=== PATIENT | male | born 1955 | race Caucasian/White ===

== ENCOUNTER → 2018-05-08 14:17 | Outpatient (CLI) | payer MEDICARE, SELFPAY | PROVIDERS: PCP Internal Medicine; Visit Provider Internal Medicine | DX: L89.43 Pressure ulcer of contiguous site of back, buttock and hip, stage 3 (principal); G82.20 Paraplegia, unspecified | CPT/HCPCS: 11042; 87070; 87075; 87077; 87147; 87186; 87205 ==

== ENCOUNTER → 2018-05-14 14:38 | Outpatient (CLI) | payer MEDICARE, SELFPAY ==
--- NOTE | 2018-05-14 | OV.WND_ITS ---
Progress Note Details Patient Name: Tommy Skelton Patient Number: [id number] PatientPatientDate: 05/14/2018 Clinician: Marilin Hernandez Clinician Cosigner: Jackeline John Physician / Epitaxial Reactor Operator: Ricky Castillo SUBJECTIVE Chief Complaint This information was obtained from the patient Wound on left hip. Allergies latex (Severity: Severe, Reaction: rashed and blister.) HPI This information was obtained from the patient 05/14/18. Seen by Dr. Castillo. The patient is now on Augmentin for the Staph positive wound culture taken from his chronic left hip pressure ulcer at his last visit. He does not report adverse side effects nor significant drainage from the ulcer and he's offloading as recommended noting his wheelchair dependent due to paraplegia. Staff also report he's applying a topical poultice to the ulcer base despite being advised at his last visit to not do this. 05/08/18. Seen by Dr. Castillo. The patient returns to clinic with a left hip ulcer he states has been present for 2 weeks and may have started as a spider bite and is located over the site of previous pressure ulcers and along a surgical scar. He's paraplegic and wheelchair dependent and uses an offloading cushion on his chair. He does not report significant drainage at the site and has not been on antibiotics. 04/01/18. Seen by Dr. Castillo. The patient does not report pain nor drainage associated with the trauma wound over the base the penis since his visit last week. He has been applying topical gentamicin as recommended as well. 03/24/18. Seen by Dr. Castillo. The patient returns to clinic with what appears to be a trauma wound on the base of his penis that he states occurred when his condom catheter was too placed too tightly. This occurred about a month ago and of note he is a paraplegic and is now using an indwelling catheter. He has seen his urologist who advised to take amoxicillin however he has refused to do that. 10/02/17. Seen by Dr. Castillo. The patient does not report significant drainage associated with the suprapubic nor left lateral scrotal wound. The culture from the last visit of the scrotal wound grew MRSA and he's been applying topical gentamicin as recommended. Of note, he reports last evening that he had some significant swelling and pain of the scrotum and felt a firmness around the left testicle however much this seems to resolved as of today and he does not report any pain although he notes the swelling persists somewhat. He does not report fevers or feeling unwell and is not currently on oral antibiotics. 09/25/17. Seen by Dr. Castillo. The patient continues to report some pain associated with the wound along the left aspect of the scrotum. He does not report any pain or drainage associated with suprapubic wound however since started taking Augmentin for the ESBL wound culture from 2 weeks ago. 09/18/17. Seen by Dr. Castillo. The patient's wound culture grew an Escherichia coli species with significant resistance. He is not currently on oral antibiotics and has been applying topical gentamicin to the suprapubic nonhealing wound. He continues to report pain in the periwound area and notes that urine will often leak around his condom catheter and has possibly contaminated the wound in the past. He does not report fevers or feeling unwell and does not feel the drainage from the wound in increasing. 09/12/17. Seen by Dr. Castillo. The patient is new to our clinic and presents with a suprapubic wound that he states has resulted from dehiscence of a surgical wound from a month ago following a sizable abscess incision and drainage performed at [facility]. He reports some yellow purulent drainage from the wound site and feels that it's getting larger in diameter. He also has some discomfort during dressing changes. He is a paraplegic and utilizes a condom catheter and also states there is a small wound along the proximal margin of his penis feels that's nearly healed. The patient also reports a recent history of c. diff colitis following treatment with antibiotics that resolved with oral vancomycin. Past Medical History This information was obtained from the patient Patient has a medical history of: Type II Diabetes CVA Hypertension Anxiety Paraplegia Spinal cord injury Urinary Tract Infection (re current) Scrotal mass Complaints and Symptoms This information was obtained from the patient Patient complains of: General Notes: I have reviewed and concur with the Review of Systems and Past Family Social History documents completed by the clinician, I have reviewed and concur with the Wound Assessment document completed by the clinician Genitourinary (): Urinary Incontinence Integumentary (Hair/Skin/Nails): Open Sore Musculoskeletal: Assistive Devices, Muscle Wasting, Muscle Weakness Neurological: Loss of Protective Sensation Prior Wound History: Drainage, Erythema, Pain Patient denies complaints or symptoms related to: Cardiovascular (Central): Irregular heart beat Constitutional Symptoms (General Health): Chills, Fever Ear/Nose/Mouth/Throat: Hearing Loss / Aid Gastrointestinal (GI): Nausea / Vomiting, Stomach/abdominal pain Hematologic/Lymphatic: Bleeding / Clotting Disorders, Bleeding Tendency Prior Wound History: Bleeding Psychiatric: Memory Loss Respiratory: Oxygen Use, Shortness of Breath OBJECTIVE Constitutional Vital signs reviewed and noted. Temperature: 98.6 ?F (37 ?C), Pulse: 101 bpm, Respiratory Rate: 16 breaths/min, Blood Pressure: 155/77 mmHg, Pulse Oximetry: 97 %. Vital Signs Notes: Patient takes insulin but doesn't check his glucose. Ears, Nose, Mouth, and Throat: No clinically significant hearing loss on informal examination. Respiratory: No respiratory distress. Even respirations and without use of accessory muscles.. Musculoskeletal: Left leg flacid paralysis. Integumentary (Hair, Skin) No periwound erythema, warmth, or significant drainage. No periwound rashes appreciated or noted otherwise.. Refer to appropriate clinician wound documentation for this visit; left hip ulcer extends to subcut with base partially covered with pink granulation, remainder fibrin and slough; appears smaller than on last review. Wound #4 Left, Lateral Hip is an acute Stage 3 Pressure Injury Pressure Ulcer and has received a status of Not Healed. Subsequent wound encounter measurements are 1.5cm length x 1cm width x 0.3cm depth, with an area of 1.5 sq cm and a volume of 0.45 cubic cm. No tunneling has been noted. No sinus tract has been noted. No undermining has been noted. There is a moderate amount of serous drainage noted which has no odor. The patient reports no wound pain due to the wound being insensate. The wound margin is rolled. Wound bed has No epithelialization, No eschar, Yes slough, Yes pink, firm granulation. The periwound skin moisture is normal. The periwound skin color is normal. The periwound skin exhibited: Induration. The periwound skin did not exhibit: Brawny Induration, Edema, Excoriation, Callus, Crepitus, Fluctuance, Friable, Rash. The temperature of the periwound skin is WNL. Periwound skin does not exhibit signs or symptoms of infection. Local Pulse is N/A. Neurological: Cranial nerves grossly intact with symmetric function normal by informal observation.. ASSESSMENT Active Problems ICD-10 (Encounter Diagnosis) L89.43 - Pressure ulcer of contiguous site of back, buttock and hip, stage 3 (Encounter Diagnosis) G82.20 - Paraplegia, unspecified (Encounter Diagnosis) L08.9 - Local infection of the skin and subcutaneous tissue, unspecified (Encounter Diagnosis) Z91.19 - Patient's noncompliance with other medical treatment and regimen PROCEDURES Wound #4 Wound #4 (Pressure Ulcer) is located on the left, lateral hip. A skin/ subcutaneous tissue level surgical debridement with a total area debrided of 1.5 sq cm was performed by Ricky Castillo MD. Subcutaneous was removed along with devitalized tissue: slough. The following instrument(s) were used: curette. Pain control was achieved using Lidocaine 2 % Jelly. A time out was conducted prior to the start of the procedure. A minimal amount of bleeding was controlled with pressure. The procedure was tolerated well with a pain level of 0 throughout and a pain level of 0 following the procedure. Post Debridement Measurements: 1.5cm length x 1cm width x 0.4cm depth; with an area of 1.5 sq cm and a volume of 0.6 cubic cm; Additional Information Muscle fascia or bone removed and sent to pathology?: No PLAN Wound Orders: Wound #4 Left, Lateral Hip Anesthetic Topical Xylocaine to wound bed. - In clinic. Cleanser Cleanse Wound: - Normal saline and gauze, may use distilled water at home. May Shower. - Please avoid getting in contact with shower water. Cover with saran wrap and tape. Topical Treatments Antibiotic/Antimicrobial Ointment/Cream. - Gentamicin ointment. Dressings Cover and secure with: - Foam secured with hypafix tape. Change Dressing: - Every other day. Additional Orders: Follow-Up Appointments Return Appointment: - - One week. Other information: If you develop fever, chills, increased pain, drainage, redness or swelling please call our office. If after hours, respond to the ER. Should you experience any significant changes in your wound(s) or have any questions regarding your home care instructions please contact the wound center @ [phone]. If after hours, contact your primary care physician or go to the hospital emergency room. Scribing Attestation I attest, as the nurse, that I scribed these orders for the physician. I've reviewed the clinician's documentation and agree with the evaluation and plan as written. In addition, the patient's ulcer demonstrates evidence of non-viable devitalized tissue which will continue to benefit from sharp debridement to help promote granulation and expedite healing. Also, the patient will continue on antibiotics and apply only topical gentamicin to the ulcer site as recommended. Electronic Signature(s) Signed By: Date: Ricky Castillo MD 05/14/2018 15:30:00 Entered By: Ricky Castillo on 05/14/2018 15:20:40
== END ==
PROVIDERS: PCP Family Medicine; Visit Provider Internal Medicine
DX: L89.223 Pressure ulcer of left hip, stage 3 (principal); G82.20 Paraplegia, unspecified; L08.9 Local infection of the skin and subcutaneous tissue, unspecified; Z91.19 Patient's noncompliance with other medical treatment and regimen
CPT/HCPCS: 11042

== ENCOUNTER → 2018-05-21 13:25 | Outpatient (CLI) | payer MEDICARE, SELFPAY ==
--- NOTE | 2018-05-21 | OV.WND_ITS ---
Progress Note Details Patient Name: Tommy Skelton Patient Number: [id number] PatientPatientDate: 05/21/2018 Clinician: Tamela Escalante Physician / Quality Technician Fiberglass: Enoc Brenner SUBJECTIVE Chief Complaint This information was obtained from the patient Wound on left hip. Allergies latex (Severity: Severe, Reaction: rashed and blister.) HPI This information was obtained from the patient 05/21/18. Seen by Rashid Brenner PA-C. The patient reports stable drainage from his left hip ulcer and he continues on Augmentin for the infection of this ulcer. 05/14/18. Seen by Dr. Castillo. The patient is now on Augmentin for the Staph positive wound culture taken from his chronic left hip pressure ulcer at his last visit. He does not report adverse side effects nor significant drainage from the ulcer and he's offloading as recommended noting his wheelchair dependent due to paraplegia. Staff also report he's applying a topical poultice to the ulcer base despite being advised at his last visit to not do this. 05/08/18. Seen by Dr. Castillo. The patient returns to clinic with a left hip ulcer he states has been present for 2 weeks and may have started as a spider bite and is located over the site of previous pressure ulcers and along a surgical scar. He's paraplegic and wheelchair dependent and uses an offloading cushion on his chair. He does not report significant drainage at the site and has not been on antibiotics. 04/01/18. Seen by Dr. Castillo. The patient does not report pain nor drainage associated with the trauma wound over the base the penis since his visit last week. He has been applying topical gentamicin as recommended as well. 03/24/18. Seen by Dr. Castillo. The patient returns to clinic with what appears to be a trauma wound on the base of his penis that he states occurred when his condom catheter was too placed too tightly. This occurred about a month ago and of note he is a paraplegic and is now using an indwelling catheter. He has seen his urologist who advised to take amoxicillin however he has refused to do that. 10/02/17. Seen by Dr. Castillo. The patient does not report significant drainage associated with the suprapubic nor left lateral scrotal wound. The culture from the last visit of the scrotal wound grew MRSA and he's been applying topical gentamicin as recommended. Of note, he reports last evening that he had some significant swelling and pain of the scrotum and felt a firmness around the left testicle however much this seems to resolved as of today and he does not report any pain although he notes the swelling persists somewhat. He does not report fevers or feeling unwell and is not currently on oral antibiotics. 09/25/17. Seen by Dr. Castillo. The patient continues to report some pain associated with the wound along the left aspect of the scrotum. He does not report any pain or drainage associated with suprapubic wound however since started taking Augmentin for the ESBL wound culture from 2 weeks ago. 09/18/17. Seen by Dr. Castillo. The patient's wound culture grew an Escherichia coli species with significant resistance. He is not currently on oral antibiotics and has been applying topical gentamicin to the suprapubic nonhealing wound. He continues to report pain in the periwound area and notes that urine will often leak around his condom catheter and has possibly contaminated the wound in the past. He does not report fevers or feeling unwell and does not feel the drainage from the wound in increasing. 09/12/17. Seen by Dr. Castillo. The patient is new to our clinic and presents with a suprapubic wound that he states has resulted from dehiscence of a surgical wound from a month ago following a sizable abscess incision and drainage performed at [facility]. He reports some yellow purulent drainage from the wound site and feels that it's getting larger in diameter. He also has some discomfort during dressing changes. He is a paraplegic and utilizes a condom catheter and also states there is a small wound along the proximal margin of his penis feels that's nearly healed. The patient also reports a recent history of c. diff colitis following treatment with antibiotics that resolved with oral vancomycin. Family History This information was obtained from the patient Cancer - Father, Diabetes - Father, Heart Disease - Paternal Grandparents, Kidney Disease - Mother Social History This information was obtained from the patient Never smoker, Lives in - private home -alone, Marital Status - Past Medical History This information was obtained from the patient Patient has a medical history of: Type II Diabetes CVA Hypertension Anxiety Paraplegia Spinal cord injury Urinary Tract Infection (re current) Scrotal mass Complaints and Symptoms This information was obtained from the patient Patient complains of: General Notes: I have reviewed and concur with the Review of Systems and Past Family Social History documents completed by the clinician, I have reviewed and concur with the Wound Assessment document completed by the clinician Genitourinary (): Urinary Incontinence Integumentary (Hair/Skin/Nails): Open Sore Musculoskeletal: Assistive Devices, Muscle Wasting, Muscle Weakness Neurological: Loss of Protective Sensation Prior Wound History: Drainage, Erythema, Pain Patient denies complaints or symptoms related to: Cardiovascular (Central): Irregular heart beat Constitutional Symptoms (General Health): Chills, Fever Ear/Nose/Mouth/Throat: Hearing Loss / Aid Gastrointestinal (GI): Nausea / Vomiting, Stomach/abdominal pain Hematologic/Lymphatic: Bleeding / Clotting Disorders, Bleeding Tendency Prior Wound History: Bleeding Psychiatric: Memory Loss Respiratory: Oxygen Use, Shortness of Breath OBJECTIVE Constitutional Vital signs reviewed. Elevated blood sugar noted. Well developed, lucid, and in no acute distress. . Temperature: 99.2 ?F (37.33 ?C), Pulse: 85 bpm, Respiratory Rate: 16 breaths/min, Blood Pressure: 130/74 mmHg, Capillary Blood Glucose: 231 mg/dl, Pulse Oximetry : 96 %. Ears, Nose, Mouth, and Throat: Grossly intact. Respiratory: No respiratory distress. Even respirations and without use of accessory muscles.. Integumentary (Hair, Skin) Refer to appropriate clinician wound documentation for this visit; ulcer extends to subcutaneous fat layer. . Wound #4 Left, Lateral Hip is an acute Stage 3 Pressure Injury Pressure Ulcer and has received a status of Not Healed. Subsequent wound encounter measurements are 1.6cm length x 1cm width x 0.2cm depth, with an area of 1.6 sq cm and a volume of 0.32 cubic cm. No tunneling has been noted. No sinus tract has been noted. No undermining has been noted. There is a moderate amount of serous drainage noted which has no odor. The patient reports no wound pain due to the wound being insensate. The wound margin is rolled. Wound bed has No epithelialization, No eschar, Yes slough, Yes pink, firm granulation. The periwound skin moisture is normal. The periwound skin color is normal. The periwound skin exhibited: Induration. The periwound skin did not exhibit: Brawny Induration, Edema, Excoriation, Callus, Crepitus, Fluctuance, Friable, Rash. The temperature of the periwound skin is WNL. Periwound skin does not exhibit signs or symptoms of infection. Local Pulse is N/A. Psychiatric: Judgement and insight: Normal affect with normal thought pattern. Alert and oriented 3/3. Memory grossly intact.. Normal affect. Mood appropriate.. ASSESSMENT Active Problems ICD-10 (Encounter Diagnosis) L89.43 - Pressure ulcer of contiguous site of back, buttock and hip, stage 3 (Encounter Diagnosis) G82.20 - Paraplegia, unspecified (Encounter Diagnosis) L08.9 - Local infection of the skin and subcutaneous tissue, unspecified (Encounter Diagnosis) Z91.19 - Patient's noncompliance with other medical treatment and regimen PROCEDURES Wound #4 Wound #4 (Pressure Ulcer) is located on the left, lateral hip. A skin/ subcutaneous tissue level surgical debridement with a total area debrided of 1.6 sq cm was performed by Enoc Brenner PA. Subcutaneous was removed along with devitalized tissue: slough. The following instrument (s) were used: curette. No anesthetic was required due to loss of sensation. A time out was conducted prior to the start of the procedure. A minimal amount of bleeding was controlled with n/a. The procedure was tolerated well with a pain level of 0 throughout and a pain level of 0 following the procedure. Post Debridement Measurements: 1.6cm length x 1cm width x 0.3cm depth; with an area of 1.6 sq cm and a volume of 0.48 cubic cm; Additional Information Muscle fascia or bone removed and sent to pathology?: No PLAN Wound Orders: Wound #4 Left, Lateral Hip Anesthetic Topical Xylocaine to wound bed. - In clinic. Cleanser Cleanse Wound: - Normal saline and gauze, may use distilled water at home. May Shower. - Please avoid getting in contact with shower water. Cover with saran wrap and tape. Topical Treatments Antibiotic/Antimicrobial Ointment/Cream. - Iodosob Dressings Cover and secure with: - Foam secured with hypafix tape. Change Dressing: - Every other day. Additional Orders: Follow-Up Appointments Return Appointment: - - One week. Other information: If you develop fever, chills, increased pain, drainage, redness or swelling please call our office. If after hours, respond to the ER. Should you experience any significant changes in your wound(s) or have any questions regarding your home care instructions please contact the wound center @ [phone]. If after hours, contact your primary care physician or go to the hospital emergency room. Scribing Attestation I attest, as the nurse, that I scribed these orders for the physician. General Notes: Please complete Augmentin as prescribed. I've reviewed the clinician's documentation and agree with the evaluation and plan as written. In addition the patient's ulcer demonstrates evidence of non-viable devitalized tissue which benefits from sharp debridement. Separate from the need for debridement today to speed healing, the patient's infection was assessed and appears to still be active. The patient was enouraged to continue complying with the ordered antimicrobial regemin for ongoing treatment for this issue. Electronic Signature(s) Signed By: Date: Rashid Brenner 05/25/2018 16:56:38 Entered By: Rashid Brenner on 05/25/2018 16:39:13
== END ==
PROVIDERS: PCP Family Medicine; Visit Provider Internal Medicine
DX: L89.223 Pressure ulcer of left hip, stage 3 (principal); G82.20 Paraplegia, unspecified; L08.9 Local infection of the skin and subcutaneous tissue, unspecified
CPT/HCPCS: 11042

== ENCOUNTER → 2018-05-28 14:55 | Outpatient (CLI) | payer MEDICARE, SELFPAY ==
--- NOTE | 2018-05-28 | OV.WND_ITS ---
Progress Note Details Patient Name: Tommy Skelton Patient Number: [id number] PatientPatientDate: 05/28/2018 Clinician: Tonya Munoz Clinician Cosigner: Keri Acosta Physician / Remelt Furnace Expediter: Ricky Castillo SUBJECTIVE Chief Complaint This information was obtained from the patient Wound on left hip. Allergies latex (Severity: Severe, Reaction: rashed and blister.) HPI This information was obtained from the patient 05/28/18. Seen by Dr. Castillo. The patient does not report significant drainage associated with the left hip pressure ulcer and he's offloading as much as possible noting he's wheelchair dependent due to paraplegia. The nurse also states he's applying an oregano spray to the ulcer despite being advised to only dress and treat the ulcer as per our recommendations. He also reports recurrence of some swelling around his suprapubic catheter site however has not contacted his urologist and he states he's hoping to re-establish care with another urologist in [place]. 05/21/18. Seen by Rashid Brenner PA-C. The patient reports stable drainage from his left hip ulcer and he continues on Augmentin for the infection of this ulcer. 05/14/18. Seen by Dr. Castillo. The patient is now on Augmentin for the Staph positive wound culture taken from his chronic left hip pressure ulcer at his last visit. He does not report adverse side effects nor significant drainage from the ulcer and he's offloading as recommended noting his wheelchair dependent due to paraplegia. Staff also report he's applying a topical poultice to the ulcer base despite being advised at his last visit to not do this. 05/08/18. Seen by Dr. Castillo. The patient returns to clinic with a left hip ulcer he states has been present for 2 weeks and may have started as a spider bite and is located over the site of previous pressure ulcers and along a surgical scar. He's paraplegic and wheelchair dependent and uses an offloading cushion on his chair. He does not report significant drainage at the site and has not been on antibiotics. 04/01/18. Seen by Dr. Castillo. The patient does not report pain nor drainage associated with the trauma wound over the base the penis since his visit last week. He has been applying topical gentamicin as recommended as well. 03/24/18. Seen by Dr. Castillo. The patient returns to clinic with what appears to be a trauma wound on the base of his penis that he states occurred when his condom catheter was too placed too tightly. This occurred about a month ago and of note he is a paraplegic and is now using an indwelling catheter. He has seen his urologist who advised to take amoxicillin however he has refused to do that. 10/02/17. Seen by Dr. Castillo. The patient does not report significant drainage associated with the suprapubic nor left lateral scrotal wound. The culture from the last visit of the scrotal wound grew MRSA and he's been applying topical gentamicin as recommended. Of note, he reports last evening that he had some significant swelling and pain of the scrotum and felt a firmness around the left testicle however much this seems to resolved as of today and he does not report any pain although he notes the swelling persists somewhat. He does not report fevers or feeling unwell and is not currently on oral antibiotics. 09/25/17. Seen by Dr. Castillo. The patient continues to report some pain associated with the wound along the left aspect of the scrotum. He does not report any pain or drainage associated with suprapubic wound however since started taking Augmentin for the ESBL wound culture from 2 weeks ago. 09/18/17. Seen by Dr. Castillo. The patient's wound culture grew an Escherichia coli species with significant resistance. He is not currently on oral antibiotics and has been applying topical gentamicin to the suprapubic nonhealing wound. He continues to report pain in the periwound area and notes that urine will often leak around his condom catheter and has possibly contaminated the wound in the past. He does not report fevers or feeling unwell and does not feel the drainage from the wound in increasing. 09/12/17. Seen by Dr. Castillo. The patient is new to our clinic and presents with a suprapubic wound that he states has resulted from dehiscence of a surgical wound from a month ago following a sizable abscess incision and drainage performed at [facility]. He reports some yellow purulent drainage from the wound site and feels that it's getting larger in diameter. He also has some discomfort during dressing changes. He is a paraplegic and utilizes a condom catheter and also states there is a small wound along the proximal margin of his penis feels that's nearly healed. The patient also reports a recent history of c. diff colitis following treatment with antibiotics that resolved with oral vancomycin. Past Medical History This information was obtained from the patient Patient has a medical history of: Type II Diabetes CVA Hypertension Anxiety Paraplegia Spinal cord injury Urinary Tract Infection (re current) Scrotal mass Complaints and Symptoms This information was obtained from the patient Patient complains of: General Notes: I have reviewed and concur with the Review of Systems and Past Family Social History documents completed by the clinician, I have reviewed and concur with the Wound Assessment document completed by the clinician Genitourinary (): Urinary Incontinence Integumentary (Hair/Skin/Nails): Open Sore Musculoskeletal: Assistive Devices, Muscle Wasting, Muscle Weakness Neurological: Loss of Protective Sensation Prior Wound History: Drainage, Erythema, Pain Patient denies complaints or symptoms related to: Cardiovascular (Central): Irregular heart beat Constitutional Symptoms (General Health): Chills, Fever Ear/Nose/Mouth/Throat: Hearing Loss / Aid Gastrointestinal (GI): Nausea / Vomiting, Stomach/abdominal pain Hematologic/Lymphatic: Bleeding / Clotting Disorders, Bleeding Tendency Prior Wound History: Bleeding Psychiatric: Memory Loss Respiratory: Oxygen Use, Shortness of Breath OBJECTIVE Constitutional BP normal; Low grade fever; Alert and in no distress. Well developed. Alert. Clean appearing.. Height/Length: 73 in (185.42 cm), Weight: 185 lbs (84.09 kgs), BMI: 24.4, Temperature: 99.5 ?F (37.5 ?C), Pulse: 86 bpm, Respiratory Rate: 16 breaths/min, Blood Pressure: 131/71 mmHg, Pulse Oximetry: 97 %. Ears, Nose, Mouth, and Throat: No clinically significant hearing loss on informal examination. Respiratory: No respiratory distress. Even respirations and without use of accessory muscles.. Gastrointestinal (GI): Obese. Nondistended.. Musculoskeletal: Significant left gluteal wasting. Integumentary (Hair, Skin) No periwound erythema, warmth, or significant drainage. No periwound rashes appreciated or noted otherwise.. Refer to appropriate clinician wound documentation for this visit; left hip ulcer extends to subcut with base mostly covered with pink granulation, minimal slough; smaller than on previous review. Wound #4 Left, Lateral Hip is an acute Stage 3 Pressure Injury Pressure Ulcer and has received a status of Not Healed. Subsequent wound encounter measurements are 0.8cm length x 1.4cm width x 0.2cm depth, with an area of 1.12 sq cm and a volume of 0.224 cubic cm. No tunneling has been noted. No sinus tract has been noted. No undermining has been noted. There is a scant amount of purulent drainage noted which has no odor. The patient reports no wound pain due to the wound being insensate. The wound margin is rolled. Wound bed has No epithelialization, No eschar, Yes slough, Yes bright red, firm granulation. The periwound skin moisture is normal. The periwound skin color is normal. The periwound skin exhibited: Induration. The periwound skin did not exhibit: Brawny Induration, Edema, Excoriation, Callus, Crepitus, Fluctuance, Friable, Rash. The temperature of the periwound skin is WNL. Periwound skin does not exhibit signs or symptoms of infection. Local Pulse is N/A. Neurological: Cranial nerves grossly intact with symmetric function normal by informal observation.. ASSESSMENT Active Problems ICD-10 (Encounter Diagnosis) L89.43 - Pressure ulcer of contiguous site of back, buttock and hip, stage 3 (Encounter Diagnosis) G82.20 - Paraplegia, unspecified (Encounter Diagnosis) Z91.19 - Patient's noncompliance with other medical treatment and regimen (Encounter Diagnosis) M79.9 - Soft tissue disorder, unspecified PROCEDURES Wound #4 Wound #4 (Pressure Ulcer) is located on the left, lateral hip. A skin/ subcutaneous tissue level surgical debridement with a total area debrided of 1.12 sq cm was performed by Ricky Castillo MD. Subcutaneous was removed along with devitalized tissue: slough. The following instrument(s) were used: curette. Pain control was achieved using 2% Lido. A time out was conducted prior to the start of the procedure. A minimal amount of bleeding was controlled with silver nitrate. The procedure was tolerated well with a pain level of 0 throughout and a pain level of 0 following the procedure. Post Debridement Measurements: 0.8cm length x 1.4cm width x 0.2cm depth; with an area of 1.12 sq cm and a volume of 0.224 cubic cm; Additional Information Muscle fascia or bone removed and sent to pathology?: No PLAN Wound Orders: Wound #4 Left, Lateral Hip Cleanser Cleanse Wound: - With Normal saline or distilled water. Dressings Pack wound: - Gentamicin to wound. Primary dressing: - Border foam Change Dressing: - Daily Follow-Up Appointments Return Appointment: - - One week Medications prescribed: gentamicin - topical 0.1 % ointment other for 7 days starting 05/28/2018 I've reviewed the clinician's documentation and agree with the evaluation and plan as written. In addition, the patient's ulcer demonstrates evidence of non-viable devitalized tissue which will continue to benefit from sharp debridement to help promote granulation and expedite healing. Also, the patient's ulcer continues to improve and he'll continue to try to offload the site as much as possible. We've also advised him that there's not currently a urologist working in [place] and recommended he contact Dr. Monte's office if he'd like to discuss the recurrent supra-pubic soft tissue swelling. Electronic Signature(s) Signed By: Date: Ricky Castillo MD 05/29/2018 09:59:55 Entered By: Ricky Castillo on 05/29/2018 09:01:42
== END ==
PROVIDERS: PCP Family Medicine; Visit Provider Internal Medicine
DX: L89.223 Pressure ulcer of left hip, stage 3 (principal); G82.20 Paraplegia, unspecified; Z91.19 Patient's noncompliance with other medical treatment and regimen; M79.9 Soft tissue disorder, unspecified
CPT/HCPCS: 11042

== ENCOUNTER → 2018-06-03 14:59 | Outpatient (CLI) | payer MEDICARE, SELFPAY ==
--- NOTE | 2018-06-03 | OV.WND_ITS ---
Progress Note Details Patient Name: Tommy Skelton Patient Number: [id number] PatientPatientDate: 06/03/2018 Clinician: Marilin Hernandez Physician / Mechanical Assembler: Ricky Castillo SUBJECTIVE Chief Complaint This information was obtained from the patient Wound on left hip. Cut on penis . Allergies latex (Severity: Severe, Reaction: rashed and blister.) HPI This information was obtained from the patient 06/03/18. Seen by Dr. Castillo. The patient does not report significant drainage associated with the left hip pressure ulcer. He does report however significant clear drainage from the suprapubic wound site this morning and complains of a progressive ulcer at the base of his penis along the margin of the condom catheter. Complicating his condition is the fact he's paraplegic and he's has a number of urologic complications including recently having difficulty with his indwelling urinary catheter. He's scheduled to see urology on 06/05 for this issue. 05/28/18. Seen by Dr. Castillo. The patient does not report significant drainage associated with the left hip pressure ulcer and he's offloading as much as possible noting he's wheelchair dependent due to paraplegia. The nurse also states he's applying an oregano spray to the ulcer despite being advised to only dress and treat the ulcer as per our recommendations. He also reports recurrence of some swelling around his suprapubic catheter site however has not contacted his urologist and he states he's hoping to re-establish care with another urologist in [place]. 05/21/18. Seen by Rashid Brenner PA-C. The patient reports stable drainage from his left hip ulcer and he continues on Augmentin for the infection of this ulcer. 05/14/18. Seen by Dr. Castillo. The patient is now on Augmentin for the Staph positive wound culture taken from his chronic left hip pressure ulcer at his last visit. He does not report adverse side effects nor significant drainage from the ulcer and he's offloading as recommended noting his wheelchair dependent due to paraplegia. Staff also report he's applying a topical poultice to the ulcer base despite being advised at his last visit to not do this. 05/08/18. Seen by Dr. Castillo. The patient returns to clinic with a left hip ulcer he states has been present for 2 weeks and may have started as a spider bite and is located over the site of previous pressure ulcers and along a surgical scar. He's paraplegic and wheelchair dependent and uses an offloading cushion on his chair. He does not report significant drainage at the site and has not been on antibiotics. 04/01/18. Seen by Dr. Castillo. The patient does not report pain nor drainage associated with the trauma wound over the base the penis since his visit last week. He has been applying topical gentamicin as recommended as well. 03/24/18. Seen by Dr. Castillo. The patient returns to clinic with what appears to be a trauma wound on the base of his penis that he states occurred when his condom catheter was too placed too tightly. This occurred about a month ago and of note he is a paraplegic and is now using an indwelling catheter. He has seen his urologist who advised to take amoxicillin however he has refused to do that. 10/02/17. Seen by Dr. Castillo. The patient does not report significant drainage associated with the suprapubic nor left lateral scrotal wound. The culture from the last visit of the scrotal wound grew MRSA and he's been applying topical gentamicin as recommended. Of note, he reports last evening that he had some significant swelling and pain of the scrotum and felt a firmness around the left testicle however much this seems to resolved as of today and he does not report any pain although he notes the swelling persists somewhat. He does not report fevers or feeling unwell and is not currently on oral antibiotics. 09/25/17. Seen by Dr. Castillo. The patient continues to report some pain associated with the wound along the left aspect of the scrotum. He does not report any pain or drainage associated with suprapubic wound however since started taking Augmentin for the ESBL wound culture from 2 weeks ago. 09/18/17. Seen by Dr. Castillo. The patient's wound culture grew an Escherichia coli species with significant resistance. He is not currently on oral antibiotics and has been applying topical gentamicin to the suprapubic nonhealing wound. He continues to report pain in the periwound area and notes that urine will often leak around his condom catheter and has possibly contaminated the wound in the past. He does not report fevers or feeling unwell and does not feel the drainage from the wound in increasing. 09/12/17. Seen by Dr. Castillo. The patient is new to our clinic and presents with a suprapubic wound that he states has resulted from dehiscence of a surgical wound from a month ago following a sizable abscess incision and drainage performed at [facility]. He reports some yellow purulent drainage from the wound site and feels that it's getting larger in diameter. He also has some discomfort during dressing changes. He is a paraplegic and utilizes a condom catheter and also states there is a small wound along the proximal margin of his penis feels that's nearly healed. The patient also reports a recent history of c. diff colitis following treatment with antibiotics that resolved with oral vancomycin. Past Medical History This information was obtained from the patient Patient has a medical history of: Type II Diabetes CVA Hypertension Anxiety Paraplegia Spinal cord injury Urinary Tract Infection (re current) Scrotal mass Complaints and Symptoms This information was obtained from the patient Patient complains of: General Notes: I have reviewed and concur with the Review of Systems and Past Family Social History documents completed by the clinician, I have reviewed and concur with the Wound Assessment document completed by the clinician Genitourinary (): Urinary Incontinence Integumentary (Hair/Skin/Nails): Open Sore Musculoskeletal: Assistive Devices, Muscle Wasting, Muscle Weakness Neurological: Loss of Protective Sensation Prior Wound History: Drainage, Erythema, Pain Patient denies complaints or symptoms related to: Cardiovascular (Central): Irregular heart beat Constitutional Symptoms (General Health): Chills, Fever Ear/Nose/Mouth/Throat: Hearing Loss / Aid Gastrointestinal (GI): Nausea / Vomiting, Stomach/abdominal pain Hematologic/Lymphatic: Bleeding / Clotting Disorders, Bleeding Tendency Prior Wound History: Bleeding Psychiatric: Memory Loss Respiratory: Oxygen Use, Shortness of Breath OBJECTIVE Constitutional Vital signs reviewed and noted. Well developed. Alert. Clean appearing.. Height/ Length: 73 in (185.42 cm), Weight: 185 lbs (84.09 kgs), BMI: 24.4, Temperature: 98.7 ?F ( 37.06 ?C), Pulse: 97 bpm, Respiratory Rate: 16 breaths/min, Blood Pressure: 126/63 mmHg, Pulse Oximetry: 96 %. Ears, Nose, Mouth, and Throat: No clinically significant hearing loss on informal examination. Respiratory: No respiratory distress. Even respirations and without use of accessory muscles.. Musculoskeletal: Significant left gluteal wasting. Integumentary (Hair, Skin) Moderate periwound erythema around the base of the penis wound. Refer to appropriate clinician wound documentation for this visit; left hip ulcer extends to subcut with base mostly covered with pink granulation, smaller than on previous review; linear ulcer at base of penis extends to subcu with base covered with wet slough, no purulent drainage; suprapubic wound appears clean and without appreciable drainage on probing with swab. Wound #4 Left, Lateral Hip is an acute Stage 3 Pressure Injury Pressure Ulcer and has received a status of Not Healed. Subsequent wound encounter measurements are 0.6cm length x 0.3cm width x 0.1cm depth, with an area of 0.18 sq cm and a volume of 0.018 cubic cm. No tunneling has been noted. No sinus tract has been noted. No undermining has been noted. There is a scant amount of purulent drainage noted which has no odor. The patient reports no wound pain due to the wound being insensate. The wound margin is rolled. Wound bed has No epithelialization, No eschar, Yes slough, Yes pink, firm granulation. The periwound skin moisture is normal. The periwound skin color is normal. The periwound skin exhibited: Induration. The periwound skin did not exhibit: Brawny Induration, Edema, Excoriation, Callus, Crepitus, Fluctuance, Friable, Rash. The temperature of the periwound skin is WNL. Periwound skin does not exhibit signs or symptoms of infection. Local Pulse is N/A. Wound #5 Perineum is an acute Full Thickness Surgical Wound and has received a status of Not Healed. Initial wound encounter measurements are 0.3cm length x 0.3cm width x 0.2cm depth, with an area of 0.09 sq cm and a volume of 0.018 cubic cm. No tunneling has been noted. No sinus tract has been noted. No undermining has been noted. There is a moderate amount of serous drainage noted which has no odor. The patient reports a wound pain of level 0/10. The wound margin is attached. Wound bed has No epithelialization, No eschar, No slough, No granulation. The periwound skin texture is normal. The periwound skin moisture is normal. The periwound skin color is normal. Wound #6 Penis is an acute Full Thickness Trauma Wound and has received a status of Not Healed. Initial wound encounter measurements are 4.5cm length x 1.5cm width x 0.1cm depth, with an area of 6.75 sq cm and a volume of 0.675 cubic cm. No tunneling has been noted. No sinus tract has been noted. No undermining has been noted. There is a small amount of serous drainage noted which has no odor. The patient reports a wound pain of level 0/10. The wound margin is attached. Wound bed has No epithelialization, No eschar, Yes slough, No granulation. The periwound skin texture is normal. The periwound skin moisture is normal. The periwound skin color is normal. The temperature of the periwound skin is WNL. Periwound skin presents with s/s of infection. Neurological: Cranial nerves grossly intact with symmetric function normal by informal observation.. ASSESSMENT Active Problems ICD-10 (Encounter Diagnosis) L89.43 - Pressure ulcer of contiguous site of back, buttock and hip, stage 3 (Encounter Diagnosis) G82.20 - Paraplegia, unspecified (Encounter Diagnosis) S31.20XD - Unspecified open wound of penis, subsequent encounter (Encounter Diagnosis) T81.31XD - Disruption of external operation (surgical) wound, not elsewhere classified, subsequent encounter (Encounter Diagnosis) L08.9 - Local infection of the skin and subcutaneous tissue, unspecified PROCEDURES Wound #4 Wound #4 (Pressure Ulcer) is located on the left, lateral hip. A skin/ subcutaneous tissue level surgical debridement with a total area debrided of 0.36 sq cm was performed by Ricky Castillo MD. Subcutaneous was removed along with devitalized tissue: slough. The following instrument(s) were used: curette. Pain control was achieved using 4% Lido. A time out was conducted prior to the start of the procedure. A minimal amount of bleeding was controlled with pressure. The procedure was tolerated well with a pain level of 0 throughout and a pain level of 0 following the procedure. Post Debridement Measurements: 0.6cm length x 0.6cm width x 0.2cm depth; with an area of 0.36 sq cm and a volume of 0.072 cubic cm; PLAN Wound Orders: Wound #4 Left, Lateral Hip Cleanser Cleanse Wound: - Normal saline or distilled water Topical Treatments Antibiotic/Antimicrobial Ointment/Cream. - Gentamicin Dressings Primary dressing: - Border foam Follow-Up Appointments Return Appointment: - - One week. Scribing Attestation I attest, as the nurse, that I scribed these orders for the physician. Wound #5 Perineum Cleanser Cleanse Wound: - Normal saline or distilled water Topical Treatments Antibiotic/Antimicrobial Ointment/Cream. - Gentamicin Dressings Primary dressing: - Gentamicin then poise pad Follow-Up Appointments Return Appointment: - - One week. Scribing Attestation I attest, as the nurse, that I scribed these orders for the physician. Wound #6 Penis Cleanser Cleanse Wound: - Normal saline or distilled water Topical Treatments Antibiotic/Antimicrobial Ointment/Cream. - Gentamicin Dressings Primary dressing: - Gentamicin then poise pad Follow-Up Appointments Return Appointment: - - One week. Scribing Attestation I attest, as the nurse, that I scribed these orders for the physician. Medications prescribed: Augmentin - oral 875 mg-125 mg tablet twice daily for 5 days for infected wound starting 06/03/2018 General Notes: Start antibiotic and finish in 7 days. I've reviewed the clinician's documentation and agree with the evaluation and plan as written. In addition, the patient's ulcer demonstrates evidence of non-viable devitalized tissue which will continue to benefit from sharp debridement to help promote granulation and expedite healing. Also, the patient's left hip ulcer is making good progress in terms of healing. The wound along the base of the penis appears infected however and this has been cultured and I' ve started him empirically on Augmentin. The suprapubic ulcer has also been cultured and we 'll await feedback from his urologist regarding placement of the Renteria catheter. Electronic Signature(s) Signed By: Date: Ricky Castillo MD 06/05/2018 08:46:21 Entered By: Ricky Castillo on 06/05/2018 08:35:24
== END ==
PROVIDERS: PCP Family Medicine; Visit Provider Internal Medicine
DX: L89.43 Pressure ulcer of contiguous site of back, buttock and hip, stage 3 (principal); S31.20XD Unspecified open wound of penis, subsequent encounter; T81.31XD Disruption of external operation (surgical) wound, not elsewhere classified, subsequent encounter; G82.20 Paraplegia, unspecified; L08.9 Local infection of the skin and subcutaneous tissue, unspecified
CPT/HCPCS: 11042; 87070; 87075; 87077; 87186; 87205

== ENCOUNTER → 2018-06-10 12:49 | Outpatient (CLI) | payer MEDICARE, SELFPAY ==
--- NOTE | 2018-06-10 | DI.CT.S_ITS ---
PROCEDURE: CT PELVIS W CON INDICATIONS: INFECTION DUE TO IPP TECHNIQUE: After the administration of oral contrast and intravenous contrast, 5 mm thick sections acquired from the iliac crests to the symphysis. 5 mm thick coronal and sagittal reformats were acquired. For radiation dose reduction, the following was used: automated exposure control, adjustment of mA and/or kV according to patient size. COMPARISON: [facility], [place], TESTICLE IMAGING, 10/18/2017, 15:09. [facility], CT, KIDNEY/ URETER/BLADDER, 08/16/2017, 14:49. [facility], CT, ABDOMEN/PELVIS WITH CONTRAST, 08/14/2017, 19:54. [facility], [place], TESTICLE IMAGING, 08/14/2017, 18:20. [facility], CT, PELVIS WITHOUT CONTRAST, 12/21/2016, 14:37. FINDINGS: Image quality: Excellent. Peritoneum and bowel: Contrast enhanced bowel loops demonstrate normal wall thickness and caliber. No free fluid or air. The rectum appears prolapsed, unchanged. Genitourinary: Bladder is decompressed with a Renteria catheter. Severe bladder wall thickening is present. The prosthesis is present. There is significant thickening within the scrotal healy. There are small circumscribed foci of fluid present at the perineum/scrotal junction on the left, the largest measuring 11 mm. In addition, layering fluid is also present within the scrotum. Inflammatory changes also noted along the perineum particularly on left. Nodes and vessels: No iliac, pelvic, or inguinal adenopathy. Iliac vessels demonstrate normal size and enhancement. Bones: No suspicious bony lesions. There is chronic deformity of the left inferior pubic ramus an issue. Miscellaneous: No inguinal hernias. Partially visualized bilateral renal cysts are unchanged. IMPRESSION: 1. Inflammation, fluid levels as well as areas of rim-enhancing fluid within the scrotum and perineum as described above. Small foci of fluid enhancement are suggestive of small microabscesses. It is noted that while the appearance is most suggestive of infection or inflammation, chronicity is somewhat indeterminate as multiple prior exams demonstrated very degrees of similar inflammation, fluid, air and/or abnormal enhancement. The above findings were discussed with Dr. Kate Crespo on 06/10/18 at 4:45 PM Dictated by: Elvira Ibarra M.D. on 06/10/2018 at 16:50 Approved by: Elvira Ibarra M.D. on 06/10/2018 at 17:06
[2018-06-10 13:32] LABS: Blood Urea Nitrogen 14 mg/dL (9-20); Calcium 9.5 mg/dL (8.4-10.2); Carbon Dioxide 24 mmol/L (22-32); Chloride 96 mmol/L (98-107); Estimated Glomerular Filt Rate > 60.0 mL/min (>60); Glucose 264 mg/dL (80-110); HEMOLYSIS < 15 (0-50); Potassium 4.8 mmol/L (3.4-5.1); Sodium 135 mmol/L (137-145)
== END ==
PROVIDERS: PCP Family Medicine; Visit Provider Specialist
DX: N40.1 Benign prostatic hyperplasia with lower urinary tract symptoms (principal); M79.89 Other specified soft tissue disorders; R19.00 Intra-abdominal and pelvic swelling, mass and lump, unspecified site
CPT/HCPCS: 36415; 72193; 80048; Q9967

== ENCOUNTER → 2018-06-10 13:34 | Outpatient (CLI) | payer MEDICARE, SELFPAY ==
--- NOTE | 2018-06-10 | OV.WND_ITS ---
Progress Note Details Patient Name: Tommy Skelton Patient Number: [id number] PatientPatientDate: 06/10/2018 Clinician: Tamela Escalante Physician / Equipment Tester: Ricky Castillo SUBJECTIVE Chief Complaint This information was obtained from the patient Wound on left hip. Cut on penis . Allergies latex (Severity: Severe, Reaction: rashed and blister.) HPI This information was obtained from the patient 06/10/18. Seen by Dr. Castillo. The patient does not report significant drainage associated with the left hip pressure ulcer. He's now on Bactrim for the E. coli positive culture taken from the circumferential ulcer at the base of his penis that was caused while wearing a condom catheter. He's paraplegic and had a Renteria catheter placed since his last visit. He also has a CT scheduled for today to evaluate for the persistent drainage from the site of his suprapubic catheter wound. 06/03/18. Seen by Dr. Castillo. The patient does not report significant drainage associated with the left hip pressure ulcer. He does report however significant clear drainage from the suprapubic wound site this morning and complains of a progressive ulcer at the base of his penis along the margin of the condom catheter. Complicating his condition is the fact he's paraplegic and he's has a number of urologic complications including recently having difficulty with his indwelling urinary catheter. He's scheduled to see urology on 06/05 for this issue. 05/28/18. Seen by Dr. Castillo. The patient does not report significant drainage associated with the left hip pressure ulcer and he's offloading as much as possible noting he's wheelchair dependent due to paraplegia. The nurse also states he's applying an oregano spray to the ulcer despite being advised to only dress and treat the ulcer as per our recommendations. He also reports recurrence of some swelling around his suprapubic catheter site however has not contacted his urologist and he states he's hoping to re-establish care with another urologist in [place]. 05/21/18. Seen by Rashid Brenner PA-C. The patient reports stable drainage from his left hip ulcer and he continues on Augmentin for the infection of this ulcer. 05/14/18. Seen by Dr. Castillo. The patient is now on Augmentin for the Staph positive wound culture taken from his chronic left hip pressure ulcer at his last visit. He does not report adverse side effects nor significant drainage from the ulcer and he's offloading as recommended noting his wheelchair dependent due to paraplegia. Staff also report he's applying a topical poultice to the ulcer base despite being advised at his last visit to not do this. 05/08/18. Seen by Dr. Castillo. The patient returns to clinic with a left hip ulcer he states has been present for 2 weeks and may have started as a spider bite and is located over the site of previous pressure ulcers and along a surgical scar. He's paraplegic and wheelchair dependent and uses an offloading cushion on his chair. He does not report significant drainage at the site and has not been on antibiotics. 04/01/18. Seen by Dr. Castillo. The patient does not report pain nor drainage associated with the trauma wound over the base the penis since his visit last week. He has been applying topical gentamicin as recommended as well. 03/24/18. Seen by Dr. Castillo. The patient returns to clinic with what appears to be a trauma wound on the base of his penis that he states occurred when his condom catheter was too placed too tightly. This occurred about a month ago and of note he is a paraplegic and is now using an indwelling catheter. He has seen his urologist who advised to take amoxicillin however he has refused to do that. 10/02/17. Seen by Dr. Castillo. The patient does not report significant drainage associated with the suprapubic nor left lateral scrotal wound. The culture from the last visit of the scrotal wound grew MRSA and he's been applying topical gentamicin as recommended. Of note, he reports last evening that he had some significant swelling and pain of the scrotum and felt a firmness around the left testicle however much this seems to resolved as of today and he does not report any pain although he notes the swelling persists somewhat. He does not report fevers or feeling unwell and is not currently on oral antibiotics. 09/25/17. Seen by Dr. Castillo. The patient continues to report some pain associated with the wound along the left aspect of the scrotum. He does not report any pain or drainage associated with suprapubic wound however since started taking Augmentin for the ESBL wound culture from 2 weeks ago. 09/18/17. Seen by Dr. Castillo. The patient's wound culture grew an Escherichia coli species with significant resistance. He is not currently on oral antibiotics and has been applying topical gentamicin to the suprapubic nonhealing wound. He continues to report pain in the periwound area and notes that urine will often leak around his condom catheter and has possibly contaminated the wound in the past. He does not report fevers or feeling unwell and does not feel the drainage from the wound in increasing. 09/12/17. Seen by Dr. Castillo. The patient is new to our clinic and presents with a suprapubic wound that he states has resulted from dehiscence of a surgical wound from a month ago following a sizable abscess incision and drainage performed at [facility]. He reports some yellow purulent drainage from the wound site and feels that it's getting larger in diameter. He also has some discomfort during dressing changes. He is a paraplegic and utilizes a condom catheter and also states there is a small wound along the proximal margin of his penis feels that's nearly healed. The patient also reports a recent history of c. diff colitis following treatment with antibiotics that resolved with oral vancomycin. Past Medical History This information was obtained from the patient Patient has a medical history of: Type II Diabetes CVA Hypertension Anxiety Paraplegia Spinal cord injury Urinary Tract Infection (re current) Complaints and Symptoms This information was obtained from the patient Patient complains of: General Notes: I have reviewed and concur with the Review of Systems and Past Family Social History documents completed by the clinician, I have reviewed and concur with the Wound Assessment document completed by the clinician Genitourinary (): Urinary Incontinence Integumentary (Hair/Skin/Nails): Open Sore Musculoskeletal: Assistive Devices, Muscle Wasting, Muscle Weakness Neurological: Loss of Protective Sensation Prior Wound History: Drainage, Erythema, Pain Patient denies complaints or symptoms related to: Cardiovascular (Central): Irregular heart beat Constitutional Symptoms (General Health): Chills, Fever Ear/Nose/Mouth/Throat: Hearing Loss / Aid Gastrointestinal (GI): Nausea / Vomiting, Stomach/abdominal pain Hematologic/Lymphatic: Bleeding / Clotting Disorders, Bleeding Tendency Prior Wound History: Bleeding Psychiatric: Memory Loss Respiratory: Oxygen Use, Shortness of Breath OBJECTIVE Constitutional BP normal; Low grade fever; Alert and in no distress. Well developed. Alert. Clean appearing.. Height/Length: 73 in (185.42 cm), Weight: 185 lbs (84.09 kgs), BMI: 24.4, Temperature: 99.2 ?F (37.33 ?C), Pulse: 95 bpm, Respiratory Rate: 16 breaths/min, Blood Pressure: 123/63 mmHg, Pulse Oximetry: 95 %. Ears, Nose, Mouth, and Throat: No clinically significant hearing loss on informal examination. Respiratory: No respiratory distress. Even respirations and without use of accessory muscles.. Gastrointestinal (GI): Obese. Nondistended.. Musculoskeletal: Left leg spastic paralysis. Integumentary (Hair, Skin) Mild periwound erythema without warmth. Refer to appropriate clinician wound documentation for this visit; left hip ulcer extends to dermis; linear ulcer beneath base of penis extends to subcut, base covered with slough and minimal pink granulation. Wound #4 Left, Lateral Hip is an acute Stage 3 Pressure Injury Pressure Ulcer and has received a status of Not Healed. Subsequent wound encounter measurements are 0cm length x 0cm width with no measurable depth, with an area of 0 sq cm . No tunneling has been noted. No sinus tract has been noted. No undermining has been noted. There was no drainage noted. The patient reports no wound pain due to the wound being insensate. The wound margin is rolled. Wound bed has Yes epithelialization, No eschar, No slough, No granulation. The periwound skin texture is normal. The periwound skin moisture is normal. The periwound skin color is normal. The temperature of the periwound skin is WNL. Periwound skin does not exhibit signs or symptoms of infection. Local Pulse is N/A. Wound #5 Perineum is an acute Full Thickness Surgical Wound and has received a status of Not Healed. Subsequent wound encounter measurements are 0.3cm length x 0.3cm width x 0.2cm depth, with an area of 0.09 sq cm and a volume of 0.018 cubic cm. No tunneling has been noted. No sinus tract has been noted. No undermining has been noted. There is a large amount of serous drainage noted which has no odor. The patient reports a wound pain of level 0/10. The wound margin is attached. Wound bed has No epithelialization, No eschar, No slough, No granulation. The periwound skin texture is normal. The periwound skin moisture is normal. The periwound skin color is normal. The temperature of the periwound skin is WNL. Periwound skin does not exhibit signs or symptoms of infection. Local Pulse is N/A. Wound #6 Penis is an acute Full Thickness Trauma Wound and has received a status of Not Healed. Subsequent wound encounter measurements are 1.5cm length x 4cm width x 0.1cm depth, with an area of 6 sq cm and a volume of 0.6 cubic cm. No tunneling has been noted. No sinus tract has been noted. No undermining has been noted. There is a small amount of serous drainage noted which has no odor. The patient reports a wound pain of level 0/ 10. The wound margin is attached. Wound bed has Yes epithelialization, No eschar, Yes slough, Yes pink, firm granulation. The periwound skin texture is normal. The periwound skin moisture is normal. The periwound skin color is normal. The temperature of the periwound skin is WNL. Periwound skin presents with s/s of infection. Confirmation Description and Treatment Plan is: Confirmed Local, Systemic Antibiotics Prescribed. Local Pulse is N/A. ASSESSMENT Active Problems ICD-10 (Encounter Diagnosis) L89.43 - Pressure ulcer of contiguous site of back, buttock and hip, stage 3 (Encounter Diagnosis) G82.20 - Paraplegia, unspecified (Encounter Diagnosis) S31.20XD - Unspecified open wound of penis, subsequent encounter (Encounter Diagnosis) T81.31XD - Disruption of external operation (surgical) wound, not elsewhere classified, subsequent encounter (Encounter Diagnosis) B96.29 - Other Escherichia coli [E. coli] as the cause of diseases classified elsewhere PROCEDURES Wound #4 Wound #4 (Pressure Ulcer) is located on the left, lateral hip. A selective debridement with a total area debrided of 0.12 sq cm was performed by Ricky Castillo MD. to remove devitalized tissue: exudate and slough. The following instrument(s) were used: curette. No anesthetic was required due to loss of sensation. A time out was conducted prior to the start of the procedure. A minimal amount of bleeding was controlled with n/a. The procedure was tolerated well with a loss of sensation throughout and a loss of sensation following the procedure. Post Debridement Measurements: 0.4cm length x 0.3cm width x 0.1cm depth; with an area of 0.12 sq cm and a volume of 0.012 cubic cm; PLAN Wound Orders: Wound #4 Left, Lateral Hip Cleanser Cleanse Wound: - Normal saline or distilled water Topical Treatments Antibiotic/Antimicrobial Ointment/Cream. - Gentamicin Dressings Primary dressing: - Border foam Change Dressing: Scribing Attestation I attest, as the nurse, that I scribed these orders for the physician. Wound #5 Perineum Cleanser Cleanse Wound: - Normal saline or distilled water Topical Treatments Antibiotic/Antimicrobial Ointment/Cream. - Gentamicin Dressings Primary dressing: - Gentamicin then poise pad Scribing Attestation I attest, as the nurse, that I scribed these orders for the physician. Wound #6 Penis Cleanser Cleanse Wound: - Normal saline or distilled water Topical Treatments Antibiotic/Antimicrobial Ointment/Cream. - Gentamicin Dressings Primary dressing: - Gentamicin then poise pad Scribing Attestation I attest, as the nurse, that I scribed these orders for the physician. Additional Orders: Follow-Up Appointments Return Appointment: - - One week. General Notes: Please draft roller picker Bactrim and continue as prescribed I've reviewed the clinician's documentation and agree with the evaluation and plan as written. In addition, the patient's ulcer demonstrates evidence of non-viable devitalized tissue which will continue to benefit from sharp debridement to help promote granulation and expedite healing. Also, I've continued another week of Bactrim and will treat both ulcers with topical gentamicin. We'll also await the results of his CT and feedback from urology. Electronic Signature(s) Signed By: Date: Ricky Castillo MD 06/11/2018 06:43:39 Entered By: Ricky Castillo on 06/10/2018 14:31:14
== END ==
PROVIDERS: PCP Family Medicine; Visit Provider Internal Medicine
DX: G82.20 Paraplegia, unspecified (principal); L89.224 Pressure ulcer of left hip, stage 4; S31.20XD Unspecified open wound of penis, subsequent encounter; B96.29 Other Escherichia coli [E. coli] as the cause of diseases classified elsewhere
CPT/HCPCS: 36415; 72193; 80048; 97597; Q9967

== ENCOUNTER → 2018-06-18 13:38 | Outpatient (CLI) | payer MEDICARE, SELFPAY ==
--- NOTE | 2018-06-18 | OV.WND_ITS ---
Progress Note Details Patient Name: Tommy Skelton Patient Number: [id number] PatientPatientDate: 06/18/2018 Clinician: Jackeline John Clinician Cosigner: Marilin Hernandez Physician / Welder Railcar Mechanic: Ricky Castillo SUBJECTIVE Chief Complaint This information was obtained from the patient Wounds on left hip, suprapubic area and penis. Allergies latex (Severity: Severe, Reaction: rashed and blister.) HPI This information was obtained from the patient 06/18/18. Seen by Dr. Castillo. The patient's been seen by his urologist who's placed him on a one month course of Bactrim due to a reported refractory abscess associated with his prior suprapubic catheter site. He does not report drainage from the left hip pressure ulcer and is applying topical gentamicin to the ulcer beneath the base of the penis. 06/10/18. Seen by Dr. Castillo. The patient does not report significant drainage associated with the left hip pressure ulcer. He's now on Bactrim for the E. coli positive culture taken from the circumferential ulcer at the base of his penis that was caused while wearing a condom catheter. He's paraplegic and had a Renteria catheter placed since his last visit. He also has a CT scheduled for today to evaluate for the persistent drainage from the site of his suprapubic catheter wound. 06/03/18. Seen by Dr. Castillo. The patient does not report significant drainage associated with the left hip pressure ulcer. He does report however significant clear drainage from the suprapubic wound site this morning and complains of a progressive ulcer at the base of his penis along the margin of the condom catheter. Complicating his condition is the fact he's paraplegic and he's has a number of urologic complications including recently having difficulty with his indwelling urinary catheter. He's scheduled to see urology on 06/05 for this issue. 05/28/18. Seen by Dr. Castilol. The patient does not report significant drainage associated with the left hip pressure ulcer and he's offloading as much as possible noting he's wheelchair dependent due to paraplegia. The nurse also states he's applying an oregano spray to the ulcer despite being advised to only dress and treat the ulcer as per our recommendations. He also reports recurrence of some swelling around his suprapubic catheter site however has not contacted his urologist and he states he's hoping to re-establish care with another urologist in [place]. 05/21/18. Seen by Rashid Brenner PA-C. The patient reports stable drainage from his left hip ulcer and he continues on Augmentin for the infection of this ulcer. 05/14/18. Seen by Dr. Castillo. The patient is now on Augmentin for the Staph positive wound culture taken from his chronic left hip pressure ulcer at his last visit. He does not report adverse side effects nor significant drainage from the ulcer and he's offloading as recommended noting his wheelchair dependent due to paraplegia. Staff also report he's applying a topical poultice to the ulcer base despite being advised at his last visit to not do this. 05/08/18. Seen by Dr. Castillo. The patient returns to clinic with a left hip ulcer he states has been present for 2 weeks and may have started as a spider bite and is located over the site of previous pressure ulcers and along a surgical scar. He's paraplegic and wheelchair dependent and uses an offloading cushion on his chair. He does not report significant drainage at the site and has not been on antibiotics. 04/01/18. Seen by Dr. Castillo. The patient does not report pain nor drainage associated with the trauma wound over the base the penis since his visit last week. He has been applying topical gentamicin as recommended as well. 03/24/18. Seen by Dr. Castillo. The patient returns to clinic with what appears to be a trauma wound on the base of his penis that he states occurred when his condom catheter was too placed too tightly. This occurred about a month ago and of note he is a paraplegic and is now using an indwelling catheter. He has seen his urologist who advised to take amoxicillin however he has refused to do that. 10/02/17. Seen by Dr. Castillo. The patient does not report significant drainage associated with the suprapubic nor left lateral scrotal wound. The culture from the last visit of the scrotal wound grew MRSA and he's been applying topical gentamicin as recommended. Of note, he reports last evening that he had some significant swelling and pain of the scrotum and felt a firmness around the left testicle however much this seems to resolved as of today and he does not report any pain although he notes the swelling persists somewhat. He does not report fevers or feeling unwell and is not currently on oral antibiotics. 09/25/17. Seen by Dr. Castillo. The patient continues to report some pain associated with the wound along the left aspect of the scrotum. He does not report any pain or drainage associated with suprapubic wound however since started taking Augmentin for the ESBL wound culture from 2 weeks ago. 09/18/17. Seen by Dr. Castillo. The patient's wound culture grew an Escherichia coli species with significant resistance. He is not currently on oral antibiotics and has been applying topical gentamicin to the suprapubic nonhealing wound. He continues to report pain in the periwound area and notes that urine will often leak around his condom catheter and has possibly contaminated the wound in the past. He does not report fevers or feeling unwell and does not feel the drainage from the wound in increasing. 09/12/17. Seen by Dr. Castillo. The patient is new to our clinic and presents with a suprapubic wound that he states has resulted from dehiscence of a surgical wound from a month ago following a sizable abscess incision and drainage performed at [facility]. He reports some yellow purulent drainage from the wound site and feels that it's getting larger in diameter. He also has some discomfort during dressing changes. He is a paraplegic and utilizes a condom catheter and also states there is a small wound along the proximal margin of his penis feels that's nearly healed. The patient also reports a recent history of c. diff colitis following treatment with antibiotics that resolved with oral vancomycin. Past Medical History This information was obtained from the patient Patient has a medical history of: Type II Diabetes CVA Hypertension Anxiety Paraplegia Spinal cord injury Urinary Tract Infection (re current) Complaints and Symptoms This information was obtained from the patient Patient complains of: General Notes: I have reviewed and concur with the Review of Systems and Past Family Social History documents completed by the clinician, I have reviewed and concur with the Wound Assessment document completed by the clinician Genitourinary (): Urinary Incontinence Integumentary (Hair/Skin/Nails): Open Sore Musculoskeletal: Assistive Devices, Muscle Wasting, Muscle Weakness Neurological: Loss of Protective Sensation Prior Wound History: Drainage, Erythema, Pain Patient denies complaints or symptoms related to: Cardiovascular (Central): Irregular heart beat Constitutional Symptoms (General Health): Chills, Fever Ear/Nose/Mouth/Throat: Hearing Loss / Aid Gastrointestinal (GI): Nausea / Vomiting, Stomach/abdominal pain Hematologic/Lymphatic: Bleeding / Clotting Disorders, Bleeding Tendency Prior Wound History: Bleeding Psychiatric: Memory Loss Respiratory: Oxygen Use, Shortness of Breath OBJECTIVE Constitutional BP elevated; Afebrile; Alert and in no distress. Well developed. Alert. Clean appearing.. Height/Length: 73 in (185.42 cm), Weight: 185 lbs (84.09 kgs), BMI: 24.4, Temperature: 98.9 ?F (37.17 ?C), Pulse: 86 bpm, Respiratory Rate: 16 breaths/min, Blood Pressure: 138/75 mmHg, Pulse Oximetry: 97 %. Ears, Nose, Mouth, and Throat: No clinically significant hearing loss on informal examination. Gastrointestinal (GI): Obese. Nondistended.. Musculoskeletal: Significant left gluteal wasting. Integumentary (Hair, Skin) Refer to appropriate clinician wound documentation for this visit; left hip ulcer healed; linear ulcer beneath base of penis extends to subcut, base covered with slough and minimal pink granulation. Wound #4 Left, Lateral Hip is an acute Stage 3 Pressure Injury Pressure Ulcer and has received an outcome of Healed - no new wound(s). Subsequent wound encounter measurements are 0cm length x 0cm width x 0cm depth, with an area of 0 sq cm and a volume of 0 cubic cm. No tunneling has been noted. No sinus tract has been noted. No undermining has been noted. There was no drainage noted. The patient reports no wound pain due to the wound being insensate. The wound margin is rolled. Wound bed has Yes epithelialization, No eschar, No slough, No granulation. The periwound skin texture is normal. The periwound skin moisture is normal. The periwound skin color is normal. The temperature of the periwound skin is WNL. Periwound skin does not exhibit signs or symptoms of infection. Local Pulse is N/A. Wound #5 Suprapubic is an acute Full Thickness Surgical Wound and has received an outcome of Continued improvement expected post discharge. Subsequent wound encounter measurements are 0.1cm length x 0.1cm width x 0.1cm depth, with an area of 0.01 sq cm and a volume of 0.001 cubic cm. No tunneling has been noted. No sinus tract has been noted. No undermining has been noted. There was no drainage noted. The patient reports a wound pain of level 0/10. The wound margin is attached. Wound bed has Yes epithelialization , No eschar, No slough, No granulation. The periwound skin texture is normal. The periwound skin moisture is normal. The periwound skin color is normal. The temperature of the periwound skin is WNL. Periwound skin does not exhibit signs or symptoms of infection. Local Pulse is N/A. Wound #6 Penis is an acute Full Thickness Trauma Wound and has received a status of Not Healed. Subsequent wound encounter measurements are 0.7cm length x 4.5cm width x 0.2cm depth, with an area of 3.15 sq cm and a volume of 0.63 cubic cm. No tunneling has been noted. No sinus tract has been noted. No undermining has been noted. There is a small amount of serous drainage noted which has no odor. The patient reports a wound pain of level 0/10. The wound margin is attached. Wound bed has Yes epithelialization, No eschar, Yes slough, Yes pink, firm granulation. The periwound skin texture is normal. The periwound skin moisture is normal. The periwound skin color is normal. The temperature of the periwound skin is WNL. Periwound skin presents with s/s of infection. Confirmation Description and Treatment Plan is: Confirmed Local, Systemic Antibiotics Prescribed. Local Pulse is N/A. Neurological: Cranial nerves grossly intact with symmetric function normal by informal observation.. ASSESSMENT Active Problems ICD-10 (Encounter Diagnosis) L89.43 - Pressure ulcer of contiguous site of back, buttock and hip, stage 3 (Encounter Diagnosis) S31.20XD - Unspecified open wound of penis, subsequent encounter (Encounter Diagnosis) T81.31XD - Disruption of external operation (surgical) wound, not elsewhere classified, subsequent encounter (Encounter Diagnosis) L08.9 - Local infection of the skin and subcutaneous tissue, unspecified PLAN Wound Orders: Wound #6 Penis Cleanser Cleanse Wound: - Normal saline or distilled water. Topical Treatments Antibiotic/Antimicrobial Ointment/Cream. - Gentamicin ointment. Dressings Cover and secure with: - InteryDry. Change Dressing: - As needed. Follow-Up Appointments Return Appointment: - - One week. Other information: If you develop fever, chills, increased pain, drainage, redness or swelling please call our office. If after hours, respond to the ER. Should you experience any significant changes in your wound(s) or have any questions regarding your home care instructions please contact the wound center @ [phone]. If after hours, contact your primary care physician or go to the hospital emergency room. Scribing Attestation I attest, as the nurse, that I scribed these orders for the physician. General Notes: Continue Bactrim as prescribed. I've reviewed the clinician's documentation and agree with the evaluation and plan as written. Also, the patient will continue on Bactrim as per his urologist and keep applying topical gentamicin to the ulcer beneath the penis. Electronic Signature(s) Signed By: Date: Ricky Castillo MD 06/19/2018 07:19:13 Entered By: Ricky aCstillo on 06/19/2018 06:54:43
== END ==
PROVIDERS: PCP Family Medicine; Visit Provider Internal Medicine
DX: L89.223 Pressure ulcer of left hip, stage 3 (principal); S31.20XD Unspecified open wound of penis, subsequent encounter; T81.31XD Disruption of external operation (surgical) wound, not elsewhere classified, subsequent encounter; L08.9 Local infection of the skin and subcutaneous tissue, unspecified
CPT/HCPCS: 99213

== ENCOUNTER → 2018-06-25 14:22 | Outpatient (CLI) | payer MEDICARE, SELFPAY ==
--- NOTE | 2018-06-25 | OV.WND_ITS ---
Progress Note Details Patient Name: Tommy Skelton Patient Number: [id number] PatientPatientDate: 06/25/2018 Clinician: Jackeline John Clinician Cosigner: Marilin Hernandez Physician / Beader Tender: Ricky Castillo SUBJECTIVE Chief Complaint This information was obtained from the patient Trauma wound on penis. Allergies latex (Severity: Severe, Reaction: rashed and blister.) HPI This information was obtained from the patient 06/25/18. Seen by Dr. Castillo. The patient does not report significant drainage associated with the chronic ulcer beneath the base of the penis. 06/18/18. Seen by Dr. Castillo. The patient's been seen by his urologist who's placed him on a one month course of Bactrim due to a reported refractory abscess associated with his prior suprapubic catheter site. He does not report drainage from the left hip pressure ulcer and is applying topical gentamicin to the ulcer beneath the base of the penis. 06/10/18. Seen by Dr. Castillo. The patient does not report significant drainage associated with the left hip pressure ulcer. He's now on Bactrim for the E. coli positive culture taken from the circumferential ulcer at the base of his penis that was caused while wearing a condom catheter. He's paraplegic and had a Renteria catheter placed since his last visit. He also has a CT scheduled for today to evaluate for the persistent drainage from the site of his suprapubic catheter wound. 06/03/18. Seen by Dr. Castillo. The patient does not report significant drainage associated with the left hip pressure ulcer. He does report however significant clear drainage from the suprapubic wound site this morning and complains of a progressive ulcer at the base of his penis along the margin of the condom catheter. Complicating his condition is the fact he's paraplegic and he's has a number of urologic complications including recently having difficulty with his indwelling urinary catheter. He's scheduled to see urology on 06/05 for this issue. 05/28/18. Seen by Dr. Castillo. The patient does not report significant drainage associated with the left hip pressure ulcer and he's offloading as much as possible noting he's wheelchair dependent due to paraplegia. The nurse also states he's applying an oregano spray to the ulcer despite being advised to only dress and treat the ulcer as per our recommendations. He also reports recurrence of some swelling around his suprapubic catheter site however has not contacted his urologist and he states he's hoping to re-establish care with another urologist in [place]. 05/21/18. Seen by Rashid Brenner PA-C. The patient reports stable drainage from his left hip ulcer and he continues on Augmentin for the infection of this ulcer. 05/14/18. Seen by Dr. Castillo. The patient is now on Augmentin for the Staph positive wound culture taken from his chronic left hip pressure ulcer at his last visit. He does not report adverse side effects nor significant drainage from the ulcer and he's offloading as recommended noting his wheelchair dependent due to paraplegia. Staff also report he's applying a topical poultice to the ulcer base despite being advised at his last visit to not do this. 05/08/18. Seen by Dr. Castillo. The patient returns to clinic with a left hip ulcer he states has been present for 2 weeks and may have started as a spider bite and is located over the site of previous pressure ulcers and along a surgical scar. He's paraplegic and wheelchair dependent and uses an offloading cushion on his chair. He does not report significant drainage at the site and has not been on antibiotics. 04/01/18. Seen by Dr. Castillo. The patient does not report pain nor drainage associated with the trauma wound over the base the penis since his visit last week. He has been applying topical gentamicin as recommended as well. 03/24/18. Seen by Dr. Castillo. The patient returns to clinic with what appears to be a trauma wound on the base of his penis that he states occurred when his condom catheter was too placed too tightly. This occurred about a month ago and of note he is a paraplegic and is now using an indwelling catheter. He has seen his urologist who advised to take amoxicillin however he has refused to do that. 10/02/17. Seen by Dr. Castillo. The patient does not report significant drainage associated with the suprapubic nor left lateral scrotal wound. The culture from the last visit of the scrotal wound grew MRSA and he's been applying topical gentamicin as recommended. Of note, he reports last evening that he had some significant swelling and pain of the scrotum and felt a firmness around the left testicle however much this seems to resolved as of today and he does not report any pain although he notes the swelling persists somewhat. He does not report fevers or feeling unwell and is not currently on oral antibiotics. 09/25/17. Seen by Dr. Castillo. The patient continues to report some pain associated with the wound along the left aspect of the scrotum. He does not report any pain or drainage associated with suprapubic wound however since started taking Augmentin for the ESBL wound culture from 2 weeks ago. 09/18/17. Seen by Dr. Castillo. The patient's wound culture grew an Escherichia coli species with significant resistance. He is not currently on oral antibiotics and has been applying topical gentamicin to the suprapubic nonhealing wound. He continues to report pain in the periwound area and notes that urine will often leak around his condom catheter and has possibly contaminated the wound in the past. He does not report fevers or feeling unwell and does not feel the drainage from the wound in increasing. 09/12/17. Seen by Dr. Castillo. The patient is new to our clinic and presents with a suprapubic wound that he states has resulted from dehiscence of a surgical wound from a month ago following a sizable abscess incision and drainage performed at [facility]. He reports some yellow purulent drainage from the wound site and feels that it's getting larger in diameter. He also has some discomfort during dressing changes. He is a paraplegic and utilizes a condom catheter and also states there is a small wound along the proximal margin of his penis feels that's nearly healed. The patient also reports a recent history of c. diff colitis following treatment with antibiotics that resolved with oral vancomycin. Past Medical History This information was obtained from the patient Patient has a medical history of: Type II Diabetes CVA Hypertension Anxiety Paraplegia Spinal cord injury Urinary Tract Infection (re current) Complaints and Symptoms This information was obtained from the patient Patient complains of: General Notes: I have reviewed and concur with the Review of Systems and Past Family Social History documents completed by the clinician, I have reviewed and concur with the Wound Assessment document completed by the clinician Genitourinary (): Urinary Incontinence Integumentary (Hair/Skin/Nails): Open Sore Musculoskeletal: Assistive Devices, Muscle Wasting, Muscle Weakness Neurological: Loss of Protective Sensation Prior Wound History: Drainage, Erythema, Pain Patient denies complaints or symptoms related to: Cardiovascular (Central): Irregular heart beat Constitutional Symptoms (General Health): Chills, Fever Ear/Nose/Mouth/Throat: Hearing Loss / Aid Gastrointestinal (GI): Nausea / Vomiting, Stomach/abdominal pain Hematologic/Lymphatic: Bleeding / Clotting Disorders, Bleeding Tendency Prior Wound History: Bleeding Psychiatric: Memory Loss Respiratory: Oxygen Use, Shortness of Breath OBJECTIVE Constitutional Vital signs reviewed and noted. Well developed. Alert. Clean appearing.. Height/ Length: 73 in (185.42 cm), Weight: 185 lbs (84.09 kgs), BMI: 24.4, Temperature: 97.7 ?F (36.5 ?C), Pulse: 90 bpm, Respiratory Rate: 16 breaths/min, Blood Pressure: 130/74 mmHg, Pulse Oximetry: 96 %. Ears, Nose, Mouth, and Throat: No clinically significant hearing loss on informal examination. Integumentary (Hair, Skin) No periwound erythema, warmth, or significant drainage. No periwound rashes appreciated or noted otherwise.. Refer to appropriate clinician wound documentation for this visit; ulcer beneath base of penis approx 50% healed, extends to subcut with minimal slough over center. Wound #6 Penis is an acute Full Thickness Trauma Wound and has received a status of Not Healed. Subsequent wound encounter measurements are 1cm length x 3.5cm width x 0.1cm depth, with an area of 3.5 sq cm and a volume of 0.35 cubic cm. No tunneling has been noted. No sinus tract has been noted. No undermining has been noted. There is a small amount of serous drainage noted which has no odor. The patient reports a wound pain of level 0/10. The wound margin is attached. Wound bed has Yes epithelialization, No eschar, Yes slough, Yes pink, firm granulation. The periwound skin texture is normal. The periwound skin color is normal. The periwound skin exhibited: Moist. The periwound skin did not exhibit: Dry/Scaly, Maceration. The temperature of the periwound skin is WNL. Periwound skin presents with s/s of infection. Confirmation Description and Treatment Plan is: Confirmed Local, Systemic Antibiotics Prescribed. Local Pulse is N/A. Neurological: Cranial nerves grossly intact with symmetric function normal by informal observation.. ASSESSMENT Active Problems ICD-10 (Encounter Diagnosis) S31.20XD - Unspecified open wound of penis, subsequent encounter PLAN Wound Orders: Wound #6 Penis Cleanser Cleanse Wound: - Normal saline or distilled water. Topical Treatments Antibiotic/Antimicrobial Ointment/Cream. - Gentamicin ointment. Dressings Cover and secure with: - Foam cut, tacked in place with hypafix. Change Dressing: - Every other day or as needed if bandage falls off or gets soiled. Follow-Up Appointments Return Appointment: - - One week. Other information: If you develop fever, chills, increased pain, drainage, redness or swelling please call our office. If after hours, respond to the ER. Should you experience any significant changes in your wound(s) or have any questions regarding your home care instructions please contact the wound center @ [phone]. If after hours, contact your primary care physician or go to the hospital emergency room. Scribing Attestation I attest, as the nurse, that I scribed these orders for the physician. General Notes: Continue Bactrim as prescribed by your urologist. I've reviewed the clinician's documentation and agree with the evaluation and plan as written. Also, the goal will be to help facilitate offloading of the ulcer with a foam dressing to continue to help promote granulation and healing. Electronic Signature(s) Signed By: Date: Ricky Castillo MD 06/26/2018 11:31:50 Entered By: Ricky Castillo on 06/25/2018 15:14:17
== END ==
PROVIDERS: PCP Family Medicine; Visit Provider Internal Medicine
DX: S31.20XD Unspecified open wound of penis, subsequent encounter (principal)
CPT/HCPCS: 99213

== ENCOUNTER → 2018-07-09 14:16 | Outpatient (CLI) | payer MEDICARE, SELFPAY ==
--- NOTE | 2018-07-09 | OV.WND_ITS ---
Progress Note Details Patient Name: Tommy Skelton Patient Number: [id number] PatientPatientDate: 07/09/2018 Clinician: Tamela Escalante Clinician Cosigner: Marilin Hernandez Physician / Coping Machine Operator: Ricky Castillo SUBJECTIVE Chief Complaint This information was obtained from the patient Trauma wound on penis. Allergies latex (Severity: Severe, Reaction: rashed and blister.) HPI This information was obtained from the patient 07/09/18. Seen by Dr. Castillo. The patient does not report significant drainage associated with the chronic ulcer beneath the base of the penis. 06/25/18. Seen by Dr. Castillo. The patient does not report significant drainage associated with the chronic ulcer beneath the base of the penis. 06/18/18. Seen by Dr. Castillo. The patient's been seen by his urologist who's placed him on a one month course of Bactrim due to a reported refractory abscess associated with his prior suprapubic catheter site. He does not report drainage from the left hip pressure ulcer and is applying topical gentamicin to the ulcer beneath the base of the penis. 06/10/18. Seen by Dr. Castillo. The patient does not report significant drainage associated with the left hip pressure ulcer. He's now on Bactrim for the E. coli positive culture taken from the circumferential ulcer at the base of his penis that was caused while wearing a condom catheter. He's paraplegic and had a Renteria catheter placed since his last visit. He also has a CT scheduled for today to evaluate for the persistent drainage from the site of his suprapubic catheter wound. 06/03/18. Seen by Dr. Castillo. The patient does not report significant drainage associated with the left hip pressure ulcer. He does report however significant clear drainage from the suprapubic wound site this morning and complains of a progressive ulcer at the base of his penis along the margin of the condom catheter. Complicating his condition is the fact he's paraplegic and he's has a number of urologic complications including recently having difficulty with his indwelling urinary catheter. He's scheduled to see urology on 06/05 for this issue. 05/28/18. Seen by Dr. Castillo. The patient does not report significant drainage associated with the left hip pressure ulcer and he's offloading as much as possible noting he's wheelchair dependent due to paraplegia. The nurse also states he's applying an oregano spray to the ulcer despite being advised to only dress and treat the ulcer as per our recommendations. He also reports recurrence of some swelling around his suprapubic catheter site however has not contacted his urologist and he states he's hoping to re-establish care with another urologist in [place]. 05/21/18. Seen by Rashid Brenner PA-C. The patient reports stable drainage from his left hip ulcer and he continues on Augmentin for the infection of this ulcer. 05/14/18. Seen by Dr. Castillo. The patient is now on Augmentin for the Staph positive wound culture taken from his chronic left hip pressure ulcer at his last visit. He does not report adverse side effects nor significant drainage from the ulcer and he's offloading as recommended noting his wheelchair dependent due to paraplegia. Staff also report he's applying a topical poultice to the ulcer base despite being advised at his last visit to not do this. 05/08/18. Seen by Dr. Castillo. The patient returns to clinic with a left hip ulcer he states has been present for 2 weeks and may have started as a spider bite and is located over the site of previous pressure ulcers and along a surgical scar. He's paraplegic and wheelchair dependent and uses an offloading cushion on his chair. He does not report significant drainage at the site and has not been on antibiotics. 04/01/18. Seen by Dr. Castillo. The patient does not report pain nor drainage associated with the trauma wound over the base the penis since his visit last week. He has been applying topical gentamicin as recommended as well. 03/24/18. Seen by Dr. Castillo. The patient returns to clinic with what appears to be a trauma wound on the base of his penis that he states occurred when his condom catheter was too placed too tightly. This occurred about a month ago and of note he is a paraplegic and is now using an indwelling catheter. He has seen his urologist who advised to take amoxicillin however he has refused to do that. 10/02/17. Seen by Dr. Castillo. The patient does not report significant drainage associated with the suprapubic nor left lateral scrotal wound. The culture from the last visit of the scrotal wound grew MRSA and he's been applying topical gentamicin as recommended. Of note, he reports last evening that he had some significant swelling and pain of the scrotum and felt a firmness around the left testicle however much this seems to resolved as of today and he does not report any pain although he notes the swelling persists somewhat. He does not report fevers or feeling unwell and is not currently on oral antibiotics. 09/25/17. Seen by Dr. Castillo. The patient continues to report some pain associated with the wound along the left aspect of the scrotum. He does not report any pain or drainage associated with suprapubic wound however since started taking Augmentin for the ESBL wound culture from 2 weeks ago. 09/18/17. Seen by Dr. Castillo. The patient's wound culture grew an Escherichia coli species with significant resistance. He is not currently on oral antibiotics and has been applying topical gentamicin to the suprapubic nonhealing wound. He continues to report pain in the periwound area and notes that urine will often leak around his condom catheter and has possibly contaminated the wound in the past. He does not report fevers or feeling unwell and does not feel the drainage from the wound in increasing. 09/12/17. Seen by Dr. Castillo. The patient is new to our clinic and presents with a suprapubic wound that he states has resulted from dehiscence of a surgical wound from a month ago following a sizable abscess incision and drainage performed at [facility]. He reports some yellow purulent drainage from the wound site and feels that it's getting larger in diameter. He also has some discomfort during dressing changes. He is a paraplegic and utilizes a condom catheter and also states there is a small wound along the proximal margin of his penis feels that's nearly healed. The patient also reports a recent history of c. diff colitis following treatment with antibiotics that resolved with oral vancomycin. Past Medical History This information was obtained from the patient Patient has a medical history of: Type II Diabetes CVA Hypertension Anxiety Paraplegia Spinal cord injury Urinary Tract Infection (re current) Complaints and Symptoms This information was obtained from the patient Patient complains of: General Notes: I have reviewed and concur with the Review of Systems and Past Family Social History documents completed by the clinician, I have reviewed and concur with the Wound Assessment document completed by the clinician Genitourinary (): Urinary Incontinence Integumentary (Hair/Skin/Nails): Open Sore Musculoskeletal: Assistive Devices, Muscle Wasting, Muscle Weakness Neurological: Loss of Protective Sensation Prior Wound History: Drainage, Erythema, Pain Patient denies complaints or symptoms related to: Cardiovascular (Central): Irregular heart beat Constitutional Symptoms (General Health): Chills, Fever Ear/Nose/Mouth/Throat: Hearing Loss / Aid Gastrointestinal (GI): Nausea / Vomiting, Stomach/abdominal pain Hematologic/Lymphatic: Bleeding / Clotting Disorders, Bleeding Tendency Prior Wound History: Bleeding Psychiatric: Memory Loss Respiratory: Oxygen Use, Shortness of Breath OBJECTIVE Constitutional Vital signs reviewed and noted. Well developed. Alert. Clean appearing.. Height/ Length: 73 in (185.42 cm), Weight: 185 lbs (84.09 kgs), BMI: 24.4, Temperature: 97.9 ?F ( 36.61 ?C), Pulse: 99 bpm, Respiratory Rate: 16 breaths/min, Blood Pressure: 136/73 mmHg, Pulse Oximetry: 95 %. Ears, Nose, Mouth, and Throat: No clinically significant hearing loss on informal examination. Integumentary (Hair, Skin) No periwound erythema, warmth, or significant drainage. No periwound rashes appreciated or noted otherwise.. Refer to appropriate clinician wound documentation for this visit; ulcer beneath base of penis approx 80% healed, extends to subcut with minimal slough over center. Wound #6 Penis is an acute Full Thickness Trauma Wound and has received a status of Not Healed. Subsequent wound encounter measurements are 0.4cm length x 2cm width x 0.1cm depth, with an area of 0.8 sq cm and a volume of 0.08 cubic cm. No tunneling has been noted. No sinus tract has been noted. No undermining has been noted. There is a small amount of serous drainage noted which has no odor. The patient reports a wound pain of level 0/10. The wound margin is attached. Wound bed has Yes epithelialization, No eschar, Yes slough, Yes pink, firm granulation. The periwound skin texture is normal. The periwound skin color is normal. The periwound skin exhibited: Moist. The periwound skin did not exhibit: Dry/Scaly, Maceration. The temperature of the periwound skin is WNL. Periwound skin does not exhibit signs or symptoms of infection. Local Pulse is N/A. Neurological: Cranial nerves grossly intact with symmetric function normal by informal observation.. ASSESSMENT Active Problems ICD-10 (Encounter Diagnosis) S31.20XD - Unspecified open wound of penis, subsequent encounter PLAN Wound Orders: Wound #6 Penis Cleanser Cleanse Wound: - Normal saline or distilled water. Dressings Cover and secure with: - May continue to use diapers or pressure relieving bandage at home. Change Dressing: - Every other day or as needed if bandage falls off or gets soiled. Follow-Up Appointments Return Appointment: - - 2-3 weeks. Other information: If you develop fever, chills, increased pain, drainage, redness or swelling please call our office. If after hours, respond to the ER. Should you experience any significant changes in your wound(s) or have any questions regarding your home care instructions please contact the wound center @ [phone]. If after hours, contact your primary care physician or go to the hospital emergency room. Scribing Attestation I attest, as the nurse, that I scribed these orders for the physician. I've reviewed the clinician's documentation and agree with the evaluation and plan as written. Electronic Signature(s) Signed By: Date: Ricky Castillo MD 07/10/2018 09:16:50 Entered By: Ricky Castillo on 07/10/2018 08:58:47
== END ==
PROVIDERS: PCP Family Medicine; Visit Provider Internal Medicine
DX: S31.20XD Unspecified open wound of penis, subsequent encounter (principal)
CPT/HCPCS: 99212

== ENCOUNTER → 2018-07-14 14:05 | Outpatient (CLI) | payer MEDICARE, SELFPAY ==
--- NOTE | 2018-07-14 | DI.CT.S_ITS ---
PROCEDURE: CT PELVIS W CON INDICATIONS: INFECTION DUE TO PENILE PROTHESIS TECHNIQUE: After the administration of oral contrast and intravenous contrast, 5 mm thick sections acquired from the iliac crests to the symphysis. 5 mm thick coronal and sagittal reformats were acquired. For radiation dose reduction, the following was used: automated exposure control, adjustment of mA and/or kV according to patient size. COMPARISON: [facility], CT, CT PELVIS W CON, 06/10/2018, 15:21. FINDINGS: Image quality: Excellent. Peritoneum and bowel: Contrast enhanced bowel loops demonstrate normal wall thickness and caliber. No free fluid or air. Genitourinary: Bladder is again decompressed around a Renteria catheter, marked bladder wall thickening present. Penile prosthesis is still present. Diffuse scrotal and penile soft tissue thickening is again noted. There is again a small fluid filled cavity measuring approximately 4 x 12 mm in size on the left side of the urethra.. This fluid collection is smaller in size, especially on coronal imaging. Left peroneal soft tissue thickening is unchanged. Nodes and vessels: No iliac, pelvic, or inguinal adenopathy, the largest node being in the right external iliac chain measuring 11 mm in short diameter, series 2/image 24. This is unchanged in appearance. Iliac vessels demonstrate normal size and enhancement. Bones: No new bony lesions. Chronic irregularity of the left inferior ramus is again noted. Metallic artifacts emanate from both femurs. Miscellaneous: No inguinal hernias. IMPRESSION: 1. Chronic inflammation involving the scrotum, perineum and penis, indwelling Renteria catheter and penile prosthesis again noted. Microabscesses on the left at the perineal scrotal junction appear smaller. Dictated by: Sid Matamoros M.D. on 07/14/2018 at 16:17 Approved by: Sid Matamoros M.D. on 07/14/2018 at 16:32
[2018-07-14 14:56] LABS: Blood Urea Nitrogen 23 mg/dL (9-20); Calcium 10.2 mg/dL (8.4-10.2); Carbon Dioxide 27 mmol/L (22-32); Chloride 96 mmol/L (98-107); Estimated Glomerular Filt Rate > 60.0 mL/min (>60); Glucose 188 mg/dL (80-110); HEMOLYSIS < 15 (0-50); Potassium 4.8 mmol/L (3.4-5.1); Sodium 135 mmol/L (137-145)
== END ==
PROVIDERS: PCP Family Medicine; Visit Provider Specialist
DX: T83.6 Infection and inflammatory reaction due to prosthetic device, implant and graft in genital tract (principal); N49.2 Inflammatory disorders of scrotum
CPT/HCPCS: 36415; 72193; 80048; Q9967

== ENCOUNTER → 2018-09-08 13:03 | Outpatient (CLI) | payer MEDICARE, SELFPAY ==
--- NOTE | 2018-09-08 | DI.CT.S_ITS ---
PROCEDURE: CT PELVIS W CON INDICATIONS: CUTANEOUS ABSCESS OF PERINEUM TECHNIQUE: After the administration of oral contrast and intravenous contrast, 5 mm thick sections acquired from the iliac crests to the symphysis. 5 mm thick coronal and sagittal reformats were acquired. For radiation dose reduction, the following was used: automated exposure control, adjustment of mA and/or kV according to patient size. COMPARISON: [facility], CT, CT PELVIS W CON, 07/14/2018, 15:11. [facility], CT, CT PELVIS W CON, 06/10/2018, 15:21. FINDINGS: Image quality: Excellent. Peritoneum and bowel: Contrast enhanced bowel loops demonstrate normal wall thickness and caliber. No free fluid or air. Genitourinary: There is asymmetric thickening of the bladder wall, greater on the left than the right, over a 10 cm curvilinear length of the left bladder wall. The maximal thickness is 2.4 cm, versus approximately 5 mm on the right, a normal appearance. The thickened tissue involved on the left is mildly hyperenhancing when compared to the normal appearing bladder wall on the right. The appearance is worrisome for representing an underlying malignant mass involving the urothelium. A Renteria catheter extends through the penile urethra into the bladder lumen. What appears to be a component of a right side penile implant is present, without abnormal fluid collection along the borders of this foreign body. A left lower perineum fluid collection has enlarged from the prior study, with an enhancing rim, and previously this structure containing a small calcification at its posterior border of the fluid. This now has an overall measurement of 2.6 x 2.4 cm and previously it was 2.0 cm in maximal dimension. This appears to track to the thickened scrotal wall, and is located at approximately the junction of the base of the penis and scrotum. Nodes and vessels: No iliac, pelvic, or inguinal adenopathy. Iliac vessels demonstrate normal size and enhancement. Bones: No acute suspicious bony lesions, but the area of the left ischial tuberosity appears relatively sclerotic and irregular, with an overlying soft tissue defect that appears to represent a currently healed deep decubitus ulceration extending almost to the osseous margin. Miscellaneous: No inguinal hernias. IMPRESSION: 1. There is an unexpected finding along the left bladder wall of asymmetric wall thickening up to 2.4 cm, versus normal appearance on the right. 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 A Renteria catheter is in place. If clinically desired a retrograde CT cystogram could be performed to confirm diagnosis. 2. There is a remnant of a right-sided penile implant, which is near an area of apparent enlarging abscess but which does not show abnormal inflammation or abnormal fluid collection along its borders. 3. At the junction of the base of the penis and the upper margin of the left hemiscrotum there is an enlarging complex fluid collection that measures up to 2.6 x 2.4 cm and previously it measured smaller. 4. Distortion, chronic, with mild sclerosis involves the left ischial tuberosity or a soft tissue defect appears to extend in a fashion suggestive of old decubitus ulceration without current osteomyelitis or abnormal fluid collection immediately adjacent. Dictated by: Alex Longo M.D. on 09/08/2018 at 15:58 Approved by: Alex Longo M.D. on 09/08/2018 at 16:14
[2018-09-08 15:36] LABS: Blood Urea Nitrogen 16 mg/dL (9-20); Calcium 9.8 mg/dL (8.4-10.2); Carbon Dioxide 22 mmol/L (22-32); Chloride 98 mmol/L (98-107); Estimated Glomerular Filt Rate > 60.0 mL/min (>60); Glucose 185 mg/dL (80-110); HEMOLYSIS < 15 (0-50); Potassium 4.5 mmol/L (3.4-5.1); Sodium 138 mmol/L (137-145)
== END ==
PROVIDERS: PCP Family Medicine; Visit Provider Specialist
DX: L02.215 Cutaneous abscess of perineum (principal); Z96.0 Presence of urogenital implants
CPT/HCPCS: 36415; 72193; 80048; Q9967

== ENCOUNTER → 2018-10-07 14:08 | Outpatient (CLI) | payer MEDICARE, SELFPAY | PROVIDERS: PCP Family Medicine; Visit Provider Family Medicine | DX: L03.115 Cellulitis of right lower limb (principal); E11.621 Type 2 diabetes mellitus with foot ulcer; L97.812 Non-pressure chronic ulcer of other part of right lower leg with fat layer exposed | CPT/HCPCS: 11044; 87070; 87075; 87205; 99214 ==

== ENCOUNTER → 2018-10-14 13:32 | Outpatient (CLI) | payer MEDICARE, SELFPAY ==
--- NOTE | 2018-10-14 | DI.RAD.S_ITS ---
PROCEDURE: XR TOE RT MIN 2V INDICATIONS: DIABETIC FOOT ULCER TECHNIQUE: 3 views of the first toe(s) acquired. COMPARISON: None. FINDINGS: Bones: No fractures. There is subluxation or dislocation at the first interphalangeal joint. Subtle bony erosions at the first metatarsal head. There is osteopenia. There is degenerative joint disease at the first metatarsophalangeal joint and multiple phalangeal joints. Soft tissues: No suspicious soft tissue densities. IMPRESSION: 1. Subtle bony erosion at first metatarsal head concerning for osteomyelitis. 2. Subluxation or dislocation of the great toe at the first interphalangeal joint. 3. Osteopenia. Dictated by: Kristopher Phillips M.D. on 10/14/2018 at 16:05 Approved by: Kristopher Phillips M.D. on 10/14/2018 at 16:15
[2018-10-14 14:06] LABS: Add Manual Diff / Slide Review NO; Basophils Percent Auto 0.5 % (0-2); Eosinophils Percent Auto 2.8 % (2-4); Hematocrit 38.7 % (41-53); Hemoglobin 12.9 g/dL (13.5-17.5); Lymphocytes Percent Auto 26.4 % (25-40); Mean Corpuscular HGB Conc 33.3 % (30-36); Mean Corpuscular Hemoglobin 26.8 PG (26-34); Mean Corpuscular Volume 80.6 fL (80-100); Monocytes Percent Auto 9.7 % (3-14); Neutrophils Absolute Auto 4300 /uL (3000-5900); Neutrophils Percent Auto 60.6 % (50-75); Platelet Count 481 X10^3/uL (150-400); Red Blood Cell Count 4.79 X10^6/uL (4.5-5.9); Red Cell Distribution Width 15.6 % (11.6-14.8); White Blood Cell Count 7.2 X10^3/uL (4.5-11.0)
[2018-10-14 14:20] LABS: Erythrocyte Sedimentation Rate 26 MM/HR (0-15)
[2018-10-14 14:34] LABS: Alanine Aminotransferase 47 IU/L (21-72); Albumin 4.7 g/dL (3.5-5.0); Albumin Globulin Ratio 1.3 (1.0-2.8); Alkaline Phosphatase 114 U/L (38-126); Aspartate Aminotransferase 22 IU/L (17-59); BUN Creatinine Ratio 42.5 (6-22); Bilirubin Total 0.2 mg/dL (0.2-1.3); Blood Urea Nitrogen 17 mg/dL (9-20); C-Reactive Protein Quant 2.7 mg/dL (<1.0); Calcium 9.6 mg/dL (8.4-10.2); Carbon Dioxide 25 mmol/L (22-32); Chloride 96 mmol/L (98-107); Estimated Glomerular Filt Rate > 60.0 mL/min (>60); Globulin 3.5 g/dL (1.7-4.1); Glucose 236 mg/dL (80-110); HEMOLYSIS < 15 (0-50); Potassium 4.3 mmol/L (3.4-5.1); Sodium 137 mmol/L (137-145); Total Protein 8.2 g/dL (6.3-8.2)
[2018-10-14 14:39] LABS: Prealbumin 28.5 mg/dL (17.6-36.0)
[2018-10-14 15:00] LABS: Hemoglobin A1C% w Est Avg Glu 8.8 % (4.0-6.0)
== END ==
PROVIDERS: PCP Family Medicine; Visit Provider Family Medicine
DX: E11.621 Type 2 diabetes mellitus with foot ulcer (principal); S93.131A Subluxation of interphalangeal joint of right great toe, initial encounter; M85.871 Other specified disorders of bone density and structure, right ankle and foot; M19.071 Primary osteoarthritis, right ankle and foot; E11.628 Type 2 diabetes mellitus with other skin complications; L03.115 Cellulitis of right lower limb; L97.515 Non-pressure chronic ulcer of other part of right foot with muscle involvement without evidence of necrosis
CPT/HCPCS: 11043; 36415; 73660; 80053; 83036; 84134; 85025; 85651; 86140

== ENCOUNTER → 2018-10-14 13:51 | Outpatient (CLI) | payer MEDICARE, SELFPAY | PROVIDERS: PCP Family Medicine; Visit Provider Family Medicine | DX: L03.115 Cellulitis of right lower limb (principal); L97.515 Non-pressure chronic ulcer of other part of right foot with muscle involvement without evidence of necrosis; E11.628 Type 2 diabetes mellitus with other skin complications | CPT/HCPCS: 11043 ==

== ENCOUNTER → 2018-10-21 13:38 | Outpatient (CLI) | payer MEDICARE, SELFPAY | PROVIDERS: PCP Family Medicine; Visit Provider Family Medicine | DX: E11.621 Type 2 diabetes mellitus with foot ulcer (principal); L97.512 Non-pressure chronic ulcer of other part of right foot with fat layer exposed; I96 Gangrene, not elsewhere classified; M86.171 Other acute osteomyelitis, right ankle and foot; R79.89 Other specified abnormal findings of blood chemistry; N32.9 Bladder disorder, unspecified; Z91.19 Patient's noncompliance with other medical treatment and regimen | CPT/HCPCS: 11043; 99214 ==

== ENCOUNTER → 2018-10-29 13:32 | Outpatient (CLI) | payer MEDICARE, SELFPAY | PROVIDERS: PCP Family Medicine; Visit Provider Family Medicine | DX: E11.621 Type 2 diabetes mellitus with foot ulcer (principal); L97.812 Non-pressure chronic ulcer of other part of right lower leg with fat layer exposed; M86.171 Other acute osteomyelitis, right ankle and foot | CPT/HCPCS: 11042; 99212; 99213 ==

== ENCOUNTER → 2018-10-29 14:05 | Outpatient (CLI) | payer MEDICARE, SELFPAY ==
[2018-10-29 16:48] LABS: Blood Urea Nitrogen 21 mg/dL (9-20); Calcium 9.8 mg/dL (8.4-10.2); Carbon Dioxide 20 mmol/L (22-32); Chloride 98 mmol/L (98-107); Estimated Glomerular Filt Rate > 60.0 mL/min (>60); Glucose 288 mg/dL (80-110); HEMOLYSIS < 15 (0-50); Sodium 136 mmol/L (137-145)
== END ==
PROVIDERS: PCP Family Medicine; Visit Provider Family Medicine
DX: E11.621 Type 2 diabetes mellitus with foot ulcer (principal); L03.115 Cellulitis of right lower limb; L97.812 Non-pressure chronic ulcer of other part of right lower leg with fat layer exposed
CPT/HCPCS: 36415; 80048

== ENCOUNTER → 2018-11-04 15:16 | Outpatient (CLI) | payer MEDICARE, SELFPAY | PROVIDERS: PCP Family Medicine; Visit Provider Family Medicine | DX: E11.621 Type 2 diabetes mellitus with foot ulcer (principal); Z53.9 Procedure and treatment not carried out, unspecified reason ==

== ENCOUNTER → 2018-11-05 13:01 | Outpatient (CLI) | payer MEDICARE, SELFPAY | PROVIDERS: PCP Family Medicine; Visit Provider Family Medicine | DX: L97.511 Non-pressure chronic ulcer of other part of right foot limited to breakdown of skin (principal); E11.628 Type 2 diabetes mellitus with other skin complications; M86.171 Other acute osteomyelitis, right ankle and foot; Z91.19 Patient's noncompliance with other medical treatment and regimen | CPT/HCPCS: 11043 ==

== ENCOUNTER → 2018-11-12 13:01 | Outpatient (CLI) | payer MEDICARE, SELFPAY | PROVIDERS: PCP Family Medicine; Visit Provider Family Medicine | DX: E11.621 Type 2 diabetes mellitus with foot ulcer (principal); L97.513 Non-pressure chronic ulcer of other part of right foot with necrosis of muscle; M86.171 Other acute osteomyelitis, right ankle and foot; D47.3 Essential (hemorrhagic) thrombocythemia | CPT/HCPCS: 99212; 99213 ==

== ENCOUNTER → 2018-11-12 14:13 | Outpatient (CLI) | payer MEDICARE, SELFPAY ==
[2018-11-12 15:47] LABS: Blood Urea Nitrogen 22 mg/dL (9-20); Calcium 9.8 mg/dL (8.4-10.2); Carbon Dioxide 21 mmol/L (22-32); Chloride 99 mmol/L (98-107); Estimated Glomerular Filt Rate > 60.0 mL/min (>60); Glucose 328 mg/dL (80-110); HEMOLYSIS < 15 (0-50); Potassium 4.6 mmol/L (3.4-5.1); Sodium 138 mmol/L (137-145)
== END ==
PROVIDERS: PCP Family Medicine; Visit Provider Family Medicine
DX: E11.621 Type 2 diabetes mellitus with foot ulcer (principal)
CPT/HCPCS: 36415; 80048

== ENCOUNTER → 2018-11-19 13:24 | Outpatient (CLI) | payer MEDICARE, SELFPAY ==
--- OUTSIDE RECORDS SUMMARY | 2018-12-03 14:46 | XMS_ITS | Referral Summary ---
:1955 Author Organization [facility] Address [address] [place] [id number] Care Team Providers Name Role Phone Vira Henry DO Primary Care Provider Reason for Referral Evaluate and Treat (Routine) Status Reason Specialty Diagnoses / Referred By Referred To Procedures Contact Contact Authorized Wound Care Diagnoses Foot lesion Vira Henry DO [facility] [address] [place] [phone] Phone: Reason for Visit Reason Comments Referral Encounter Details Date Type Department Care Team Description 09/15/2018 Nurse Triage [facility] Vira Henry DO Foot lesion (Primary Clinics [facility] [address] [place]) Medicine [facility] [address] [place] [phone] Allergies Active Allergy Reactions Severity Noted Date Comments Latex 08/28/2017 as of this encounter Medications Prescription Sig. Disp. Refills Start End Date Status Date catheter (CARMONA Use once nightly Active CATHETER) 16 Fr misc as needed 7 WHEELCHAIR MISC Wheelchair Active 6 catheter (GENTLECATH) 12 Use to self cath Active Fr misc 4-6 times daily as 7 needed. HYDROcodone-acetaminophe 0 Active n (LORCET PLUS) 10-325 7 mg insulin syringe-needle use to inject Active U-100 0.5 mL 29 gauge x insulin per 7 12/03 syringe protocol methenamine (HIPREX) 1 11 Active gram tablet 7 bacitracin apply bid to 1 Tube 0 Active zinc-polymyxin B affected area 7 500-10,000 unit/gram ointment hydrOXYzine (VISTARIL) TAKE 3 CAPSULES BY 90 capsule 11 Active 50 mg capsule MOUTH BEFORE 7 BEDTIME. LANTUS U-100 INSULIN 100 INJECT 40 UNITS 20 mL 11 Active unit/mL SUBCUTANEOUSLY 8 injectionIndications: EVERY NIGHT Type 2 diabetes mellitus INCREASE BY 2 with complication, with UNITS UNTIL long-term current use of FASTING IS LESS insulin (CMS/HCC) THAN 130 oxybutynin XL Take 1 tablet (5 30 tablet 6 Active (DITROPAN-XL) 5 mg 24 hr mg total) by mouth 8 tablet daily as needed (bladder spasms). REGULAR INSULIN (HumuLIN Inject 1-4 times 10 mL 04/03/20 Active R,NovoLIN R) 100 unit/mL per day as 8 19 injectionIndications: directed. Per Type 2 diabetes mellitus sliding scale. with complication, without long-term current use of insulin (CMS/HCC) LORazepam (ATIVAN) 1 mg Take 0.5 tablets 30 tablet 5 Active tabletIndications: (0.5 mg total) by 8 Anxiety mouth 2 (two) times a day as needed for anxiety for up to 10 days. amLODIPine (NORVASC) 10 Take 1 tablet (10 90 tablet 3 09/12/20 Active mg tabletIndications: mg total) by mouth 8 19 Hypertension, daily unspecified type lisinopril Take 1 tablet (40 90 tablet 3 Active (PRINIVIL,ZESTRIL) 40 mg mg total) by mouth 8 tabletIndications: daily Hypertension, unspecified type hydroCHLOROthiazide Take 1 tablet (50 90 tablet 3 Active (HYDRODIURIL) 50 mg mg total) by mouth 8 tabletIndications: daily Hypertension, unspecified type metFORMIN (GLUCOPHAGE) Take 1 tablet 180 tablet 3 Active 1,000 mg tablet (1,000 mg total) 8 by mouth 2 (two) times a day with meals as of this encounter Active Problems Problem Noted Date Urinary incontinence 03/17/2018 History of drainage of abscess 03/17/2018 History of UTI 03/17/2018 History of cellulitis 03/17/2018 Redundant foreskin 03/17/2018 Anxiety 11/12/2017 Scrotal abscess 09/05/2017 UTI due to extended-spectrum beta lactamase (ESBL) producing Escherichia 08/02 coli Overview: Sens include augmentin, imipenem, nitrofurantoin, pip/tazo, ertapenem Essential hypertension 06/27/2016 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, bilateral 06/27/2016 Type 2 diabetes mellitus with complication, without long-term current use of insulin [place] Wounds, multiple 12/02/2002 Overview: over both hip trochanter and left issum flaps Neurogenic bladder Social History Tobacco Use Types Packs/Day Years Used Date Former Smoker Cigarettes Quit: 12/02/2008 Smokeless Tobacco: Never Used Alcohol Use Drinks/Week oz/Week Comments No Sex Assigned at Date Recorded Not on file as of this encounter Plan of Treatment Upcoming Encounters Date Type Specialty Care Team Description 09/17/2018 Office Visit Family Medicine Vira Henry DO [address] [place] [address] Scheduled Referrals Name Priority Associated Diagnoses Order Schedule XTRNL Referral to Wound Care Routine Foot lesion Ordered: 09/15/2018 as of this encounter Visit Diagnoses Diagnosis Foot lesion - Primary Unspecified disorder of skin and subcutaneous tissue Insurance Payer Benefit Plan / Group Subscriber ID Type Phone Address MEDICARE MEDICARE PART A AND B xxxxxxxxxx as of this encounter
== END ==
PROVIDERS: PCP Family Medicine; Visit Provider Family Medicine
DX: E11.621 Type 2 diabetes mellitus with foot ulcer (principal); L97.515 Non-pressure chronic ulcer of other part of right foot with muscle involvement without evidence of necrosis; M86.171 Other acute osteomyelitis, right ankle and foot; Z91.19 Patient's noncompliance with other medical treatment and regimen; G82.20 Paraplegia, unspecified
CPT/HCPCS: 11042

== ENCOUNTER → 2018-11-26 15:28 | Outpatient (CLI) | payer MEDICARE, SELFPAY ==
--- NOTE | 2018-11-26 | DI.NM.S_ITS ---
PROCEDURE: NM BONE 3 PHASE RADIOPHARMACEUTICAL: 19.4 mCi Tc-99m MDP IV. INDICATIONS: Type 2 diabetes mellitus with foot ulcer TECHNIQUE: Multiple bone scintigrams were obtained after intravenous injection of Tc-99m MDP, including flow, blood pool, and delayed images centered to the region of interest. COMPARISON: [facility], CR, XR TOE RT MIN 2V, 10/14/2018, 14:58. FINDINGS: There is increased activity on flow, blood pool and delayed images images at the base of the first toe/first metatarsal head, suspicious for osteomyelitis. This finding correlates with subtle bony erosion involving the first metatarsal head. Foci of increased uptake are also seen at the left first interphalangeal joint and the right fifth tarsometatarsal joint, consistent with degenerative/arthritic changes. IMPRESSION: 1. Suspect osteomyelitis in the area of the first metatarsophalangeal joint or the first metatarsal head. A differential diagnosis is inflammatory arthritis. 2. Degenerative/arthritic changes as noted. Dictated by: Kristopher Phillips M.D. on 11/27/2018 at 15:44 Transcribed by: SOURAV on 11/27/2018 at 15:52 Approved by: Kristopher Phillips M.D. on 11/27/2018 at 16:44
== END ==
PROVIDERS: PCP Family Medicine; Visit Provider Family Medicine
DX: E11.621 Type 2 diabetes mellitus with foot ulcer (principal); M19.072 Primary osteoarthritis, left ankle and foot; M19.071 Primary osteoarthritis, right ankle and foot
CPT/HCPCS: 78315; A9503

== ENCOUNTER → 2018-12-05 13:32 | Outpatient (CLI) | payer OTHER, SELFPAY | PROVIDERS: PCP Family Medicine; Visit Provider Family Medicine | DX: E11.621 Type 2 diabetes mellitus with foot ulcer (principal); L97.513 Non-pressure chronic ulcer of other part of right foot with necrosis of muscle; M86.171 Other acute osteomyelitis, right ankle and foot; Z91.19 Patient's noncompliance with other medical treatment and regimen | CPT/HCPCS: 99213 ==

== ENCOUNTER → 2021-02-22 15:08 | Outpatient (ROUT) | payer OTHER, SELFPAY ==
[2021-02-22 15:21] LABS: Add Manual Diff / Slide Review NO; Basophils Absolute Auto 100 /uL (0-100); Basophils Percent Auto 0.6 % (0-2); Eosinophils Absolute Auto 300 /uL (0-450); Hematocrit 39.4 % (41-53); Hemoglobin 12.9 g/dL (13.5-17.5); Lymphocytes Absolute Auto 1600 /uL (1100-4500); Lymphocytes Percent Auto 17.4 % (25-40); Mean Corpuscular HGB Conc 32.7 % (30-36); Mean Corpuscular Hemoglobin 26.6 PG (26-34); Mean Corpuscular Volume 81.3 fL (80-100); Monocytes Absolute Auto 800 /uL (0-900); Monocytes Percent Auto 8.4 % (3-14); Neutrophils Absolute Auto 6300 /uL (1500-7000); Neutrophils Percent Auto 70.6 % (50-75); Platelet Count 553 X10^3/uL (150-400); Red Blood Cell Count 4.85 X10^6/uL (4.5-5.9); Red Cell Distribution Width 16.5 % (11.6-14.8); White Blood Cell Count 8.9 X10^3/uL (4.5-11.0)
[2021-02-22 18:18] LABS: C-Reactive Protein Quant 5.4 mg/dL (<1.0)
== END ==
PROVIDERS: PCP Family Medicine; Visit Provider Family Medicine Sports Medicine
DX: L89.310 Pressure ulcer of right buttock, unstageable (principal); L89.320 Pressure ulcer of left buttock, unstageable; E11.9 Type 2 diabetes mellitus without complications; M81.0 Age-related osteoporosis without current pathological fracture
CPT/HCPCS: 85025; 86140

== ENCOUNTER → 2021-06-27 13:34 | Outpatient (ROUT) | payer OTHER, SELFPAY | PROVIDERS: Visit Provider Internal Medicine Rheumatology | DX: L08.9 Local infection of the skin and subcutaneous tissue, unspecified (principal) | CPT/HCPCS: 87070; 87075; 87077; 87147; 87186; 87205 ==

== ENCOUNTER → 2021-07-31 15:36 | Outpatient (ROUT) | payer OTHER, SELFPAY | PROVIDERS: Visit Provider Internal Medicine Rheumatology | DX: L08.9 Local infection of the skin and subcutaneous tissue, unspecified (principal) | CPT/HCPCS: 87070; 87075; 87077; 87147; 87186; 87205 ==

== ENCOUNTER → 2021-08-08 15:07 | Outpatient (CLI) | payer OTHER, SELFPAY ==
--- NOTE | 2021-08-08 | DI.RAD.S_ITS ---
PROCEDURE: XR ANKLE LT 2V INDICATIONS: Wound TECHNIQUE: 2 views of the ankle were acquired. COMPARISON: None. FINDINGS: Bones: Diffuse osteopenia. No obvious or displaced fractures however severely limited study sensitivity due to advanced arthritic changes and diffuse decreased bone mineralization. No definite focal osseous destruction is seen. Severe hindfoot and midfoot osteoarthritis Soft tissues: Diffuse muscle atrophy. Otherwise subcutaneous soft tissues grossly unremarkable. IMPRESSION: No focal osseous destruction to suggest advanced osteomyelitis. If there is persistent clinical concern, continued short interval radiographic followup or contrast enhanced MRI could be performed to assess for early infection. Severely decreased study sensitivity due to decreased bone mineralization and arthritis. Dictated by: Vj Nevarez M.D. on 08/08/2021 at 16:31 Approved by: Vj Nevarez M.D. on 08/08/2021 at 16:33
--- NOTE | 2021-08-08 | DI.RAD.S_ITS ---
PROCEDURE: XR KNEE LT 1TO2V INDICATIONS: Wound Infection TECHNIQUE: 2 views of the knee were acquired. COMPARISON: None. FINDINGS: Bones: Partially visualized distal femoral fixation is present. There is diffuse osteopenia present. Ill-defined lucency without displacement is noted at the proximal tibia. Soft tissues: No joint effusion. No suspicious soft tissue calcifications. IMPRESSION: Osteopenia with ill-defined lucency at the proximal tibia suggestive of fracture. It is noted that this is suboptimal positioning and could be artifactual or related to infection. Recommend correlation point tenderness and repeat view/CT as indicated. Dictated by: Elvira Ibarra M.D. on 08/08/2021 at 18:01 Approved by: Elvira Ibarra M.D. on 08/08/2021 at 18:03
[2021-08-08 17:15] LABS: Add Manual Diff / Slide Review NO; Basophils Absolute Auto 100 /uL (0-100); Basophils Percent Auto 0.8 % (0-2); Eosinophils Absolute Auto 200 /uL (0-450); Eosinophils Percent Auto 2.7 % (2-4); Hematocrit 39.1 % (41-53); Lymphocytes Absolute Auto 1300 /uL (1100-4500); Lymphocytes Percent Auto 21.8 % (25-40); Mean Corpuscular HGB Conc 33.2 % (30-36); Mean Corpuscular Hemoglobin 26.9 PG (26-34); Mean Corpuscular Volume 80.8 fL (80-100); Monocytes Absolute Auto 800 /uL (0-900); Neutrophils Absolute Auto 3700 /uL (1500-7000); Neutrophils Percent Auto 61.7 % (50-75); Platelet Count 419 X10^3/uL (150-400); Red Blood Cell Count 4.84 X10^6/uL (4.5-5.9); Red Cell Distribution Width 14.7 % (11.6-14.8)
[2021-08-08 17:40] LABS: Alanine Aminotransferase 20 IU/L (<50); Albumin 4.6 g/dL (3.5-5.0); Albumin Globulin Ratio 1.2 (1.0-2.8); Alkaline Phosphatase 205 U/L (38-126); Aspartate Aminotransferase 24 IU/L (17-59); BUN Creatinine Ratio 44.4 (6-22); Bilirubin Total 0.3 mg/dL (0.2-1.3); Blood Urea Nitrogen 20 mg/dL (9-20); C-Reactive Protein Quant 3.2 mg/dL (<1.0); Calcium 9.9 mg/dL (8.4-10.2); Carbon Dioxide 26 mmol/L (22-32); Chloride 97 mmol/L (98-107); Estimated Glomerular Filt Rate > 60.0 mL/min (>60); Globulin 3.7 g/dL (1.7-4.1); Glucose 250 mg/dL (80-110); HEMOLYSIS < 15 (0-50); Potassium 4.4 mmol/L (3.4-5.1); Sodium 133 mmol/L (137-145); Total Protein 8.3 g/dL (6.3-8.2)
== END ==
PROVIDERS: PCP Family Medicine Sports Medicine; Referring Provider Internal Medicine Infectious Disease; Visit Provider Internal Medicine Infectious Disease
DX: T14.8XXA Other injury of unspecified body region, initial encounter (principal); L08.9 Local infection of the skin and subcutaneous tissue, unspecified; M86.262 Subacute osteomyelitis, left tibia and fibula; M85.862 Other specified disorders of bone density and structure, left lower leg
CPT/HCPCS: 36415; 73560; 73600; 80053; 85025; 86140; 87040

== ENCOUNTER 2022-04-22 13:29 | Emergency (ER) | payer OTHER, SELFPAY ==
[2022-04-22 13:33] VITALS: BP 141/87; PULSE 127; PULSE 128; RESP 16; TEMP 36.9; O2SAT 96; O2SAT 97; BMI 25.7
--- NOTE | 2022-04-22 14:01 | DI.RAD.S_ITS ---
PROCEDURE: XR TIBIA FIBULA RT 2V INDICATIONS: fall out wheelchair TECHNIQUE: 2 views of the tibia and fibula were acquired. COMPARISON: None. FINDINGS: Bones: Generalized decrease in osseous mineralization noted. Oblique spiral fracture through the mid tibial diaphysis with medial angulation of the distal fracture fragment noted. Additional nondisplaced oblique fracture through the distal fibula. Distal femoral orthopedic hardware, partially imaged. Soft tissues: No suspicious soft tissue calcifications or masses. Diffuse fatty atrophy of the musculature IMPRESSION: Osteopenic spiral oblique tibial fracture with angulation. Nondisplaced distal fibular fracture Approved by: George Faria M.D. on 04/22/2022 at 13:21
--- NOTE | 2022-04-22 14:18 | ED_ITS ---
HPI - Extremity Injury (Lower) General Chief Complaint: Extremity Injury, Lower Stated Complaint: Fall, right lower leg fracture Time Seen by Provider: 04/22/22 14:02 History of Present Illness HPI Narrative: Patient is a 66-year-old male who is a paraplegic who fell out of his wheelchair today. He felt some crunching in his right tib fib. No obvious bony deformity. He has minimal feeling. He did not hit his head or lose consciousness. He has no neck pain. He said he was out in his garden in his chair when he hit a rock and fell out Related Data Home Medications Medication Instructions Recorded Confirmed amlodipine 10 mg tablet 10 mg PO QDAY #0 08/14/17 12/08/20 hydrochlorothiazide 50 mg tablet 50 mg PO QDAY #0 08/14/17 12/08/20 lisinopril 40 mg tablet 40 mg PO QDAY #0 08/14/17 12/08/20 metformin 1,000 mg tablet 1,000 mg PO BIDCC #0 08/14/17 12/08/20 Previous Rx's Medication Instructions Recorded hydrocodone 5 mg-acetaminophen 325 1 tab PO Q6H PRN #10 tab 04/22/22 mg tablet Allergies Allergy/AdvReac Type Severity Reaction Status Date / Time No Known Allergies Allergy Uncoded 04/22/22 13:45 Review of Systems Review of Systems Narrative: GENERAL: Denies chills,fever HEENT: Denies throat pain RESPIRATORY: Denies dyspnea, cough, wheezing CARDIOVASCULAR: Denies chest pain, palpitations GASTROINTESTINAL: Denies nausea, vomiting MUSCULOSKELETAL: See HPI SKIN: No rash, no laceration, no pruritus NEUROLOGIC: Denies weakness, dizziness, headache, numbness 8 point review of systems is negative except for those stated above and HPI Exam Initial Vital Signs Initial Vital Signs: Vital Signs Temperature 98.5 F 04/22/22 13:33 Pulse Rate 128 H 04/22/22 13:33 Respiratory Rate 16 04/22/22 13:33 Blood Pressure 141/87 H 04/22/22 13:33 Pulse Oximetry 97 04/22/22 13:33 GENERAL: Alert 66-year-old CARDIOVASCULAR: peripheral pulses in tact, cap refill <2 sec RESPIRATORY: No respiratory distress, speaks in full sentences without difficulty EXTREMITIES: Normal range of motion, no clubbing or edema. Neurovascularly intact Right leg significant muscle atrophy. Some bony crepitance noted mid shaft in the tibia. Distal pedal pulses patent blood present. NEUROLOGICAL: At baseline SKIN: Warm, dry, no petechiae, no rashes or lesions. Procedures Orthopedic Splinting/Casting Injury #1: Side: right Lower Extremity Injury Location: lower leg Lower Extremity Immobilizer: posterior splint Post splinting neuro exam: intact Post splinting vascular exam: intact Placed by: Provider Course Orders Ordered: ED Orders 04/22/22 14:01 XR tibia fibula RT 2V Stat 04/22/22 15:51 [place] [facility] [place] [facility] Entry Specialist Stat 04/22/22 16:18 Consult to [facility] [place] [facility] Entry Specialist Stat Discontinued Medications Morphine Sulfate (Morphine 4 Mg/Ml Inj) 4 mg IV NOW ONE Stop: 04/22/22 14:25 Last Admin: 04/22/22 14:27 Dose: 4 mg Documented by: LIZBETH Vital Signs Vital signs: Vital Signs - 8 hr 04/22/22 13:33 04/22/22 16:11 04/22/22 16:13 Temperature 98.5 F Pulse Rate 127 H 121 H 118 H Respiratory Rate 16 Blood Pressure 141/87 H 120/69 Pulse Oximetry 96 93 95 MDM - Extremity Injury (Lower) Imaging Data Extremity x-ray #1: Radiologist's Impression: XRay Report Signed Patient: Tommy Skelton MR#: [id number] : 1955 Acct:[id number] Age/Sex: 66 / M Date of Service: 04/22/22 Loc: ED Accession Number: [id number] ?? Procedure: XR tibia fibula RT 2V Ordering Provider: Meggan Ivy D.O. PROCEDURE:? XR TIBIA FIBULA RT 2V ? INDICATIONS:? fall out wheelchair ? TECHNIQUE:? 2 views of the tibia and fibula were acquired.? ? COMPARISON:? None. ? FINDINGS:? ? Bones:? Generalized decrease in osseous mineralization noted.? Oblique spiral fracture through the mid tibial diaphysis with medial angulation of the distal fracture fragment noted.? Additional nondisplaced oblique fracture through the distal fibula.? Distal femoral orthopedic hardware, partially imaged. ? Soft tissues:? No suspicious soft tissue calcifications or masses.? Diffuse fatty atrophy of the musculature ? IMPRESSION:? ? Osteopenic spiral oblique tibial fracture with angulation. ? Nondisplaced distal fibular fracture ? ? ? Approved by: George Faria M.D. on 04/22/2022 at 13:21? MDM Narrative Medical decision making narrative: The patient has extreme muscle atrophy and bilateral lower extremities. Dr. Odonnell has reviewed x-ray and patient's status. Recommend posterior splint of of the knee and outpatient follow-up. Patient had multiple questions wanted to use a splint of his on which would not have been long enough. He finally was agreeable to the splint that was recommended by the orthopedist. He has nonhealing wounds on his left leg. He is asking for home care, he may need to have his skin looked at actually on the right leg as well to make sure he does not develop any sores or wounds. He not be able to tell if his there is something. According to records he has previously been on long-term hydrocodone. With his last prescription filled was 02/25/2022 by his primary care provider. They are looking for new primary care provider. I have put in a social work consult to help with home health care. Discharge Plan Departure Patient Disposition: Home Clinical Impression: Fracture, tibia and fibula Qualifiers: Encounter type: initial encounter Fracture type: closed Laterality: right Qualified Code(s): S82.201A - Unspecified fracture of shaft of right tibia, initial encounter for closed fracture Instructions: DI for Fracture Activity Restrictions/Additional Instructions: *You have been diagnosed with tibial shaft fracture and distal fibular fracture *What to do: You need to keep splint on at all times until evaluation by Orthopedics. Bathe with it on. Ice 20-30 minutes at a time. Especially in the 1st 3 days. *Continue to take medications as directed [place] 1 tablet every 6 hours if needed for severe pain *Follow up with your primary care provider in 2-3 days or call [phone] Call orthopedics tomorrow to schedule appointment He will also need home health care. Social work number (Suzette) [phone] or [phone] *Return to ER if you should have significant swelling or pain, wounds or any new, worsening or concerning symptoms CONTROLLED SUBSTANCE DISCHARGE (Narcotoic/benzodiazepine/Flexeril/Phenergan) 1. You have been prescribed narcotic medications, it does have acetaminophen/Tylenol/paracetamol in it, DO NOT TAKE MORE THAN 4,00mg in 24 hours of Tylenol. TRAMADOL DOES NOT CONTAIN TYLENOL 2. Please understand that we cannot provide further refills of narcotics, benzodiazepines or controlled substances through the ED and her pain management will need to be through your provider. 3. While on these medications you cannot drive or operate heavy machinery. 4. You cannot sign legal documents or perform any duties such as this. 5. As long as you're taking opiate pain medications he should also be taking a stool softener such as Colace, Dulcolax, MiraLAX or prune juice, to help avoid constipation. Prescriptions: New hydrocodone-acetaminophen 5-325 mg tablet 1 tab PO Q6H PRN (Reason: pain) Qty: 10 0RF No Action metformin 1,000 MG tablet 1,000 mg PO BIDCC Qty: 0 0RF hydrochlorothiazide 50 MG tablet 50 mg PO QDAY Qty: 0 0RF amlodipine 10 MG tablet 10 mg PO QDAY Qty: 0 0RF lisinopril 40 MG tablet 40 mg PO QDAY Qty: 0 0RF Referrals: [facility] [Provider Group] Colby Banda MD [Primary Care Provider] -
[2022-04-22] MEDS: MORPHINE 4 MG/ML INJ IV (14:27)
[2022-04-22 16:11] VITALS: PULSE 121; O2SAT 93
[2022-04-22 16:13] VITALS: BP 120/69; PULSE 118; O2SAT 95
[2022-04-22] MEDS: HYDROMORPHONE 0.5 MG INJ (16:17)
--- NOTE | 2022-04-23 16:49 | PC.NURSE ---
patient called to speak with Suzette BOWLES. Took message and Suzette notified to call patient back
--- NOTE | 2022-04-24 14:15 | CM.SWNOTE ---
HEAD END DESIZING MACHINE OPERATOR f/u Note HEAD END DESIZING MACHINE OPERATOR is notified by ORLANDO Fernandes about ED HEAD END DESIZING MACHINE OPERATOR f/u consult for patient per request from ED provider Dr. Ivy for referral for HH. HEAD END DESIZING MACHINE OPERATOR calls patient on 04/23/22 and discusses that HEAD END DESIZING MACHINE OPERATOR will seek out HH referral. Patient endorses he is currently in need of wound care and when given HH options, patient endorses preference for [facility]. Patient states that he requesting a PCP in [place] as well. HEAD END DESIZING MACHINE OPERATOR encourages patient to f/u with ED d/c instructions and seek out ortho f/u. ED provider Dr. Bearden signs F2F form on Dr. Ivy's behalf. On 04/24/22: HEAD END DESIZING MACHINE OPERATOR calls [facility] and faxes referral to set up RN, HH aide and HEAD END DESIZING MACHINE OPERATOR for patient. [facility] reports that they cannot provide HEAD END DESIZING MACHINE OPERATOR in patient's residential area and can call patient to set up services for 04/30/22 at the latest. HEAD END DESIZING MACHINE OPERATOR calls [facility] to schedule PCP appt for patient. Patient is scheduled for ED f/u appt with Dr. Sanders at 4pm on 05/04/22. HEAD END DESIZING MACHINE OPERATOR calls patient and speaks with patient's sister as well and reviews the following. Patient endorses that he would like appt to be a telehealth appt due to his current bedridden status and unable to get to appt in person. Sister states she plans to be patient's advocate. HEAD END DESIZING MACHINE OPERATOR calls [facility] and is informed that patient needs to be present in person for first appt. HEAD END DESIZING MACHINE OPERATOR calls patient and informs him of this. HEAD END DESIZING MACHINE OPERATOR discusses Non emergent transport and patient discusses issues with them in the past. Plan: Patient to start services with [facility] and patient to f/u with Dr. Sanders for ED f/u appt on 05/04/22. JELENA Cortez
== END 2022-04-22 16:41 | disposition home or self-care (01) ==
PROVIDERS: Emergency Provider Emergency Medicine; PCP Family Medicine Sports Medicine
DX: S82.301A Unspecified fracture of lower end of right tibia, initial encounter for closed fracture (principal); W05.0XXA Fall from non-moving wheelchair, initial encounter
CPT/HCPCS: 29505; 73590; 96374; 96375; 99284; J1170; J2270

== ENCOUNTER → 2022-07-02 14:04 | Outpatient (ROUT) | payer OTHER, SELFPAY ==
[2022-07-02 14:13] LABS: Add Manual Diff / Slide Review NO; Basophils Absolute Auto 100 /uL (0-100); Basophils Percent Auto 0.5 % (0-2); Eosinophils Absolute Auto 200 /uL (0-450); Eosinophils Percent Auto 1.9 % (2-4); Hematocrit 38.1 % (41-53); Hemoglobin 12.8 g/dL (13.5-17.5); Lymphocytes Absolute Auto 1300 /uL (1100-4500); Lymphocytes Percent Auto 11.1 % (25-40); Mean Corpuscular HGB Conc 33.5 % (30-36); Mean Corpuscular Hemoglobin 26.1 PG (26-34); Mean Corpuscular Volume 77.7 fL (80-100); Monocytes Absolute Auto 1000 /uL (0-900); Monocytes Percent Auto 8.2 % (3-14); Neutrophils Absolute Auto 9400 /uL (1500-7000); Neutrophils Percent Auto 78.3 % (50-75); Platelet Count 613 X10^3/uL (150-400); Red Cell Distribution Width 15.7 % (11.6-14.8); White Blood Cell Count 11.9 X10^3/uL (4.5-11.0)
[2022-07-02 14:38] LABS: Alanine Aminotransferase 14 IU/L (<50); Albumin 4.1 g/dL (3.5-5.0); Albumin Globulin Ratio 1.1 (1.0-2.8); Alkaline Phosphatase 137 U/L (38-126); Aspartate Aminotransferase 17 IU/L (17-59); BUN Creatinine Ratio 56.8 (6-22); Bilirubin Total 0.3 mg/dL (0.2-1.3); Blood Urea Nitrogen 21 mg/dL (9-20); Calcium 9.4 mg/dL (8.4-10.2); Carbon Dioxide 28 mmol/L (22-32); Chloride 93 mmol/L (98-107); Estimated Glomerular Filt Rate > 60 mL/min (>60); Globulin 3.8 g/dL (1.7-4.1); Glucose 336 mg/dL (80-110); HEMOLYSIS 17 (0-50); Potassium 4.8 mmol/L (3.4-5.1); Sodium 132 mmol/L (137-145); Total Protein 7.9 g/dL (6.3-8.2)
[2022-07-02 14:56] LABS: C-Reactive Protein Quant 19.5 mg/dL (<1.0)
== END ==
PROVIDERS: PCP Family Medicine Sports Medicine; Visit Provider Internal Medicine Infectious Disease
DX: L08.9 Local infection of the skin and subcutaneous tissue, unspecified (principal)
CPT/HCPCS: 80053; 85025; 86140

== ENCOUNTER → 2022-08-16 14:16 | Outpatient (ROUT) | payer OTHER, SELFPAY ==
[2022-08-16 14:30] LABS: Add Manual Diff / Slide Review NO; Basophils Absolute Auto 0 /uL (0-100); Basophils Percent Auto 0.6 % (0-2); Eosinophils Absolute Auto 200 /uL (0-450); Eosinophils Percent Auto 3.3 % (2-4); Hematocrit 39.3 % (41-53); Hemoglobin 12.9 g/dL (13.5-17.5); Lymphocytes Absolute Auto 1400 /uL (1100-4500); Lymphocytes Percent Auto 18.6 % (25-40); Mean Corpuscular HGB Conc 32.7 % (30-36); Mean Corpuscular Volume 76.5 fL (80-100); Monocytes Absolute Auto 800 /uL (0-900); Neutrophils Absolute Auto 5000 /uL (1500-7000); Neutrophils Percent Auto 66.5 % (50-75); Platelet Count 552 X10^3/uL (150-400); Red Blood Cell Count 5.14 X10^6/uL (4.5-5.9); Red Cell Distribution Width 17.4 % (11.6-14.8); White Blood Cell Count 7.6 X10^3/uL (4.5-11.0)
[2022-08-16 14:33] LABS: Appearance Urine UA SL CLOUDY; Bilirubin Urine UA NEGATIVE (NEGATIVE); Color Urine UA YELLOW; Glucose Urine UA 2+ g/dL (Negative); Ketones Urine UA NEGATIVE (NEGATIVE); Leukocyte Esterase Urine UA 1+ (NEGATIVE); Nitrite Urine UA POSITIVE (Negative); Occult Blood Urine UA TRACE-INTACT (Negative); Protein Urine UA TRACE (Negative); Urobilinogen Urine UA 0.2 E.U./dL (0.2)
[2022-08-16 14:38] LABS: Alanine Aminotransferase 19 IU/L (<50); Albumin 4.2 g/dL (3.5-5.0); Alkaline Phosphatase 110 U/L (38-126); Aspartate Aminotransferase 21 IU/L (17-59); BUN Creatinine Ratio 45.5 (6-22); Bilirubin Total 0.3 mg/dL (0.2-1.3); Blood Urea Nitrogen 25 mg/dL (9-20); Calcium 9.5 mg/dL (8.4-10.2); Carbon Dioxide 31 mmol/L (22-32); Chloride 94 mmol/L (98-107); Estimated Glomerular Filt Rate > 60 mL/min (>60); Globulin 4.3 g/dL (1.7-4.1); Glucose 333 mg/dL (80-110); HEMOLYSIS < 15 (0-50); Potassium 4.6 mmol/L (3.4-5.1); Sodium 135 mmol/L (137-145); Total Protein 8.5 g/dL (6.3-8.2); Ur Creatinine Normal (Normal); Ur Specific Gravity Normal (Normal); Urine pH Normal (Normal)
[2022-08-16 14:39] LABS: UR Morphine/Opiate cutoff 300 Negative (Negative); Urine Amphetamines Negative (Negative); Urine Barbiturates Negative (Negative); Urine Benzodiazepines Negative (Negative); Urine Cocaine Negative (Negative); Urine MDMA Negative (Negative); Urine Methadone Negative (Negative); Urine Methamphetamines Negative (Negative); Urine Oxycodone Negative (Negative); Urine Phencyclidine Negative (Negative); Urine Tetrahydrocannabinol Negative (Negative); Urine Tricyclic Antidepressant Negative (Negative)
[2022-08-16 14:41] LABS: Hemoglobin A1C% w Est Avg Glu 12.1 % (4.0-6.0)
[2022-08-16 14:48] LABS: Bacteria Urine Many (>30); Culture Indicated Urine Specimen Cultured; RBC Urine 1-5/HPF (0-5/HPF); Squamous Epithelial Cell Urine 0-1 /HPF (0-5/HPF); WBC Urine 5-10/HPF (0-5/HPF)
[2022-08-16 15:09] LABS: TSH w/ Reflex to FT4 0.62 uIU/mL (0.47-4.68)
== END ==
PROVIDERS: PCP Pediatrics; Visit Provider Pediatrics
DX: E11.9 Type 2 diabetes mellitus without complications (principal); I10 Essential (primary) hypertension
CPT/HCPCS: 80053; 80305; 81001; 83036; 84443; 85025; 87077; 87086; 87186

== ENCOUNTER → 2022-11-13 15:38 | Outpatient (ROUT) | payer OTHER, SELFPAY ==
[2022-11-13 17:01] LABS: Creatinine Urine Random 8.7 mg/dL
[2022-11-13 17:06] LABS: Microalbumi Creatinin Ratio Ur 1229.8 ug/mg CR (<30); Microalbumin Urine Random 10.7 mg/dL (0-1.6)
== END ==
PROVIDERS: PCP Family Medicine; Visit Provider Family Medicine
DX: G89.29 Other chronic pain (principal); I10 Essential (primary) hypertension; E11.65 Type 2 diabetes mellitus with hyperglycemia; Z79.4 Long term (current) use of insulin
CPT/HCPCS: 82043; 82570

== ENCOUNTER → 2022-11-29 17:23 | Outpatient (ROUT) | payer OTHER, SELFPAY ==
[2022-11-29 17:51] LABS: Alanine Aminotransferase 22 IU/L (<50); Albumin 4.4 g/dL (3.5-5.0); Albumin Globulin Ratio 1.1 (1.0-2.8); Alkaline Phosphatase 115 U/L (38-126); Aspartate Aminotransferase 17 IU/L (17-59); BUN Creatinine Ratio 36.4 (6-22); Bilirubin Total 0.3 mg/dL (0.2-1.3); Blood Urea Nitrogen 16 mg/dL (9-20); Calcium 9.3 mg/dL (8.4-10.2); Carbon Dioxide 24 mmol/L (22-32); Chloride 95 mmol/L (98-107); Estimated Glomerular Filt Rate > 60 mL/min (>60); Globulin 3.9 g/dL (1.7-4.1); Glucose 233 mg/dL (80-110); HEMOLYSIS < 15 (0-50); Potassium 4.8 mmol/L (3.4-5.1); Sodium 134 mmol/L (137-145); Total Protein 8.3 g/dL (6.3-8.2)
[2022-11-29 17:55] LABS: Hemoglobin A1C% w Est Avg Glu 11.7 % (4.0-6.0)
== END ==
PROVIDERS: PCP Family Medicine; Visit Provider Family Medicine
DX: E11.65 Type 2 diabetes mellitus with hyperglycemia (principal); I10 Essential (primary) hypertension; G89.29 Other chronic pain; Z79.4 Long term (current) use of insulin
CPT/HCPCS: 80053; 83036

== ENCOUNTER → 2023-06-14 15:50 | Outpatient (ROUT) | payer OTHER, SELFPAY ==
[2023-06-14 16:00] LABS: Add Manual Diff / Slide Review NO; Basophils Absolute Auto 100 /uL (0-100); Basophils Percent Auto 0.6 % (0-2); Eosinophils Absolute Auto 300 /uL (0-450); Eosinophils Percent Auto 3.2 % (2-4); Hematocrit 34.2 % (41-53); Hemoglobin 11.3 g/dL (13.5-17.5); Lymphocytes Absolute Auto 1500 /uL (1100-4500); Lymphocytes Percent Auto 16.5 % (25-40); Mean Corpuscular Hemoglobin 23.7 PG (26-34); Mean Corpuscular Volume 71.7 fL (80-100); Monocytes Absolute Auto 800 /uL (0-900); Neutrophils Absolute Auto 6500 /uL (1500-7000); Neutrophils Percent Auto 70.7 % (50-75); Platelet Count 613 X10^3/uL (150-400); Red Blood Cell Count 4.77 X10^6/uL (4.5-5.9); Red Cell Distribution Width 17.7 % (11.6-14.8); White Blood Cell Count 9.2 X10^3/uL (4.5-11.0)
[2023-06-14 16:13] LABS: Alanine Aminotransferase 20 IU/L (<50); Albumin 3.9 g/dL (3.5-5.0); Albumin Globulin Ratio 0.9 (1.0-2.8); Alkaline Phosphatase 105 U/L (38-126); Aspartate Aminotransferase 19 IU/L (17-59); BUN Creatinine Ratio 37.2 (6-22); Bilirubin Total 0.2 mg/dL (0.2-1.3); Blood Urea Nitrogen 16 mg/dL (9-20); Calcium 9.1 mg/dL (8.4-10.2); Carbon Dioxide 27 mmol/L (22-32); Chloride 100 mmol/L (98-107); Cholesterol 189 mg/dL (140-199); Estimated Glomerular Filt Rate > 60 mL/min (>60); Globulin 4.5 g/dL (1.7-4.1); Glucose 192 mg/dL (80-110); HDL Cholesterol 31 mg/dL (40-60); HEMOLYSIS < 15 (0-50); LDL Cholesterol Calculated 129 mg/dL (<100); Potassium 4.3 mmol/L (3.4-5.1); Sodium 134 mmol/L (137-145); Total Protein 8.4 g/dL (6.3-8.2); Triglycerides 144 mg/dL (35-150)
[2023-06-14 16:32] LABS: Creatinine Urine Random 11.6 mg/dL
[2023-06-14 17:08] LABS: Microalbumi Creatinin Ratio Ur 7327.5 ug/mg CR (<30)
[2023-06-15 04:00] LABS: x Labcorp Estim. Avg Glu (eAG) 329 mg/dL (.); x Labcorp Hemoglobin A1c 13.1 % (4.8-5.6)
== END ==
PROVIDERS: PCP Family Medicine; Visit Provider Family Medicine
DX: E11.29 Type 2 diabetes mellitus with other diabetic kidney complication (principal); R80.9 Proteinuria, unspecified; I10 Essential (primary) hypertension; E11.65 Type 2 diabetes mellitus with hyperglycemia; Z79.4 Long term (current) use of insulin
CPT/HCPCS: 80053; 80061; 82043; 82570; 83036; 85025

== ENCOUNTER 2023-09-23 12:39 | Inpatient (IN) | payer OTHER, SELFPAY ==
[2023-09-23] VITALS (99 sets, daily range): BP systolic 73–135; BP diastolic 40–67; PULSE 82–130; RESP 13–50; TEMP 36.5–39.4; O2SAT 85–99; BMI 28.8
--- NOTE | 2023-09-23 13:00 | DI.CT.S_ITS ---
PROCEDURE: CT PELVIS W CON INDICATIONS: SEVERE SACRAL INFECTION TECHNIQUE: After the administration of intravenous contrast, 5 mm thick sections acquired from the iliac crests to the symphysis. 5 mm coronal and sagittal reformats were acquired. For radiation dose reduction, the following was used: automated exposure control, adjustment of mA and/or kV according to patient size. COMPARISON: [facility], CT, CT PELVIS W CON, 09/08/2018, 14:38. FINDINGS: Image quality: Excellent. Peritoneum and bowel: Bowel loops demonstrate normal wall thickness and caliber. No free fluid or air. Genitourinary: Bladder wall thickness is normal. Visualized portions of the kidneys demonstrate multiple simple cysts. Nodes and vessels: No iliac, pelvic, or inguinal adenopathy by size criteria. Iliac vessels demonstrate normal size and enhancement. Bones: No suspicious bony lesions. Miscellaneous: No inguinal hernias. There is a large soft tissue defect within the left gluteal region extending to the inferior pubic ramus. Extensive air is present. No well-defined fluid collection. There is appearance of prominent irregularity of the ramus which has been present since 2018 without significant interval change on current exam. No visualized superimposed pathologic fracture. There is prominent soft tissue thickening within the midline of the gluteal region. This appears to extend to the level of the rectum posteriorly. IMPRESSION: Prominent gluteal decubitus ulcer extending to the level of the inferior pubic ramus without pathologic fracture. Chronic changes are present within the ramus relatively stable compared to prior exam. Soft tissue thickening is also present at the midline of the gluteal region. Fistulous tract to the rectum cannot be definitively excluded within this focus and direct visualization is recommended. Dictated by: Elvira Ibarra M.D. on 09/23/2023 at 14:19 Approved by: Elvira Ibarra M.D. on 09/23/2023 at 14:22
--- NOTE | 2023-09-23 13:02 | DI.RAD.S_ITS ---
PROCEDURE: XR CHEST 1V INDICATIONS: SEPSIS TECHNIQUE: One view of the chest was acquired. COMPARISON: [facility], , CHEST 1 VIEW, 08/15/2017, 6:06. FINDINGS: Surgical changes and devices: None. Lungs and pleura: Bilateral perihilar infiltrates. No pleural effusions or pneumothorax. Mediastinum: Mediastinal contours appear normal. Heart size is mildly increased. Bones and chest wall: No suspicious bony lesions. Overlying soft tissues appear unremarkable. IMPRESSION: Mild cardiomegaly and bilateral perihilar infiltrates suggesting mild pulmonary congestion. Cannot rule out pneumonia. Dictated by: Kristopher Phillips M.D. on 09/23/2023 at 14:08 Approved by: Kristopher Phillips M.D. on 09/23/2023 at 14:11
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
[2023-09-23 13:16] LABS: INR 1.7 (0.9-1.3); Prothrombin Time 19.7 SECONDS (10.1-12.7)
[2023-09-23 13:20] LABS: Hematocrit 21.2 % (41-53); Mean Corpuscular Hemoglobin 22.1 PG (26-34); Mean Corpuscular Volume 67.2 fL (80-100); Red Blood Cell Count 3.15 X10^6/uL (4.5-5.9); Red Cell Distribution Width 17.8 % (11.6-14.8); White Blood Cell Count 28.3 X10^3/uL (4.5-11.0)
[2023-09-23 13:25] LABS: Lactate (Lactic Acid) 2.8 mmol/L (0.7-2.1)
[2023-09-23 13:26] LABS: Alanine Aminotransferase 73 IU/L (<50); Albumin 3.2 g/dL (3.5-5.0); Albumin Globulin Ratio 0.7 (1.0-2.8); Alkaline Phosphatase 139 U/L (38-126); Aspartate Aminotransferase 72 IU/L (17-59); BUN Creatinine Ratio 69.9 (6-22); Bilirubin Total 1.2 mg/dL (0.2-1.3); Blood Urea Nitrogen 65 mg/dL (9-20); Calcium 8.7 mg/dL (8.4-10.2); Carbon Dioxide 17 mmol/L (22-32); Chloride 99 mmol/L (98-107); Creatine Kinase 27 U/L (55-170); Estimated Glomerular Filt Rate > 60 mL/min (>60); Globulin 4.6 g/dL (1.7-4.1); Glucose 101 mg/dL (80-110); HEMOLYSIS 45 (0-50); Potassium 4.3 mmol/L (3.4-5.1); Sodium 130 mmol/L (137-145); Total Protein 7.8 g/dL (6.3-8.2)
[2023-09-23 13:29] LABS: Add Manual Diff / Slide Review YES; Platelet Count 984 X10^3/uL (150-400)
[2023-09-23 13:38] LABS: Troponin I 0.016 ng/mL (0.01-0.034)
[2023-09-23 13:42] LABS: Hypochromasia 1+; Microcytosis 2+; Neutrophils Absolute Manual 25187 /uL (3000-5900); Platelet Estimate Increased on smear; Total Cells Counted 100
[2023-09-23 13:43] LABS: Procalcitonin 68.3 ng/mL (<0.5); Target Cells 1+
[2023-09-23] MEDS: LACTATED RINGERS 2,400 ML 800 ML IV (13:45)
[2023-09-23] MEDS: CEFEPIME 2 GM in SODIUM CHLORIDE 0.9% 100 ML IV ×2 (13:50→21:32)
--- NOTE | 2023-09-23 14:08 | PC.NURSE ---
Patient in bed constantly shifting around, he is responsive but confused. Pt's sister remains at bedside. Pt o2 by NC increased, see vitals.
[2023-09-23 14:13] LABS: Appearance Urine UA CLEAR; Bilirubin Urine UA NEGATIVE (NEGATIVE); Color Urine UA ORANGE; Glucose Urine UA NEGATIVE (Negative); Ketones Urine UA TRACE (NEGATIVE); Leukocyte Esterase Urine UA 1+ (NEGATIVE); Nitrite Urine UA NEGATIVE (Negative); Occult Blood Urine UA TRACE-INTACT (Negative); Protein Urine UA TRACE (Negative); Urobilinogen Urine UA 0.2 E.U./dL (0.2)
[2023-09-23 14:22] LABS: Bacteria Urine Many (>30); Culture Indicated Urine Specimen Cultured; RBC Urine 0-1/HPF (0-5/HPF); Squamous Epithelial Cell Urine 1-5 /HPF (0-5/HPF); WBC Urine 10-30/HPF (0-5/HPF)
[2023-09-23] MEDS: VANCOMYCIN 1,000 MG/200 ML PIGGYBACK 200 MG IV (14:28)
[2023-09-23 14:30] LABS: COVID19 -Nasal RAPID Negative (Negative)
[2023-09-23] MEDS: ACETAMINOPHEN IV 1,000 MG/100 ML VIAL 400 MG IV (14:40)
[2023-09-23 14:47] LABS: Reflexed Lactate in 2 Hours Y
[2023-09-23] MEDS: LORazepam 2 MG/ML INJ 1 MG IV ×2 (15:07→18:20)
[2023-09-23 15:23] LABS: Lactate 2HR (Lactic Acid Rflx) 1.4 mmol/L (0.7-2.1)
[2023-09-23 15:33] LABS: pH ABG 7.48 (7.35-7.45)
[2023-09-23 15:34] LABS: Allen Test for ABG Passed? Yes, Passed; Blood Gas Collection Site Left Radial; Fractionated Inspired Oxygen 40; HCO3 ABG 15 mmol/L (23-27); Oxygen Saturation ABG 96 % (95-100); PCO2 ABG 19.9 mmHg (35-45); PO2 ABG 72 mmHg (80-100); TCO2 ABG 16 mmol/L (23-27)
[2023-09-23] MEDS: NOREPINEPHRINE BITARTRATE/D5W 4 MG/250 ML PLAST..BAG 36.231 MG IV (16:43)
--- NOTE | 2023-09-23 16:45 | PC.NURSE ---
Patient has been moved to trauma room 1 and started on medications (see MAR) for aggressive blood pressure management. Family members at bedside with patient. Bed tilted in trandelenberg position.
--- NOTE | 2023-09-23 16:55 | DI.CT.S_ITS ---
PROCEDURE: CT HEAD/BRAIN WO CON INDICATIONS: AMS TECHNIQUE: Noncontrast 4.5 mm thick angled axial sections acquired from the foramen magnum to the vertex, with coronal and sagittal reformats. For radiation dose reduction, the following was used: automated exposure control, adjustment of mA and/or kV according to patient size. COMPARISON: None. FINDINGS: Image quality: This examination is limited by involuntary motion artifact. Mild streak artifact can be seen through the skull base. CSF spaces: Basal cisterns are patent. No extra-axial fluid collections. The ventricles are symmetric in size and shape. Brain: No intracranial bleeds or masses. There is cerebral volume loss for age, with resultant ventricular and sulcal prominence. There are periventricular and deep white matter chronic small vessel ischemic changes. There is intracranial internal carotid artery atherosclerosis. Skull and face: Calvarium and visualized facial bones appear intact, without suspicious lesions. Sinuses: Visualized sinuses and mastoids are clear. IMPRESSION: No acute intracranial hemorrhage is seen. No acute intracranial process is seen. Dictated by: Isaac Reyes M.D. on 09/23/2023 at 16:46 Approved by: Isaac Reyes M.D. on 09/23/2023 at 16:46
--- NOTE | 2023-09-23 16:58 | PC.NURSE ---
EMS reported that patient had been seen and taken to the ER at [facility] 4 days ago, however there are no records and patient's family states that the patient refused transport to the hospital. Since then, the patient has been getting worse per family.
--- NOTE | 2023-09-23 17:55 | PC.NURSE ---
Central line inserted by Dr. Brooke, patient has claustrophobia but tolerated procedure well with his sister at bedside with him. No complications from insertion.
--- NOTE | 2023-09-23 18:04 | DI.RAD.S_ITS ---
PROCEDURE: XR CHEST 1V INDICATIONS: line placement TECHNIQUE: One view of the chest was acquired. COMPARISON: [facility], RONAL, XR CHEST 1V, 09/23/2023, 13:30. [facility], , CHEST 1 VIEW, 08/15/2017, 6:06. FINDINGS: Surgical changes and devices: Right-sided central venous catheter. Partially visualized spinal hardware. Lungs and pleura: Prominent tissue markings. No pleural effusions or pneumothorax. Mediastinum: Mediastinal contours appear normal. Heart size is mildly enlarged. Bones and chest wall: No suspicious bony lesions. Overlying soft tissues appear unremarkable. IMPRESSION: Right-sided central venous catheter with tip in the superior cava. Redemonstration of mild cardiomegaly and prominent interstitial markings, likely representing pulmonary edema. Dictated by: Justen Ferris M.D. on 09/23/2023 at 18:18 Approved by: Justen Ferris M.D. on 09/23/2023 at 18:20
[2023-09-23] MEDS: NOREPINEPHRINE BITARTRATE/D5W 4 MG/250 ML PLAST..BAG 181.153 MG IV (18:33)
[2023-09-23] MEDS: NOREPINEPHRINE BITARTRATE/D5W 4 MG/250 ML PLAST..BAG 144.923 MG IV (20:05)
[2023-09-23] MEDS: metroNIDAZOLE 500 MG/100 ML PIGGYBACK 100 MG IV (20:25)
--- NOTE | 2023-09-23 21:03 | PC.WOUNDPHOT ---
WOUND PHOTOS TAKEN BY Brandy REDDY RN BUTTOCKS
[2023-09-23 21:22] LABS: Lactate (Lactic Acid) 1.1 mmol/L (0.7-2.1)
[2023-09-23] MEDS: LACTATED RINGERS 1,000 ML 150 ML IV (21:30)
[2023-09-23] MEDS: INSULIN LISPRO 100 UNIT/ML 3ML VIAL SUBCUT (21:46)
[2023-09-23] MEDS: INSULIN GLARGINE 100 UNIT/ML 3ML PEN SUBCUT (21:46)
[2023-09-23] MEDS: NOREPINEPHRINE BITARTRATE/D5W 4 MG/250 ML PLAST..BAG 108.692 MG IV (22:02)
[2023-09-23] MEDS: VANCOMYCIN 1,500 MG/300 ML PIGGYBACK 150 MG IV (22:36)
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
--- NOTE | 2023-09-23 23:31 | P.EN_ITS ---
Event Note Event Note (Rapid Response, Code, or fall): Full H&P to follow Admitted with sepsis and left sacral decubirtus wound Now on pressors and andtibiotics Spoke with critical care who want's surgical evaluation Flagyl changed to Clindamycin Spoke with concrete pipe plant supervisor surgeon who reviewed the scan. She reports air is in the wound since it is open to air rather than necrotizing infection. She will see the patient in the morning. Michelle Barron MD [facility]
[2023-09-24] VITALS (134 sets, daily range): BP systolic 61–155; BP diastolic 35–105; PULSE 79–141; RESP 11–61; TEMP 35.1–39.4; O2SAT 69–99
--- NOTE | 2023-09-24 | PM.CALLCOV.1 ---
Call Coverage Note Note Date of Patient Contact: 09/24/23 Time of Patient Contact: 00:00 Narrative of Care Provided: Patient discussed earlier in evening with hospitalist. CT scan with gas due to large sacral defect that represents chronic sacral decubitus and not from necrotizing fasciitis. Do not discount osteomyelitis. CT is similar to previous CT representing chronic changes of soft tissue for the most part, no undrained fluids. Critical anemia and dehydration. Fistulus tract would not be suprising given that the rectum is at base of wound w/o healthy tissue coverage. Stool contamination is expected, as such a new fistulus tract wound not increase chronic contamination. If able to stablize, wound benefit from exam under anesthesia with debridement and recommend diverting colostomy this hospital stay for improved wound care. Emergent surgery not recommended at this time as resuscitation is needed and will not likely change the course of disease but will increase risk of .
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
[2023-09-24] MEDS: CLINDAMYCIN 900 MG/50 ML PIGGYBACK 50 MG IV ×4 (00:47→23:53)
[2023-09-24] MEDS: NOREPINEPHRINE BITARTRATE/D5W 4 MG/250 ML PLAST..BAG 65.215 MG IV (00:51)
[2023-09-24 00:58] LABS: INR 1.6 (0.9-1.3)
[2023-09-24 01:02] LABS: Allen Test for ABG Passed? Yes, Passed; Blood Gas Collection Site Right Radial; Fractionated Inspired Oxygen 28; HCO3 ABG 18 mmol/L (23-27); Oxygen Saturation ABG 96 % (95-100); PCO2 ABG 36.9 mmHg (35-45); PO2 ABG 93 mmHg (80-100); TCO2 ABG 19 mmol/L (23-27)
[2023-09-24 01:02] LABS: PTT Partial Thromboplastin Tim 35 SECONDS (26-36)
[2023-09-24 01:03] LABS: pH ABG 7.29 (7.35-7.45)
[2023-09-24 01:11] LABS: Lactate (Lactic Acid) 0.9 mmol/L (0.7-2.1)
[2023-09-24 01:12] LABS: Alanine Aminotransferase 68 IU/L (<50); Albumin 2.8 g/dL (3.5-5.0); Albumin Globulin Ratio 0.7 (1.0-2.8); Alkaline Phosphatase 149 U/L (38-126); Aspartate Aminotransferase 60 IU/L (17-59); BUN Creatinine Ratio 68.2 (6-22); Bilirubin Total 1.1 mg/dL (0.2-1.3); Blood Urea Nitrogen 45 mg/dL (9-20); Calcium 8.4 mg/dL (8.4-10.2); Carbon Dioxide 17 mmol/L (22-32); Chloride 104 mmol/L (98-107); Estimated Glomerular Filt Rate > 60 mL/min (>60); Globulin 4.3 g/dL (1.7-4.1); Glucose 318 mg/dL (80-110); HEMOLYSIS < 15 (0-50); Sodium 135 mmol/L (137-145); Total Protein 7.1 g/dL (6.3-8.2)
[2023-09-24 01:16] LABS: Hemoglobin 8.1 g/dL (13.5-17.5); Mean Corpuscular HGB Conc 33.2 % (30-36); Mean Corpuscular Hemoglobin 23.3 PG (26-34); Platelet Count 904 X10^3/uL (150-400); Red Blood Cell Count 3.47 X10^6/uL (4.5-5.9)
[2023-09-24 01:23] LABS: Add Manual Diff / Slide Review YES; Hematocrit 24.3 % (41-53)
[2023-09-24 01:33] LABS: Appearance Urine UA CLEAR; Bilirubin Urine UA NEGATIVE (NEGATIVE); Color Urine UA YELLOW; Glucose Urine UA 2+ g/dL (Negative); Ketones Urine UA 2+ (NEGATIVE); Leukocyte Esterase Urine UA 1+ (NEGATIVE); Nitrite Urine UA NEGATIVE (Negative); Occult Blood Urine UA 3+ (Negative); Protein Urine UA TRACE (Negative); Specific Gravity Urine UA 1.015 (1.000-1.035); Urobilinogen Urine UA 0.2 E.U./dL (0.2)
[2023-09-24 01:56] LABS: Bacteria Urine None Seen; RBC Urine 10-30/HPF (0-5/HPF); Squamous Epithelial Cell Urine 0-1 /HPF (0-5/HPF); WBC Urine 1-5/HPF (0-5/HPF)
[2023-09-24 02:31] LABS: Total Cells Counted 100
[2023-09-24 02:32] LABS: Neutrophils Absolute Manual 45120 /uL (3000-5900); Platelet Estimate Increased on smear
[2023-09-24] MEDS: INSULIN LISPRO 100 UNIT/ML 3ML VIAL SUBCUT ×5 (03:01→20:12)
[2023-09-24] MEDS: OXYCODONE IR 5 MG TABLET PO ×3 (03:49→21:19)
[2023-09-24] MEDS: metroNIDAZOLE 500 MG/100 ML PIGGYBACK 100 MG IV ×2 (05:01→13:54)
[2023-09-24 05:51] LABS: Hematocrit 23.9 % (41-53); Hemoglobin 7.9 g/dL (13.5-17.5); Mean Corpuscular HGB Conc 33.2 % (30-36); Mean Corpuscular Hemoglobin 22.9 PG (26-34); Mean Corpuscular Volume 69.1 fL (80-100); Platelet Count 861 X10^3/uL (150-400); Red Blood Cell Count 3.46 X10^6/uL (4.5-5.9)
[2023-09-24 06:08] LABS: White Blood Cell Count 37.5 X10^3/uL (4.5-11.0)
[2023-09-24 06:09] LABS: Add Manual Diff / Slide Review YES
[2023-09-24 06:48] LABS: Microcytosis 1+; Neutrophils Absolute Manual 35625 /uL (3000-5900); Total Cells Counted 100
[2023-09-24] MEDS: VANCOMYCIN 1,250 MG/250 ML PIGGYBACK 250 MG IV ×3 (07:49→22:25)
[2023-09-24 07:57] LABS: MRSA (Nasal) PCR Not Detected (Not Detect)
[2023-09-24] MEDS: ENOXAPARIN 40 MG/0.4 ML SYRINGE SUBCUT (08:55)
[2023-09-24] MEDS: ACETAMINOPHEN 325 MG TABLET 650 MG PO ×3 (08:56→20:11)
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
[2023-09-24] MEDS: LACTATED RINGERS 1,000 ML 75 ML IV (10:20)
[2023-09-24] MEDS: CEFEPIME 2 GM in SODIUM CHLORIDE 0.9% 100 ML IV ×2 (10:20→20:12)
[2023-09-24] MEDS: NOREPINEPHRINE BITARTRATE/D5W 4 MG/250 ML PLAST..BAG 9.056 MG IV (10:57)
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
[2023-09-24 12:12] LABS: Acinetobacter calcoa-baumannii Not Detected (Not Detect); Bacteroides fragilis Not Detected (Not Detect); Candida albicans Not Detected (Not Detect); Candida auris Not Detected (Not Detect); Candida glabrata Not Detected (Not Detect); Candida krusei Not Detected (Not Detect); Candida parapsilosis Not Detected (Not Detect); Candida tropicalis Not Detected (Not Detect); Cryptococcus neoformans/gatti Not Detected (Not Detect); Enterobacter cloacae complex Not Detected (Not Detect); Enterobacterales Not Detected (Not Detect); Enterococcus faecalis Not Detected (Not Detect); Enterococcus faecium Not Detected (Not Detect); Haemophilus influenzae Not Detected (Not Detect); Klebsiella aerogenes Not Detected (Not Detect); Listeria monocytogenes Not Detected (Not Detect); Neisseria meningitidis Not Detected (Not Detect); Proteus species Not Detected (Not Detect); Pseudomonas aeruginosa Not Detected (Not Detect); Salmonella species Not Detected (Not Detect); Serratia marcescens Not Detected (Not Detect); Staphylococcus epidermidis Not Detected (Not Detect); Staphylococcus lugdunensis Not Detected (Not Detect); Staphylococcus species Not Detected (Not Detect); Stenotrophomonas maltophilia Not Detected (Not Detect); Streptococcus agalactiae (Gr B Not Detected (Not Detect); Streptococcus pneumonia Not Detected (Not Detect); Streptococcus pyogenes (Gr A) Not Detected (Not Detect); Streptococcus species Detected (Not Detect)
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
--- NOTE | 2023-09-24 15:24 | DI.RAD.S_ITS ---
PROCEDURE: XR CHEST 1V INDICATIONS: shortness of breath TECHNIQUE: One view of the chest was acquired. COMPARISON: [facility], CR, XR CHEST 1V, 09/23/2023, 18:03. FINDINGS: Surgical changes and devices: Right central venous catheter is unchanged. Lungs and pleura: There is diffuse interstitial prominence. No focal airspace opacities. Mediastinum: Mediastinal contours appear normal. Heart size is normal. Bones and chest wall: No suspicious bony lesions. Overlying soft tissues appear unremarkable. IMPRESSION: Diffuse interstitial prominence suggesting pulmonary edema. Dictated by: Sussy Oconnor M.D. on 09/24/2023 at 16:15 Approved by: Sussy Oconnor M.D. on 09/24/2023 at 16:15
[2023-09-24 16:06] LABS: BUN Creatinine Ratio 61.4 (6-22); Blood Urea Nitrogen 43 mg/dL (9-20); Calcium 8.2 mg/dL (8.4-10.2); Carbon Dioxide 18 mmol/L (22-32); Chloride 103 mmol/L (98-107); Estimated Glomerular Filt Rate > 60 mL/min (>60); Glucose 228 mg/dL (80-110); HEMOLYSIS < 15 (0-50); Magnesium 1.6 mg/dL (1.6-2.3); Potassium 3.7 mmol/L (3.4-5.1); Sodium 128 mmol/L (137-145)
[2023-09-24 16:07] LABS: Lactate (Lactic Acid) 4.4 mmol/L (0.7-2.1)
[2023-09-24 16:10] LABS: D Dimer 10581 ng/ml (<500)
--- NOTE | 2023-09-24 16:13 | DI.CT.S_ITS ---
PROCEDURE: CT ANGIO CHEST PE PROTOCOL INDICATIONS: sob, tachy, high d dimer TECHNIQUE: After the administration of intravenous contrast, 2 mm thick sections acquired from the pulmonary apices to the posterior costophrenic angles. 3-dimensional maximum intensity projection (MIP) coronal and sagittal reformats were then acquired through the thorax. For radiation dose reduction, the following was used: automated exposure control, adjustment of mA and/or kV according to patient size. COMPARISON: None. FINDINGS: Image quality: Excellent. Pulmonary arteries: Pulmonary arteries are normal in size, and demonstrate no intraluminal filling defects to suggest central pulmonary embolism. Lungs and pleura: There is mild atelectasis in the dependent lungs bilaterally. Lung volumes are low. No pleural effusions or pneumothorax. Central and peripheral airways are patent. Mediastinum: Heart size is normal, without pericardial effusion. No mediastinal or hilar adenopathy. Thoracic aorta is normal in caliber and enhancement. Scattered atheromatous calcifications are present within the aortic arch. Esophagus is normal in caliber, without hiatal hernia. Bones and chest wall: No suspicious bony lesions. Ribs and thoracic spine appear intact throughout. Thyroid gland is unremarkable. No axillary or supraclavicular adenopathy. Abdomen: There are multiple renal cystic lesions which are incompletely characterized on this limited view of the kidneys. Subcentimeter gallstones are layered in the gallbladder fundus. Visualized upper abdominal solid organs appear otherwise normal in the early arterial phase of enhancement. IMPRESSION: 1. No acute pulmonary embolus. 2. Low lung volumes and dependent basilar atelectasis. Dictated by: Sussy Oconnor M.D. on 09/24/2023 at 17:28 Approved by: Sussy Oconnor M.D. on 09/24/2023 at 17:30
[2023-09-24] MEDS: MAGNESIUM CHLORIDE 64 MG TABLET 128 MG PO (17:27)
[2023-09-24 17:48] LABS: Reflexed Lactate in 2 Hours Y
[2023-09-24 18:38] LABS: Lactate 2HR (Lactic Acid Rflx) 3.1 mmol/L (0.7-2.1)
[2023-09-24] MEDS: LORazepam 2 MG/ML INJ 0.5 MG IV (19:13)
[2023-09-24] MEDS: INSULIN GLARGINE 100 UNIT/ML 3ML PEN SUBCUT (20:13)
--- NOTE | 2023-09-24 20:50 | PM.ICURNDS ---
- :: This patient was seen via real time interactive two-way audiovisual telecommunication. pt remains on high doses of levophed. his HR is imrpoved from michaelr in the day, albumin may have helped but from report given to me he also struggles with anxiety in the ICU and received ativan earlier. Will continue current management, and consider precedex if anxiety persists and anxiolitics are needed.
[2023-09-24] MEDS: NOREPINEPHRINE BITARTRATE/D5W 4 MG/250 ML PLAST..BAG 78.84 MG IV (21:13)
[2023-09-24] MEDS: NOREPINEPHRINE BITARTRATE/D5W 4 MG/250 ML PLAST..BAG 82.125 MG IV (23:52)
[2023-09-25] VITALS (51 sets, daily range): BP systolic 96–140; BP diastolic 49–94; PULSE 81–125; RESP 19–55; TEMP 34.9–37.6; O2SAT 90–98; BMI 25.8
[2023-09-25] MEDS: NOREPINEPHRINE BITARTRATE/D5W 4 MG/250 ML PLAST..BAG 32.85 MG IV (05:07)
[2023-09-25] MEDS: VANCOMYCIN 1,250 MG/250 ML PIGGYBACK 250 MG IV ×2 (06:32→18:32)
[2023-09-25] MEDS: OXYCODONE IR 5 MG TABLET PO ×3 (06:32→20:23)
[2023-09-25 06:49] LABS: Hematocrit 21.5 % (41-53); Hemoglobin 7.1 g/dL (13.5-17.5); Mean Corpuscular HGB Conc 33.2 % (30-36); Mean Corpuscular Hemoglobin 22.8 PG (26-34); Mean Corpuscular Volume 68.6 fL (80-100); Platelet Count 648 X10^3/uL (150-400); Red Blood Cell Count 3.13 X10^6/uL (4.5-5.9)
[2023-09-25 06:58] LABS: Add Manual Diff / Slide Review YES; White Blood Cell Count 34.5 X10^3/uL (4.5-11.0)
[2023-09-25 07:08] LABS: Magnesium 1.9 mg/dL (1.6-2.3)
[2023-09-25 07:09] LABS: BUN Creatinine Ratio 69.8 (6-22); Blood Urea Nitrogen 37 mg/dL (9-20); Calcium 8.2 mg/dL (8.4-10.2); Carbon Dioxide 19 mmol/L (22-32); Chloride 102 mmol/L (98-107); Estimated Glomerular Filt Rate > 60 mL/min (>60); Glucose 387 mg/dL (80-110); HEMOLYSIS 16 (0-50); Sodium 129 mmol/L (137-145)
[2023-09-25 07:23] LABS: Neutrophils Absolute Manual 29325 /uL (3000-5900); Total Cells Counted 100
[2023-09-25 07:25] LABS: Microcytosis 2+; Target Cells 1+
[2023-09-25 07:28] LABS: Vancomycin Trough 21.9 ug/mL (10-20)
[2023-09-25] MEDS: CLINDAMYCIN 900 MG/50 ML PIGGYBACK 50 MG IV ×3 (07:47→22:56)
--- NOTE | 2023-09-25 07:54 | PM.CALLCOV.1 ---
Call Coverage Note Note Date of Patient Contact: 09/25/23 Time of Patient Contact: 07:54 Narrative of Care Provided: holding Lovenox until after debridement and diverting colostomy are complete. Transfusing 2 units pRBC in anticipation of blood loss during procedure
[2023-09-25] MEDS: INSULIN LISPRO 100 UNIT/ML 3ML VIAL SUBCUT ×4 (07:55→20:23)
[2023-09-25] MEDS: CEFEPIME 2 GM in SODIUM CHLORIDE 0.9% 100 ML IV (09:30)
--- NOTE | 2023-09-25 10:11 | PM.PN.EICU ---
Subjective Subjective IF CAMERA ACTIVATED, patient seen via real-time interactive audiovisual communication: Camera activated Consent obtained for tele-lecturer in computer science care: Yes Patient Location: ICU Provider location (State): [place] Other participants/roles: Dr. Krishnan Current Medications Current Medications Medications: Home Medications insulin NPH isoph U-100 human 100 unit/mL subcutaneous suspension (Novolin N NPH U-100 Insulin isophane) 40 unit (0.4 mL) SUBCUT BID #10 mL 10/30/22 [Rx Confirmed 07/12/23] gabapentin 300 mg capsule See Rx Instructions .Route .COMPLEX #90 caps 11/30/22 [Rx Confirmed 09/23/23] amlodipine 10 mg tablet 10 mg PO QDAY #90 tabs 06/14/23 [Rx Confirmed 09/23/23] hydrochlorothiazide 50 mg tablet 50 mg PO DAILY 09/23/23 [History Confirmed 09/23/23] hydroxyzine pamoate 50 mg capsule 50 mg PO 3XD 09/23/23 [History Confirmed 09/23/23] lisinopril 40 mg tablet 40 mg PO DAILY 09/23/23 [History Confirmed 09/23/23] Visit Medications (administered) Generic Name Dose Route Start Last Admin Trade Name Freq PRN Reason Stop Dose Admin Acetaminophen 650 mg 09/23/23 20:30 09/25/23 09:30 Acetaminophen 325 Mg Tablet PO Not Given Q6H YG Enoxaparin Sodium 40 mg 09/24/23 09:00 09/24/23 08:55 Enoxaparin 40 Mg/0.4 Ml Syringe SUBCUT 40 mg DAILY YG Administration Cefepime HCl 2 gm/ Sodium 100 mls @ 200 mls/hr 09/23/23 21:00 09/25/23 09:30 Chloride IV 200 mls/hr Q12H YG Administration Clindamycin Phosphate 900 mg in 50 mls @ 50 mls/hr 09/23/23 23:38 09/25/23 08:47 Cleocin IV Infused Q8H YG Infusion Vancomycin HCl 1,250 mg in 250 mls @ 250 mls/hr 09/24/23 07:00 09/25/23 08:47 Vancomycin IV Infused Q8H YG Infusion NOREPINEPHRINE BITARTRATE/D5W 4 mg in 250 mls @ 78.84 mls/hr 09/24/23 21:15 09/25/23 07:02 Levophed IV 0 mcg/kg/min TITRATE YG 0 mls/hr Infusion 0.24 MCG/KG/MIN Insulin Glargine 5 unit 09/23/23 21:00 09/24/23 20:13 Insulin Glargine 100 Unit/Ml 3ml Pen SUBCUT 5 unit BEDTIME YG Administration Insulin Human Lispro 0 unit 09/24/23 07:45 09/25/23 07:55 Insulin Lispro 100 Unit/Ml 3ml Vial SUBCUT 8 unit ACHS YG Administration Protocol Oxycodone HCl 5 mg 09/24/23 08:11 09/25/23 06:32 Oxycodone Ir 5 Mg Tablet PO 5 mg Q4HR PRN Administration Pain, Moderate (4-6) Objective Labs 09/25/23 06:30 09/25/23 06:30 Labs: Laboratory Results - last 24 hr 09/23/23 09/23/23 09/24/23 13:15 13:52 15:43 WBC RBC Hgb Hct MCV MCH MCHC RDW Plt Count Neut % (Auto) Lymph % (Auto) Wells % (Auto) Eos % (Auto) Baso % (Auto) Lymph # (Auto) Wells # (Auto) Baso # (Auto) Total Counted Seg Neutrophils % Band Neutrophils % Lymphocytes % (Manual) Monocytes % (Manual) Eosinophils % (Manual) Neutrophils # (Manual) RBC Morphology Microcytosis Target Cells D-Dimer 41167 H Sodium 128 L Potassium 3.7 Chloride 103 Carbon Dioxide 18 L BUN 43 H Creatinine 0.70 Estimated GFR > 60 BUN/Creatinine Ratio 61.4 H Glucose 228 H Lactate 4.4 H* Calcium 8.2 L Magnesium 1.6 Vancomycin Peak Vancomycin Trough A.calcoaceticus-baumannii cmplx PCR Not detected Bacteroides fragilis Not detected Hedy albicans (PCR) Not detected Hedy auris (PCR) Not detected C. glabrata (PCR) Not detected C. krusei (PCR) Not detected C. parapsilosis (PCR) Not detected C. tropicalis (PCR) Not detected C. neoform/gattii (PCR) Not detected Enterobacterales (PCR) Not detected E. cloacae complex PCR Not detected Enterococc faecalis PCR Not detected Enterococc faecium PCR Not detected E. coli (PCR) Not detected H. influenzae (PCR) Not detected Klebsiella aerogenes (PCR) Not detected Klebsiella oxytoca PCR Not detected Klebsiella pneumoniae Not detected List. monocytogenes PCR Not detected N. meningitidis (PCR) Not detected Proteus species (PCR) Not detected Salmonella spp. (PCR) Not detected Serratia marcescens PCR Not detected Staphylococcus sp PCR Not detected Staph aureus (PCR) Not detected mecA/C & MREJ Resist Gene Not applicable mecA/C-Methicil Resis Gene Not applicable mcr-1 Colistin Res Gene PCR Not applicable Staph epidermidis (PCR) Not detected Staph lugdunensis PCR Not detected S. maltophilia (PCR) Not detected Streptococcus sp PCR Detected Group A Strep (PCR) Not detected Strep agalactiae (PCR) Not detected Strep pneumoniae (PCR) Not detected P. aeruginosa (PCR) Not detected Cory/B-Vanco Res Genes Not applicable blaIMP Car res Gene PCR Not applicable KPC-Carbap Res Gene PCR Not applicable blaNDM Car Res Gene PCR Not applicable OXA-48 Carbapenem Resis Gene (PCR) Not applicable blaVIM Car Res Gene PCR Not applicable CTX-M Gene Resistance (PCR) Not applicable Blood Type O Positive Antibody Screen Negative Crossmatch See Detail 09/24/23 09/25/23 09/25/23 18:18 06:30 08:42 WBC 34.5 H* RBC 3.13 L Hgb 7.1 L Hct 21.5 L MCV 68.6 L MCH 22.8 L MCHC 33.2 RDW 20.0 H Plt Count 648 H Neut % (Auto) Not Reportable Lymph % (Auto) Not Reportable Wells % (Auto) Not Reportable Eos % (Auto) Not Reportable Baso % (Auto) Not Reportable Lymph # (Auto) Not Reportable Wells # (Auto) Not Reportable Baso # (Auto) Not Reportable Total Counted 100 Seg Neutrophils % 73.0 H Band Neutrophils % 12.0 H Lymphocytes % (Manual) 10.0 L D Monocytes % (Manual) 3.0 Eosinophils % (Manual) 2.0 Neutrophils # (Manual) 23043 H RBC Morphology See below Microcytosis 2+ H Target Cells 1+ H D-Dimer Sodium 129 L Potassium 4.0 Chloride 102 Carbon Dioxide 19 L BUN 37 H Creatinine 0.53 L Estimated GFR > 60 BUN/Creatinine Ratio 69.8 H Glucose 387 H D Lactate 3.1 H Calcium 8.2 L Magnesium 1.9 Vancomycin Peak 42.0 H* Vancomycin Trough 21.9 H* A.calcoaceticus-baumannii cmplx PCR Bacteroides fragilis Hedy albicans (PCR) Hedy auris (PCR) C. glabrata (PCR) C. krusei (PCR) C. parapsilosis (PCR) C. tropicalis (PCR) C. neoform/gattii (PCR) Enterobacterales (PCR) E. cloacae complex PCR Enterococc faecalis PCR Enterococc faecium PCR E. coli (PCR) H. influenzae (PCR) Klebsiella aerogenes (PCR) Klebsiella oxytoca PCR Klebsiella pneumoniae List. monocytogenes PCR N. meningitidis (PCR) Proteus species (PCR) Salmonella spp. (PCR) Serratia marcescens PCR Staphylococcus sp PCR Staph aureus (PCR) mecA/C & MREJ Resist Gene mecA/C-Methicil Resis Gene mcr-1 Colistin Res Gene PCR Staph epidermidis (PCR) Staph lugdunensis PCR S. maltophilia (PCR) Streptococcus sp PCR Group A Strep (PCR) Strep agalactiae (PCR) Strep pneumoniae (PCR) P. aeruginosa (PCR) Cory/B-Vanco Res Genes blaIMP Car res Gene PCR KPC-Carbap Res Gene PCR blaNDM Car Res Gene PCR OXA-48 Carbapenem Resis Gene (PCR) blaVIM Car Res Gene PCR CTX-M Gene Resistance (PCR) Blood Type Antibody Screen Crossmatch Exam Vital Signs (past 8 hours): - 09/25/23 02:30 09/25/23 02:30 09/25/23 03:00 Temperature 96.1 F L Pulse Rate 83 Respiratory Rate 27 H Blood Pressure 117/59 L 119/56 L Pulse Oximetry 96 Oxygen Flow Rate 09/25/23 03:00 09/25/23 03:30 09/25/23 03:30 Temperature 95.7 F L 96.3 F L Pulse Rate 91 H 82 Respiratory Rate 29 H 21 Blood Pressure 118/59 L Pulse Oximetry 91 97 Oxygen Flow Rate 2 09/25/23 04:00 09/25/23 04:00 09/25/23 04:30 Temperature 95.9 F L Pulse Rate 83 Respiratory Rate 22 Blood Pressure 119/59 L 120/58 L Pulse Oximetry 97 Oxygen Flow Rate 2 09/25/23 04:30 09/25/23 05:00 09/25/23 05:00 Temperature 95.9 F L 95.7 F L Pulse Rate 83 86 Respiratory Rate 25 H 25 H Blood Pressure 123/61 Pulse Oximetry 96 96 Oxygen Flow Rate 09/25/23 05:04 09/25/23 05:04 09/25/23 05:30 Temperature 96.3 F L 96.3 F L Pulse Rate 84 82 Respiratory Rate 21 26 H Blood Pressure 129/57 L Pulse Oximetry 97 97 Oxygen Flow Rate 2 09/25/23 05:30 09/25/23 06:00 09/25/23 06:00 Temperature 96.4 F L Pulse Rate 83 Respiratory Rate 27 H Blood Pressure 120/58 L 120/58 L Pulse Oximetry 97 Oxygen Flow Rate 2 09/25/23 06:30 09/25/23 06:30 09/25/23 07:00 Temperature 96.3 F L 95.0 F L Pulse Rate 88 94 H Respiratory Rate 25 H 42 H Blood Pressure 130/62 Pulse Oximetry 96 92 Oxygen Flow Rate 09/25/23 07:00 09/25/23 07:30 09/25/23 07:30 Temperature 94.8 F L Pulse Rate 90 Respiratory Rate 30 H Blood Pressure 140/63 120/57 L Pulse Oximetry 91 Oxygen Flow Rate 09/25/23 08:00 09/25/23 08:00 09/25/23 08:30 Temperature 96.4 F L Pulse Rate 93 H Respiratory Rate 28 H Blood Pressure 114/54 L 117/61 Pulse Oximetry 91 Oxygen Flow Rate 09/25/23 08:30 09/25/23 09:00 09/25/23 09:00 Temperature 96.6 F L 96.6 F L Pulse Rate 91 H 94 H Respiratory Rate 39 H 55 H Blood Pressure 117/57 L Pulse Oximetry 90 L 94 Oxygen Flow Rate 09/25/23 09:30 09/25/23 09:30 09/25/23 10:00 Temperature 96.8 F L 96.8 F L Pulse Rate 97 H 92 H Respiratory Rate 39 H 32 H Blood Pressure 130/62 Pulse Oximetry 92 91 Oxygen Flow Rate 09/25/23 10:00 Temperature Pulse Rate Respiratory Rate Blood Pressure 114/54 L Pulse Oximetry Oxygen Flow Rate Oxygen Delivery Method Nasal Cannula Oxygen Flow Rate 2 Quality TeleICU VTE Deep Vein Thrombosis/Pulmonary Embolism Present on Admission: No Assessment & Plan Assessment & Plan narrative: patient seen on daily rounds chart/labs/imaging reviewed case d/w Dr. Krishnan 67 year old male with PMHx of admitted to ICU with severe sepsis with septic shock UTI osteomylellits gluteal decubitus ulcer/necrotizing fasciitis anemia thrombocytosis currently afebrile, HD stable adequate urine output wbc 34 hgb 7.0 plan -neurochecks/seizure precautions -minimize opiods -continue abx, deescalate based on cxs -serial cbc/coags, transfuse 2 prbc today -monitor ins/outs -replace lytes prn -keep glucose 140-180s -gi/dvt ppx -please call eICU if condition changes
--- NOTE | 2023-09-25 10:25 | CM.DPC ---
DCP Cont: Per MD, Surgeon plans to take pt to the OR today 09/25 for I&D around 1430 and then likely back to the OR on 09/27 for diverting colostomy. Wound Clinic aware that Wound/group fitness instructor consult placed. SW called Wound Clinic to alert them to the time pt will be off the floor today in OR so that hopefully group fitness instructor Tonya can do some teaching/ed with pt and sister bedside. Plan: SW to follow closely after I&D today and then new ostomy placement Saturday towards determining discharge planning needs. JELENA Del Rio
[2023-09-25] MEDS: INSULIN GLARGINE 100 UNIT/ML 3ML PEN 20 UNIT SUBCUT ×2 (10:32→20:24)
--- NOTE | 2023-09-25 11:48 | PC.NURSE ---
Addendum entered by Joi Zarco R.N. 09/25/23 18:36: Order received for Wound Care consult, message left at wound care clinic to inform of new consult. Addendum entered by Joi Zarco R.N. 09/25/23 15:39: Pt back to room at approx 1445. Alert and oriented to self, and to place once reoriented. Mildly forgetful and restless. Dressing to left buttock C/D/I, instructed pt on importance of offloading pressure on site and trying not to shift in order to keep dressing intact. SpO2 92-94% on 2L NC. Denies pain at this time. ST in the 110s. BP is stable. Call light placed within reach, pt instructed to call for assist as needed. Original Note: Day Shift Note Patient down for surgery at approx 1128. First unit of blood transfusing at time of transfer. Report given to Lanie PERRY.
--- NOTE | 2023-09-25 12:12 | PM.PREOP ---
Pre-operative Note Interval Note History & Physical reviewed/Exam performed by Physician: Yes Changes to H&P: No H&P completed within 30 days and has changed as indicated here:: Sepsis remains, slightly more stable.
[2023-09-25] MEDS: ALBUTEROL 2.5 MG/3 ML NEB (ADULT) INH (12:15)
[2023-09-25] MEDS: MIDAZOLAM 2 MG/2 ML VIAL IV (12:22)
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
--- NOTE | 2023-09-25 13:47 | PM.OP.1 ---
Operative Date/Time/Diagnoses Date of procedure: 09/25/23 Time of procedure: 13:47 Pre-op diagnosis: Sacral decubitus, sepsis Post-op diagnosis: same Procedure & Clinicians Procedure: Exam under anesthesia with sharp debridement of sacral wound and manual disimpaction Same procedure as scheduled: Yes Indications: Sacral wound, sepsis Surgeon: Nya Eubanks Click Yes if Unassisted: Yes Anesthesia Type: General Operative Notes Findings: Large sacral decubitus with exposure to left femoral socket and coccyx. Rectal stool ball Closure Type: not applicable Specimen(s): none sent Estimated Blood Loss (mL): 40 Blood products transfused: none Procedure in detail: Preop diagnosis: Sacral decubitus in the face of sepsis, paraplegia. Rectal stool ball Postop diagnosis: Same Operative procedure: Manual fecal disimpaction, sharp debridement of skin and subcutaneous tissue of sacral wound Surgeon: Sol Eubanks MD Findings: Large defect from sacral decubitus, multiple shallow skin ulcerations of the left buttocks, exposed left pelvic rami question left femur socket and coccyx/sacrum. Necrotic tissue of subcutaneous tissue and skin in origin. No purulent drainage. Firm stool in the rectum without fistula related to the rectum. Procedure: Patient placed in a lateral position. Rectal exam was performed showing decreased tone grade 2 hemorrhoids, and fecal stool ball that was manually disimpacted. Defect of the sacrum going from midline to the left pubic rami, measurement 13 cm times 8 cm times 15 cm depth. Debridement carried out with a 10 blade, involved medial skin edge and fibrinous tissue at the base. Healthy bleeding with debridement controlled with direct pressure and electrocautery. Given that the skin of the left buttocks had multiple areas of shallow ulcerations, I chose to fashion a dressing of DuoDerm to cover the ulcerations in a circumferential fashion so that dressing tape could be applied directly to the DuoDerm, leaving the DuoDerm in place for healing purposes. The defect was packed with dry Kerlix followed by ABD and Medipore tape. Patient was awakened, extubated, taken to recovery room in stable condition. Needle, instrument, sponge counts were correct. Specimen: None Blood loss: 40 ml
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
[2023-09-25] MEDS: ACETAMINOPHEN IV 1,000 MG/100 ML VIAL 400 MG IV (14:29)
--- NOTE | 2023-09-25 15:26 | DI.ECHO.S_ITS ---
[facility]+ [facility] +---------+ : : [address] : : : : [id number] : : : : Phone: [phone]+ Echocardiogram Report + + :Name: BRIANDA ROWLAND Study Date: 09/26/2023 Height: 72 in : :[facility] ReadingLocation: Weight: 190 lb : : Gender: Male BSA: 2.1 m2 : :: 1955 Age: 67 yrs BP: 109/56 mmHg: :Reason For Study: Bacteremia : :Ordering Physician: FATOU, : :MAURO Hart Performed By: Agnieszka Mario : :Referring: MAURO LAINEZ : + + Interpretation Summary The left ventricle is borderline hyperdynamic. Left ventricular ejection fraction is estimated to be 70 +/- 5%. The right ventricle is mildly dilated. The right ventricular systolic function is normal. No significant valvular pathology or obvious valvular vegetation seen. The IVC is of normal diameter and collapses greater than 50% with a sniff. This suggests a low right atrial pressure of 3 mm Hg. Procedure: A two-dimensional transthoracic echocardiogram with color flow and Doppler was performed. The study quality was technically adequate. There is no prior echocardiogram noted for this patient. A contrast injection of Definity was performed to improve assessment of LV function. The patient was in sinus tachycardia with heart rates between 108-111 bpm during the exam. Left Ventricle: The left ventricle is normal in size. Proximal septal thickening is noted. There is no thrombus. The left ventricle is borderline hyperdynamic. Left ventricular ejection fraction is estimated to be 70 +/- 5%. There are no focal wall motion abnormalities. Diastolic function could not be accurately assessed due to tachycardia. Right Ventricle: The right ventricle is mildly dilated. The right ventricular systolic function is normal. Atria: The left atrial size is normal. Right atrial size is normal. There is no Doppler evidence for an interatrial shunt. Mitral Valve: There is mild mitral annular calcification. There is no mitral valve stenosis. There is trace mitral regurgitation. Aortic Valve: The aortic valve is trileaflet. The aortic valve is mildly calcified. There is no aortic valve stenosis. There is trace aortic regurgitation. Tricuspid Valve: The tricuspid valve is normal. There is no tricuspid stenosis. There is trace tricuspid regurgitation. Pulmonary artery pressures cannot be estimated because of the lack of a measurable TR jet velocity. Pulmonic Valve: The pulmonic valve is not well visualized. There is no pulmonic valvular stenosis. There is trace pulmonic regurgitation. Great Vessels: The aortic root is normal size. The ascending aorta is normal in size. The pulmonary artery is normal size. The IVC is of normal diameter and collapses greater than 50% with a sniff. This suggests a low right atrial pressure of 3 mm Hg. Pericardium/ Pleura There is a trivial pericardial effusion noted. There is an anterior echo-free space consistent with a fat pad. There are no echocardiographic indications of cardiac tamponade. MMode/2D Measurements & Calculations LVIDd: 4.1 cm LVOT diam: 2.1 cm LVIDs: 2.6 cm Ao root diam: 3.2 cm FS: 36.6 % asc Aorta Diam: 3.4 cm IVSd: 1.1 cm LVPWd: 1.1 cm LV raya. diameter/BSA (cm/m^2): 2.0 LV sys. diameter/BSA (cm/m^2): 1.2 LA A2 area: 16.1 cm2 RA long axis: 5.8 cm LA A4 area: 14.0 cm2 RA area: 19.2 cm2 LA length (vol): 6.0 cm RA vol: 53.4 ml LA vol: 32.2 ml RA : 25.6 ml/m2 LA vol index: 15.4 ml/m2 RVD1 (basal): 4.7 cm LVLs ap4: 5.9 cm LVLd ap2: 7.4 cm TAPSE_phl: 2.2 cm LVLs ap2: 6.1 cm Doppler Measurements & Calculations Ao V2 max: 191.3 cm/sec LVOT Max Del: 174.0 cm/sec Ao V2 mean: 129.8 cm/sec LV V1 max P.1 mmHg Ao max P.0 mmHg LV V1 VTI: 22.4 cm Ao mean P.0 mmHg PAMELA(I,D): 3.0 cm2 Ao V2 VTI: 25.7 cm PAMELA(V,D): 3.2 cm2 sev ratio: 0.87 PAMELA indexed to BSA (cm^2/m^2): 1.5 MV E max del: 84.4 cm/sec TR max del: 160.0 cm/sec MV A max del: 95.1 cm/sec TR max P.2 mmHg MV E/A: 0.89 PA V2 max: 90.7 cm/sec MV dec time: 0.17 sec PA V2 mean: 61.4 cm/sec PA mean P.0 mmHg PA pr(Accel): 43.5 mmHg SV(LVOT): 77.7 ml AV VR_phl: 0.91 PAMELA(VTI)/BSA_phl: 1.4 Reading Physician:06:02 PM
--- NOTE | 2023-09-25 17:33 | PC.RNWOUND ---
Ostomy Nurse Consult Note Pre-op Colostomy Making Arrived this morning to see client for Pre-Op Colostomy marking but patient was getting ready to be transferred down to the OR for a surgical debridement of wound. Introduced myself to the patient. Patient and I know each other from [facility]. I explained to patient that I would be marking him for a colostomy and that I would come back up later this afternoon to margarito him for a colostomy. Arrived at 1700, patient sleeping but arousable. He recognized me. I explained that I would margarito him for the colostomy. Marked client on left abdomen with in clients field of vision, above belt line with in the rectus abdominis muscles. Used a permenant marker and covered with a tagaderm. Gave client the [facility] New Ostomy Patient Guide and marked in the table of contents what sections the patient he should review. Client was sleepy but did ask how big the bag was. I showed him an appliance and he asked how it attaches. I told him I would be able to review this with him after surgery, but that I also told him I marked in the New Patient Guide sections to review. I left a note in the Guide with instructions on sections to review. I left this at his bedside table and he said he would look at it later. Spoke with his nurse about his wound care and ostomy needs. Recommend that Dr. Valdez consult for wound care and help to develop a plan of care.
[2023-09-25] MEDS: cefTRIAXone 2,000 MG in SODIUM CHLORIDE 0.9% 100 ML 200 MG IV (20:21)
[2023-09-25] MEDS: ACETAMINOPHEN 325 MG TABLET 650 MG PO (20:21)
[2023-09-25] MEDS: hydrOXYzine pamoate 25 MG CAPSULE 50 MG PO (22:56)
[2023-09-25] MEDS: GABAPENTIN 300 MG CAPSULE PO (22:56)
[2023-09-26] VITALS (41 sets, daily range): BP systolic 84–150; BP diastolic 46–90; PULSE 92–127; RESP 17–49; TEMP 35.7–37.6; O2SAT 84–98
[2023-09-26] MEDS: OXYCODONE IR 5 MG TABLET PO ×2 (02:17→06:06)
[2023-09-26] MEDS: ACETAMINOPHEN 325 MG TABLET 650 MG PO ×3 (02:17→15:11)
[2023-09-26 05:52] LABS: Hematocrit 28.5 % (41-53); Hemoglobin 9.3 g/dL (13.5-17.5); Mean Corpuscular HGB Conc 32.6 % (30-36); Mean Corpuscular Hemoglobin 23.8 PG (26-34); Mean Corpuscular Volume 72.9 fL (80-100); Platelet Count 605 X10^3/uL (150-400); Red Blood Cell Count 3.91 X10^6/uL (4.5-5.9); Red Cell Distribution Width 22.8 % (11.6-14.8)
[2023-09-26 05:57] LABS: Add Manual Diff / Slide Review YES; White Blood Cell Count 31.2 X10^3/uL (4.5-11.0)
[2023-09-26] MEDS: VANCOMYCIN 1,250 MG/250 ML PIGGYBACK 250 MG IV ×2 (06:04→19:49)
[2023-09-26 06:38] LABS: Neutrophils Absolute Manual 29640 /uL (3000-5900); Total Cells Counted 100
[2023-09-26 06:40] LABS: Anisocytosis 1+; Target Cells 1+
[2023-09-26] MEDS: CLINDAMYCIN 900 MG/50 ML PIGGYBACK 50 MG IV (07:36)
[2023-09-26 08:03] LABS: Alanine Aminotransferase 31 IU/L (<50); Albumin 2.5 g/dL (3.5-5.0); Albumin Globulin Ratio 0.7 (1.0-2.8); Alkaline Phosphatase 261 U/L (38-126); Aspartate Aminotransferase 26 IU/L (17-59); BUN Creatinine Ratio 52.9 (6-22); Bilirubin Total 0.6 mg/dL (0.2-1.3); Blood Urea Nitrogen 37 mg/dL (9-20); Carbon Dioxide 15 mmol/L (22-32); Chloride 101 mmol/L (98-107); Estimated Glomerular Filt Rate > 60 mL/min (>60); Globulin 3.7 g/dL (1.7-4.1); HEMOLYSIS 41 (0-50); Potassium 4.7 mmol/L (3.4-5.1); Sodium 126 mmol/L (137-145); Total Protein 6.2 g/dL (6.3-8.2)
[2023-09-26 08:05] LABS: Glucose 602 mg/dL (80-110)
[2023-09-26] MEDS: HYDROMORPHONE 0.5 MG INJ IV (08:32)
[2023-09-26] MEDS: INSULIN REGULAR 100 UNIT/ML 3 ML VIAL 15 UNIT SUBCUT (08:33)
[2023-09-26] MEDS: INSULIN LISPRO 100 UNIT/ML 3ML VIAL SUBCUT (08:34)
[2023-09-26] MEDS: hydrOXYzine pamoate 25 MG CAPSULE 50 MG PO (08:36)
[2023-09-26] MEDS: INSULIN GLARGINE 100 UNIT/ML 3ML PEN 25 UNIT SUBCUT ×2 (08:36→21:46)
--- NOTE | 2023-09-26 09:43 | P.TELICUPN_ITS ---
Subjective Subjective IF CAMERA ACTIVATED, patient seen via real-time interactive audiovisual communication: Camera activated Consent obtained for tele-fish technologist care: Yes Patient Location: ICU Provider location (State): [place] Other participants/roles: Bedside nursing team Dr. Paul Interval history: no acute events overnight Current Medications Current Medications Medications: Home Medications insulin NPH isoph U-100 human 100 unit/mL subcutaneous suspension (Novolin N NPH U-100 Insulin isophane) 40 unit (0.4 mL) SUBCUT BID #10 mL 10/30/22 [Rx Confirmed 09/25/23] gabapentin 300 mg capsule See Rx Instructions .Route .COMPLEX #90 caps 11/30/22 [Rx Confirmed 09/23/23] amlodipine 10 mg tablet 10 mg PO QDAY #90 tabs 06/14/23 [Rx Confirmed 09/23/23] hydrochlorothiazide 50 mg tablet 50 mg PO DAILY 09/23/23 [History Confirmed 09/23/23] hydroxyzine pamoate 50 mg capsule 50 mg PO 3XD 09/23/23 [History Confirmed 09/23/23] lisinopril 40 mg tablet 40 mg PO DAILY 09/23/23 [History Confirmed 09/23/23] Visit Medications (administered) Generic Name Dose Route Start Last Admin Trade Name Freq PRN Reason Stop Dose Admin Acetaminophen 650 mg 09/23/23 20:30 09/26/23 08:33 Acetaminophen 325 Mg Tablet PO 650 mg Q6H YG Administration Gabapentin 300 mg 09/25/23 22:45 09/25/23 22:56 Gabapentin 300 Mg Capsule PO 300 mg BEDTIME YG Administration Hydromorphone HCl 0.5 mg 09/26/23 08:09 09/26/23 08:32 Hydromorphone 0.5 Mg Inj IV 0.5 mg Q4H PRN Administration Pain, Moderate (4-6) Hydroxyzine Pamoate 50 mg 09/25/23 22:45 09/26/23 08:36 Hydroxyzine Pamoate 25 Mg Capsule PO 50 mg TID YG Administration Clindamycin Phosphate 900 mg in 50 mls @ 50 mls/hr 09/23/23 23:38 09/26/23 07:36 Cleocin IV 50 mls/hr Q8H YG Administration NOREPINEPHRINE BITARTRATE/D5W 4 mg in 250 mls @ 78.84 mls/hr 09/24/23 21:15 09/25/23 07:02 Levophed IV 0 mcg/kg/min TITRATE YG 0 mls/hr Infusion 0.24 MCG/KG/MIN Ceftriaxone Sodium 2,000 mg/ 100 mls @ 200 mls/hr 09/25/23 21:00 09/25/23 21:13 Sodium Chloride IV Infused Q24H YG Infusion Vancomycin HCl 1,250 mg in 250 mls @ 250 mls/hr 09/25/23 19:00 09/26/23 06:04 Vancomycin IV 250 mls/hr Q12H YG Administration Insulin Glargine 25 unit 09/26/23 09:00 09/26/23 08:36 Insulin Glargine 100 Unit/Ml 3ml Pen SUBCUT 25 unit BID YG Administration Insulin Human Lispro 0 unit 09/25/23 11:45 09/26/23 08:34 Insulin Lispro 100 Unit/Ml 3ml Vial SUBCUT 12 unit ACHS YG Administration Protocol Oxycodone HCl 5 mg 09/24/23 08:11 09/26/23 06:06 Oxycodone Ir 5 Mg Tablet PO 5 mg Q4HR PRN Administration Pain, Moderate (4-6) Objective Labs 09/26/23 05:30 09/26/23 07:45 Labs: Laboratory Results - last 24 hr 09/23/23 09/23/23 09/23/23 12:54 13:15 13:52 WBC RBC Hgb Hct MCV MCH MCHC RDW Plt Count Neut % (Auto) Lymph % (Auto) Callahan % (Auto) Eos % (Auto) Baso % (Auto) Lymph # (Auto) Callahan # (Auto) Baso # (Auto) Total Counted Seg Neutrophils % Monocytes % (Manual) Neutrophils # (Manual) Plt Morphology Comment RBC Morphology Anisocytosis Target Cells Sodium Potassium Chloride Carbon Dioxide BUN Creatinine Estimated GFR BUN/Creatinine Ratio Glucose Lactate 2.8 H Calcium Total Bilirubin AST ALT Alkaline Phosphatase Total Protein Albumin Globulin Albumin/Globulin Ratio A.calcoaceticus-baumannii cmplx PCR Not detected Bacteroides fragilis Not detected Hedy albicans (PCR) Not detected Hedy auris (PCR) Not detected C. glabrata (PCR) Not detected C. krusei (PCR) Not detected C. parapsilosis (PCR) Not detected C. tropicalis (PCR) Not detected C. neoform/gattii (PCR) Not detected Enterobacterales (PCR) Not detected E. cloacae complex PCR Not detected Enterococc faecalis PCR Not detected Enterococc faecium PCR Not detected E. coli (PCR) Not detected H. influenzae (PCR) Not detected Klebsiella aerogenes (PCR) Not detected Klebsiella oxytoca PCR Not detected Klebsiella pneumoniae Not detected List. monocytogenes PCR Not detected N. meningitidis (PCR) Not detected Proteus species (PCR) Not detected Salmonella spp. (PCR) Not detected Serratia marcescens PCR Not detected Staphylococcus sp PCR Not detected Staph aureus (PCR) Not detected mecA/C & MREJ Resist Gene Not applicable mecA/C-Methicil Resis Gene Not applicable mcr-1 Colistin Res Gene PCR Not applicable Staph epidermidis (PCR) Not detected Staph lugdunensis PCR Not detected S. maltophilia (PCR) Not detected Streptococcus sp PCR Detected Group A Strep (PCR) Not detected Strep agalactiae (PCR) Not detected Strep pneumoniae (PCR) Not detected P. aeruginosa (PCR) Not detected Cory/B-Vanco Res Genes Not applicable blaIMP Car res Gene PCR Not applicable KPC-Carbap Res Gene PCR Not applicable blaNDM Car Res Gene PCR Not applicable OXA-48 Carbapenem Resis Gene (PCR) Not applicable blaVIM Car Res Gene PCR Not applicable CTX-M Gene Resistance (PCR) Not applicable Blood Type O Positive Antibody Screen Negative Crossmatch See Detail 09/26/23 09/26/23 05:30 07:45 WBC 31.2 H* RBC 3.91 L Hgb 9.3 L Hct 28.5 L MCV 72.9 L D MCH 23.8 L MCHC 32.6 RDW 22.8 H Plt Count 605 H Neut % (Auto) Not Reportable Lymph % (Auto) Not Reportable Callahan % (Auto) Not Reportable Eos % (Auto) Not Reportable Baso % (Auto) Not Reportable Lymph # (Auto) Not Reportable Callahan # (Auto) Not Reportable Baso # (Auto) Not Reportable Total Counted 100 Seg Neutrophils % 95.0 H Monocytes % (Manual) 5.0 Neutrophils # (Manual) 94233 H Plt Morphology Comment RBC Morphology See below Anisocytosis 1+ H Target Cells 1+ H Sodium 126 L Potassium 4.7 Chloride 101 Carbon Dioxide 15 L BUN 37 H Creatinine 0.70 Estimated GFR > 60 BUN/Creatinine Ratio 52.9 H Glucose 602 H* D Lactate Calcium 8.0 L Total Bilirubin 0.6 AST 26 ALT 31 Alkaline Phosphatase 261 H D Total Protein 6.2 L Albumin 2.5 L Globulin 3.7 Albumin/Globulin Ratio 0.7 L A.calcoaceticus-baumannii cmplx PCR Bacteroides fragilis Hedy albicans (PCR) Hedy auris (PCR) C. glabrata (PCR) C. krusei (PCR) C. parapsilosis (PCR) C. tropicalis (PCR) C. neoform/gattii (PCR) Enterobacterales (PCR) E. cloacae complex PCR Enterococc faecalis PCR Enterococc faecium PCR E. coli (PCR) H. influenzae (PCR) Klebsiella aerogenes (PCR) Klebsiella oxytoca PCR Klebsiella pneumoniae List. monocytogenes PCR N. meningitidis (PCR) Proteus species (PCR) Salmonella spp. (PCR) Serratia marcescens PCR Staphylococcus sp PCR Staph aureus (PCR) mecA/C & MREJ Resist Gene mecA/C-Methicil Resis Gene mcr-1 Colistin Res Gene PCR Staph epidermidis (PCR) Staph lugdunensis PCR S. maltophilia (PCR) Streptococcus sp PCR Group A Strep (PCR) Strep agalactiae (PCR) Strep pneumoniae (PCR) P. aeruginosa (PCR) Cory/B-Vanco Res Genes blaIMP Car res Gene PCR KPC-Carbap Res Gene PCR blaNDM Car Res Gene PCR OXA-48 Carbapenem Resis Gene (PCR) blaVIM Car Res Gene PCR CTX-M Gene Resistance (PCR) Blood Type Antibody Screen Crossmatch Exam Vital Signs (past 8 hours): - 09/26/23 02:00 09/26/23 02:00 09/26/23 04:00 Temperature 96.8 F L 97.2 F L Pulse Rate 92 H 97 H Respiratory Rate 19 30 H Blood Pressure 117/57 L Pulse Oximetry 90 L 92 Oxygen Flow Rate 0 09/26/23 04:00 09/26/23 06:00 09/26/23 06:00 Temperature 97.2 F L Pulse Rate 105 H Respiratory Rate 34 H Blood Pressure 115/57 L 119/60 Pulse Oximetry 95 Oxygen Flow Rate 0 0 09/26/23 08:00 09/26/23 08:01 09/26/23 08:01 Temperature 98.4 F 99.0 F Pulse Rate 120 H 120 H Respiratory Rate 38 H 39 H Blood Pressure 113/54 L Pulse Oximetry 95 95 Oxygen Flow Rate Oxygen Delivery Method Nasal Cannula Oxygen Flow Rate 0 Quality TeleICU VTE Deep Vein Thrombosis/Pulmonary Embolism Present on Admission: No Assessment & Plan Assessment & Plan narrative: patient seen on daily rounds chart/labs/imaging reviewed case d/w 67 year old male with PMHx of admitted to ICU with severe sepsis with septic shock UTI osteomyylitis gluteal decubitus ulcer/necrotizing fasciitis anemia thrombocytosis currently afebrile, HD stable, HR 110-120s adequate urine output wbc 31 hgb 9.1 glucose 600 bcx k.pneumonia, strep anguionous plan -neurochecks/seizure precautions -check Head CT if confusion persists, likely septic/hyperglycemia related -minimize opiods -continue abx,, ok with rocephin -check ekg -bolus 500cc ivf, re-eval need for more volume -monitor ins/outs -replace lytes prn -keep glucose 140-180s, start on lantus, can add insulin drip if glucose persists over 250x2 -gi/dvt ppx -please call eICU if condition changes total ccm time 45 min
[2023-09-26] MEDS: LACTATED RINGERS 500 ML 100 ML IV (10:54)
[2023-09-26] MEDS: ENOXAPARIN 40 MG/0.4 ML SYRINGE SUBCUT (10:54)
[2023-09-26 11:30] LABS: Glucose 578 mg/dL (80-110)
[2023-09-26] MEDS: INSULIN DRIP PREMIX 100 UNIT/100 ML PLAST..BAG 6 UNIT IV (11:47)
[2023-09-26] MEDS: DEXTROSE 5%-0.45% NS 1,000 ML 150 ML IV (11:53)
[2023-09-26 13:24] LABS: Lactate (Lactic Acid) 2.6 mmol/L (0.7-2.1)
[2023-09-26 13:26] LABS: Glucose 563 mg/dL (80-110)
--- NOTE | 2023-09-26 13:27 | PC.NURSE ---
Reported pt orientation status, oliguria, and hyperglycemia to provider during tele-ICU am rounds. Due to blood sugars >500, insulin drip (non-DKA) started. Per tele-ICU provider, 12-lead EKG done - ST, and LR bolus initiated. Paused LR bolus when insulin gtt and D5 1/2NS @ 150 started (non-DKA protocol). Did complete CHG bed bath, Renteria care, and wound care. Pt bridged in bed with heels floated, frequent turns, VSS.
--- NOTE | 2023-09-26 13:37 | CM.DPNOTE ---
DCP Note According to Dr Paul, patient transferring to [facility] for MARIAH, [place], ongoing wound care and management of other acute needs. JW
[2023-09-26 14:38] LABS: Glucose 508 mg/dL (80-110)
[2023-09-26] MEDS: metroNIDAZOLE 500 MG TABLET PO (15:11)
[2023-09-26 15:14] LABS: Reflexed Lactate in 2 Hours Y
[2023-09-26 15:41] LABS: Lactate 2HR (Lactic Acid Rflx) 4.5 mmol/L (0.7-2.1)
[2023-09-26] MEDS: LACTATED RINGERS 1,000 ML 1000 ML IV (16:09)
--- NOTE | 2023-09-26 16:53 | PM.CN ---
History of Present Illness Consult details Date Patient Seen: 09/26/23 Time Patient Seen: 15:45 Chief complaint: Fall, Weakness Narrative: The patient is a 67-year-old male paraplegic with diabetes and hypertension who was admitted to the hospital September 23 with sepsis. He reportedly fell out of his wheelchair several days prior to admission and was found lying on the floor. When he presented he was noted to have a very large sacral decubitus. He was admitted to the intensive care unit and started on broad spectrum IV antibiotics and vasopressors were initiated. CT scan of the pelvis showed a very large open wound involving the left buttock extending to the ischium. Surgical consultation was then obtained. The patient was brought to the operating room September 25 2023 and underwent extensive surgical debridement by Dr. Eubanks and the wound was packed with Kerlix. He has been off vasopressors for the past 24 hours however the patient was hypertensive at the time of my evaluation. He continues to have severe leukocytosis. Plans are being made for diverting colostomy when the patient stabilize his. There are also plans to transfer him to [facility] when a bed is available. Meds Home Medications and Allergies Home Medications Medication Instructions Recorded Confirmed Type insulin NPH isoph U-100 human 100 40 unit (0.4 mL) SUBCUT BID #10 mL 10/30/22 09/25/23 Rx unit/mL subcutaneous suspension (Novolin N NPH U-100 Insulin isophane) gabapentin 300 mg capsule See Rx Instructions .Route 11/30/22 09/23/23 Rx .COMPLEX #90 caps amlodipine 10 mg tablet 10 mg PO QDAY #90 tabs 06/14/23 09/23/23 Rx hydrochlorothiazide 50 mg tablet 50 mg PO DAILY 09/23/23 09/23/23 History hydroxyzine pamoate 50 mg capsule 50 mg PO 3XD 09/23/23 09/23/23 History lisinopril 40 mg tablet 40 mg PO DAILY 09/23/23 09/23/23 History Allergies Allergy/AdvReac Type Severity Reaction Status Date / Time latex Allergy Intermediate Rash Verified 07/12/23 13:26 Review of Systems Review of Systems Narrative: Unable to obtain Exam Vital Signs (past 8 hours): - 09/26/23 09:41 09/26/23 09:41 09/26/23 10:00 Temperature 99.0 F 98.8 F Pulse Rate 117 H 113 H Respiratory Rate 29 H 29 H Blood Pressure 101/57 L Pulse Oximetry 92 94 Oxygen Delivery Method 09/26/23 10:00 09/26/23 11:57 09/26/23 11:57 Temperature 97.7 F Pulse Rate 113 H Respiratory Rate 25 H Blood Pressure 104/60 87/50 L Pulse Oximetry 93 Oxygen Delivery Method 09/26/23 11:58 09/26/23 11:58 09/26/23 12:00 Temperature 98.1 F 98.2 F Pulse Rate 113 H 113 H Respiratory Rate 26 H 26 H Blood Pressure 97/50 L Pulse Oximetry 93 94 Oxygen Delivery Method 09/26/23 12:00 09/26/23 12:00 09/26/23 12:12 Temperature 98.6 F Pulse Rate 111 H Respiratory Rate 26 H Blood Pressure 101/51 L Pulse Oximetry 92 Oxygen Delivery Method Room Air 09/26/23 12:12 09/26/23 12:15 09/26/23 12:15 Temperature 98.4 F Pulse Rate 109 H Respiratory Rate 23 Blood Pressure 90/55 L 98/55 L Pulse Oximetry 90 L Oxygen Delivery Method 09/26/23 12:30 09/26/23 12:30 09/26/23 12:45 Temperature 98.2 F Pulse Rate 109 H Respiratory Rate 23 Blood Pressure 95/51 L 104/57 L Pulse Oximetry 87 L Oxygen Delivery Method 09/26/23 12:45 09/26/23 13:01 09/26/23 13:01 Temperature 98.2 F 98.2 F Pulse Rate 109 H 123 H Respiratory Rate 20 40 H Blood Pressure 147/80 H Pulse Oximetry 84 L 92 Oxygen Delivery Method 09/26/23 13:15 09/26/23 13:15 09/26/23 13:31 Temperature 98.2 F Pulse Rate 124 H Respiratory Rate 36 H Blood Pressure 136/74 132/80 Pulse Oximetry 91 Oxygen Delivery Method 09/26/23 13:31 09/26/23 13:45 09/26/23 13:45 Temperature 98.6 F 98.8 F Pulse Rate 127 H 125 H Respiratory Rate 33 H 33 H Blood Pressure 128/79 Pulse Oximetry 92 88 L Oxygen Delivery Method 09/26/23 14:00 09/26/23 14:01 09/26/23 14:01 Temperature 99.3 F 99.3 F Pulse Rate 118 H 117 H Respiratory Rate 25 H 25 H Blood Pressure 150/87 H Pulse Oximetry 89 L 89 L Oxygen Delivery Method 09/26/23 14:30 09/26/23 15:00 09/26/23 15:45 Temperature 99.5 F 99.7 F H 99.5 F Pulse Rate 115 H 114 H 116 H Respiratory Rate 23 22 23 Blood Pressure 96/50 L 92/50 L 99/51 L Pulse Oximetry 92 93 92 Oxygen Delivery Method 09/26/23 15:45 09/26/23 16:00 09/26/23 16:00 Temperature 99.5 F 99.5 F Pulse Rate 116 H 113 H Respiratory Rate 23 24 Blood Pressure 84/46 L Pulse Oximetry 92 91 Oxygen Delivery Method Oxygen Delivery Method Room Air Oxygen Flow Rate 0 Const Other: Well-developed well-nourished male is somnolent and unable to provide history Skin Other: Very large stage IV sacral decubitus that extends to the left buttock, ischium, and left hip and contains necrotic tissue. No clinical evidence for necrotizing fasciitis.. Stage III pressure ulcer left hip. Necrotic skin proximal sacrum and lower back. Objective Labs 09/26/23 05:30 09/26/23 14:12 Labs: Laboratory Results - last 24 hr 09/23/23 09/23/23 09/26/23 12:54 13:15 05:30 WBC 31.2 H* RBC 3.91 L Hgb 9.3 L Hct 28.5 L MCV 72.9 L D MCH 23.8 L MCHC 32.6 RDW 22.8 H Plt Count 605 H Neut % (Auto) Not Reportable Lymph % (Auto) Not Reportable [place] % (Auto) Not Reportable Eos % (Auto) Not Reportable Baso % (Auto) Not Reportable Lymph # (Auto) Not Reportable [place] # (Auto) Not Reportable Baso # (Auto) Not Reportable Total Counted 100 Seg Neutrophils % 95.0 H Monocytes % (Manual) 5.0 Neutrophils # (Manual) 38649 H Plt Morphology Comment RBC Morphology See below Anisocytosis 1+ H Target Cells 1+ H Sodium Potassium Chloride Carbon Dioxide BUN Creatinine Estimated GFR BUN/Creatinine Ratio Glucose Lactate 2.8 H Calcium Total Bilirubin AST ALT Alkaline Phosphatase Total Protein Albumin Globulin Albumin/Globulin Ratio A.calcoaceticus-baumannii cmplx PCR Not detected Bacteroides fragilis Not detected Hedy albicans (PCR) Not detected Hedy auris (PCR) Not detected C. glabrata (PCR) Not detected C. krusei (PCR) Not detected C. parapsilosis (PCR) Not detected C. tropicalis (PCR) Not detected C. neoform/gattii (PCR) Not detected Enterobacterales (PCR) Not detected E. cloacae complex PCR Not detected Enterococc faecalis PCR Not detected Enterococc faecium PCR Not detected E. coli (PCR) Not detected H. influenzae (PCR) Not detected Klebsiella aerogenes (PCR) Not detected Klebsiella oxytoca PCR Not detected Klebsiella pneumoniae Not detected List. monocytogenes PCR Not detected N. meningitidis (PCR) Not detected Proteus species (PCR) Not detected Salmonella spp. (PCR) Not detected Serratia marcescens PCR Not detected Staphylococcus sp PCR Not detected Staph aureus (PCR) Not detected mecA/C & MREJ Resist Gene Not applicable mecA/C-Methicil Resis Gene Not applicable mcr-1 Colistin Res Gene PCR Not applicable Staph epidermidis (PCR) Not detected Staph lugdunensis PCR Not detected S. maltophilia (PCR) Not detected Streptococcus sp PCR Detected Group A Strep (PCR) Not detected Strep agalactiae (PCR) Not detected Strep pneumoniae (PCR) Not detected P. aeruginosa (PCR) Not detected Cory/B-Vanco Res Genes Not applicable blaIMP Car res Gene PCR Not applicable KPC-Carbap Res Gene PCR Not applicable blaNDM Car Res Gene PCR Not applicable OXA-48 Carbapenem Resis Gene (PCR) Not applicable blaVIM Car Res Gene PCR Not applicable CTX-M Gene Resistance (PCR) Not applicable 09/26/23 09/26/23 09/26/23 07:45 11:10 13:00 WBC RBC Hgb Hct MCV MCH MCHC RDW Plt Count Neut % (Auto) Lymph % (Auto) [place] % (Auto) Eos % (Auto) Baso % (Auto) Lymph # (Auto) [place] # (Auto) Baso # (Auto) Total Counted Seg Neutrophils % Monocytes % (Manual) Neutrophils # (Manual) Plt Morphology Comment RBC Morphology Anisocytosis Target Cells Sodium 126 L Potassium 4.7 Chloride 101 Carbon Dioxide 15 L BUN 37 H Creatinine 0.70 Estimated GFR > 60 BUN/Creatinine Ratio 52.9 H Glucose 602 H* D 578 H* 563 H* Lactate 2.6 H Calcium 8.0 L Total Bilirubin 0.6 AST 26 ALT 31 Alkaline Phosphatase 261 H D Total Protein 6.2 L Albumin 2.5 L Globulin 3.7 Albumin/Globulin Ratio 0.7 L A.calcoaceticus-baumannii cmplx PCR Bacteroides fragilis Hedy albicans (PCR) Hedy auris (PCR) C. glabrata (PCR) C. krusei (PCR) C. parapsilosis (PCR) C. tropicalis (PCR) C. neoform/gattii (PCR) Enterobacterales (PCR) E. cloacae complex PCR Enterococc faecalis PCR Enterococc faecium PCR E. coli (PCR) H. influenzae (PCR) Klebsiella aerogenes (PCR) Klebsiella oxytoca PCR Klebsiella pneumoniae List. monocytogenes PCR N. meningitidis (PCR) Proteus species (PCR) Salmonella spp. (PCR) Serratia marcescens PCR Staphylococcus sp PCR Staph aureus (PCR) mecA/C & MREJ Resist Gene mecA/C-Methicil Resis Gene mcr-1 Colistin Res Gene PCR Staph epidermidis (PCR) Staph lugdunensis PCR S. maltophilia (PCR) Streptococcus sp PCR Group A Strep (PCR) Strep agalactiae (PCR) Strep pneumoniae (PCR) P. aeruginosa (PCR) Cory/B-Vanco Res Genes blaIMP Car res Gene PCR KPC-Carbap Res Gene PCR blaNDM Car Res Gene PCR OXA-48 Carbapenem Resis Gene (PCR) blaVIM Car Res Gene PCR CTX-M Gene Resistance (PCR) 09/26/23 09/26/23 14:12 15:23 WBC RBC Hgb Hct MCV MCH MCHC RDW Plt Count Neut % (Auto) Lymph % (Auto) [place] % (Auto) Eos % (Auto) Baso % (Auto) Lymph # (Auto) [place] # (Auto) Baso # (Auto) Total Counted Seg Neutrophils % Monocytes % (Manual) Neutrophils # (Manual) Plt Morphology Comment RBC Morphology Anisocytosis Target Cells Sodium Potassium Chloride Carbon Dioxide BUN Creatinine Estimated GFR BUN/Creatinine Ratio Glucose 508 H* Lactate 4.5 H* Calcium Total Bilirubin AST ALT Alkaline Phosphatase Total Protein Albumin Globulin Albumin/Globulin Ratio A.calcoaceticus-baumannii cmplx PCR Bacteroides fragilis Hedy albicans (PCR) Hedy auris (PCR) C. glabrata (PCR) C. krusei (PCR) C. parapsilosis (PCR) C. tropicalis (PCR) C. neoform/gattii (PCR) Enterobacterales (PCR) E. cloacae complex PCR Enterococc faecalis PCR Enterococc faecium PCR E. coli (PCR) H. influenzae (PCR) Klebsiella aerogenes (PCR) Klebsiella oxytoca PCR Klebsiella pneumoniae List. monocytogenes PCR N. meningitidis (PCR) Proteus species (PCR) Salmonella spp. (PCR) Serratia marcescens PCR Staphylococcus sp PCR Staph aureus (PCR) mecA/C & MREJ Resist Gene mecA/C-Methicil Resis Gene mcr-1 Colistin Res Gene PCR Staph epidermidis (PCR) Staph lugdunensis PCR S. maltophilia (PCR) Streptococcus sp PCR Group A Strep (PCR) Strep agalactiae (PCR) Strep pneumoniae (PCR) P. aeruginosa (PCR) Cory/B-Vanco Res Genes blaIMP Car res Gene PCR KPC-Carbap Res Gene PCR blaNDM Car Res Gene PCR OXA-48 Carbapenem Resis Gene (PCR) blaVIM Car Res Gene PCR CTX-M Gene Resistance (PCR) [facility] Medical History Paraplegia Chronic pain Hypertension Diabetes mellitus Urinary tract infection Scrotal mass Social History household members: none Tobacco & Substance Use Smoking Status: Former smoker alcohol intake: former substance use type: does not use Assessment & Plan Assessment and plan (1) Sacral decubitus ulcer, stage IV: Status: Acute (2) Decubitus ulcer of left hip, stage 3: Status: Acute Assessment & Plan narrative: Patient has very large sacral decubitus involving the left buttock extending to the ischium and left hip area, stage III ulcer left hip, necrotic skin proximal sacrum and lower back. Recommend further surgical debridement, wet to wet dressing changes with Dakin's soaked kerlex, pressure offloading, nutritional support, IV antibiotic therapy. We will be happy to see the patient at the wound center to manage his wound after discharge. Hospital records, wound center records, labs, and imaging studies were personally reviewed. Instructions for dressing changes personally discussed with the patient's nurse. Time Spent With Patient Time with patient: 50 to 69 minutes with 50% spent counseling/coordinating care
[2023-09-26] MEDS: INSULIN DRIP PREMIX 100 UNIT/100 ML PLAST..BAG 24 UNIT IV (17:16)
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
--- NOTE | 2023-09-26 17:47 | PC.NURSE ---
Shift Note Assumed care of pt at 1300. Pt is drowsy, awakens to voice, able to answer some questions but is very fatigued and forgetful. Placed on 2L NC due to sats decreasing to 88-89%. On insulin gtt, titrating per non-DKA protocol with D5 1/2 NS 150 ml/hr infusing. Dressing to left buttock/sacrum changed by Dr. Valdez and wound care nurse. Kerlex moistened with Dakin's solution packed into wound, more kerlex with Dakin's placed into shallow ulceration on left hip/buttock. Covered with ABD pad and allevyn dressings. Order received for daily dressing changes. Pt tolerated well. Turning q2 hrs, currently bridged. Critical lactate of 4.5 resulted, Dr. Paul and Dr. Holland notified, order received from Dr. Holland for 1L LR bolus which was done. Echo completed at bedside. Family currently at bedside, pt is interactive. Call light within reach.
[2023-09-26 18:04] LABS: Lactate (Lactic Acid) 4.1 mmol/L (0.7-2.1)
[2023-09-26] MEDS: LACTATED RINGERS 1,000 ML 100 ML IV (18:29)
[2023-09-26] MEDS: MEROPENEM 2 GM in SODIUM CHLORIDE 0.9% 100 ML IV (18:35)
[2023-09-26 19:45] LABS: Reflexed Lactate in 2 Hours Y
[2023-09-26 20:12] LABS: Alanine Aminotransferase 25 IU/L (<50); Albumin 2.2 g/dL (3.5-5.0); Albumin Globulin Ratio 0.6 (1.0-2.8); Alkaline Phosphatase 152 U/L (38-126); Aspartate Aminotransferase 15 IU/L (17-59); BUN Creatinine Ratio 38.8 (6-22); Bilirubin Total 0.3 mg/dL (0.2-1.3); Blood Urea Nitrogen 38 mg/dL (9-20); Carbon Dioxide 19 mmol/L (22-32); Chloride 102 mmol/L (98-107); Estimated Glomerular Filt Rate > 60 mL/min (>60); Globulin 3.5 g/dL (1.7-4.1); Glucose 162 mg/dL (80-110); HEMOLYSIS < 15 (0-50); Potassium 4.1 mmol/L (3.4-5.1); Sodium 129 mmol/L (137-145); Total Protein 5.7 g/dL (6.3-8.2)
[2023-09-26 20:24] LABS: Lactate 2HR (Lactic Acid Rflx) 2.6 mmol/L (0.7-2.1)
--- NOTE | 2023-09-26 20:36 | PM.ICURNDS ---
- Date Patient Seen: 09/26/23 Time Patient Seen: 20:36 :: This patient was seen via real time interactive two-way audiovisual telecommunication. Note: no acute issues druing the day HR improved urine output adeqaute glucose improved on insulin drip. will restart long acting and sliding scale can dc insulin drip continue ivf repeat lactate in am please call eICU if condition changes
[2023-09-26] MEDS: GABAPENTIN 300 MG CAPSULE PO (21:46)
--- NOTE | 2023-09-26 23:58 | PC.NURSE ---
Blood sugar ~1999 was 155. Tele-ICU doc ordered to stop insulin drip and transition back to Lantus and sliding scale.
[2023-09-27] VITALS (38 sets, daily range): BP systolic 87–162; BP diastolic 53–96; PULSE 88–120; RESP 20–52; TEMP 36.1–38.6; O2SAT 83–100
[2023-09-27] MEDS: MEROPENEM 2 GM in SODIUM CHLORIDE 0.9% 100 ML IV ×2 (02:27→11:32)
[2023-09-27] MEDS: LACTATED RINGERS 1,000 ML 100 ML IV ×2 (04:39→13:49)
[2023-09-27 05:56] LABS: Add Manual Diff / Slide Review NO; Basophils Absolute Auto 200 /uL (0-100); Basophils Percent Auto 0.7 % (0-2); Eosinophils Absolute Auto 200 /uL (0-450); Eosinophils Percent Auto 0.9 % (2-4); Hematocrit 25.5 % (41-53); Hemoglobin 8.5 g/dL (13.5-17.5); Lymphocytes Absolute Auto 8000 /uL (1100-4500); Lymphocytes Percent Auto 33.2 % (25-40); Mean Corpuscular HGB Conc 33.2 % (30-36); Mean Corpuscular Hemoglobin 24.2 PG (26-34); Mean Corpuscular Volume 72.7 fL (80-100); Monocytes Absolute Auto 1200 /uL (0-900); Monocytes Percent Auto 5.1 % (3-14); Neutrophils Absolute Auto 14500 /uL (1500-7000); Neutrophils Percent Auto 60.1 % (50-75); Platelet Count 613 X10^3/uL (150-400); White Blood Cell Count 24.1 X10^3/uL (4.5-11.0)
[2023-09-27 06:07] LABS: Alanine Aminotransferase 23 IU/L (<50); Albumin 2.2 g/dL (3.5-5.0); Albumin Globulin Ratio 0.6 (1.0-2.8); Alkaline Phosphatase 166 U/L (38-126); Aspartate Aminotransferase 20 IU/L (17-59); Bilirubin Total 0.3 mg/dL (0.2-1.3); Blood Urea Nitrogen 39 mg/dL (9-20); Carbon Dioxide 19 mmol/L (22-32); Chloride 104 mmol/L (98-107); Estimated Glomerular Filt Rate > 60 mL/min (>60); Globulin 3.4 g/dL (1.7-4.1); Glucose 246 mg/dL (80-110); HEMOLYSIS < 15 (0-50); Potassium 4.3 mmol/L (3.4-5.1); Sodium 129 mmol/L (137-145); Total Protein 5.6 g/dL (6.3-8.2)
[2023-09-27] MEDS: ACETAMINOPHEN 325 MG TABLET 650 MG PO ×2 (06:20→15:15)
[2023-09-27 06:36] LABS: Vancomycin Trough 28.7 ug/mL (10-20)
[2023-09-27] MEDS: OXYCODONE IR 5 MG TABLET PO (06:43)
[2023-09-27 06:49] LABS: Anisocytosis 2+; Target Cells 1+
[2023-09-27] MEDS: VANCOMYCIN 1,250 MG/250 ML PIGGYBACK 250 MG IV (07:37)
[2023-09-27] MEDS: INSULIN GLARGINE 100 UNIT/ML 3ML PEN 25 UNIT SUBCUT (08:01)
[2023-09-27] MEDS: ENOXAPARIN 40 MG/0.4 ML SYRINGE SUBCUT (08:01)
[2023-09-27] MEDS: INSULIN LISPRO 100 UNIT/ML 3ML VIAL SUBCUT ×3 (08:01→17:11)
[2023-09-27] MEDS: HYDROMORPHONE 0.5 MG INJ IV ×3 (09:04→18:00)
[2023-09-27] MEDS: guaiFENesin ER 600 MG TAB PO (09:15)
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
--- NOTE | 2023-09-27 15:52 | DI.RAD.S_ITS ---
PROCEDURE: XR CHEST 1V INDICATIONS: hypoxia TECHNIQUE: One view of the chest was acquired. COMPARISON: [facility], CR, XR CHEST 1V, 09/24/2023, 15:26. FINDINGS: Surgical changes and devices: Right IJ central venous catheter terminates in the upper SVC. Partially visualized fusion hardware in the thoracic spine. Lungs and pleura: New left basilar consolidation and moderate left pleural effusion. No right-sided pleural effusion. No pneumothorax bilaterally. Mild interstitial prominence. Mediastinum: Heart and mediastinum are stable. Aortic arch is calcified, indicating atherosclerosis. Bones and chest wall: No suspicious bony lesions. Overlying soft tissues appear unremarkable. IMPRESSION: 1. New left basilar consolidation with moderate left pleural effusion. Findings are suggestive aspiration and/or pneumonia. 2. Mild interstitial prominence which may reflect early pulmonary edema. Dictated by: Olya Peters M.D. on 09/27/2023 at 16:28 Approved by: Olya Peters M.D. on 09/27/2023 at 16:31
--- NOTE | 2023-09-27 16:46 | PC.NURSE ---
Patient has brief episodes of restlessness and anxiety punctuated with quick movements in bed. Difficulty offloading pressure on wound due to patient settling right back onto it. Dressing on and around wound often partially removed, peeling, or otherwise compromised. Dressings reapplied with a combination of abdominal pads, allevyns, and coversites. Will continue to turn patient, offload pressure, and protect wound as best as possible.
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
[2023-09-27] MEDS: FUROSEMIDE 40 MG/4 ML VIAL 20 MG IV (16:57)
== END 2023-09-27 18:18 | disposition short-term general hospital (02) | DRG 853 ==
LOC: ED 18:27 → AC 18:33 → ICU 18:55
PROVIDERS: Internal Medicine Critical Care Medicine; Specialist; Student in an Organized Health Care Education/Training Program; Surgery; Admitting Provider Internal Medicine; Emergency Provider Emergency Medicine; PCP Family Medicine; Referring Provider Emergency Medicine; Visit Provider Internal Medicine
PROC: 0JB90ZZ Excision of Buttock Subcutaneous Tissue and Fascia, Open Approach (ICD-10-PCS; principal; 2023-09-25 13:00)
DX: A41.9 Sepsis, unspecified organism (principal); G93.41 Metabolic encephalopathy; L89.154 Pressure ulcer of sacral region, stage 4; L89.223 Pressure ulcer of left hip, stage 3; R65.21 Severe sepsis with septic shock; J18.9 Pneumonia, unspecified organism; J96.01 Acute respiratory failure with hypoxia; G82.20 Paraplegia, unspecified; N39.0 Urinary tract infection, site not specified; E87.20 Acidosis, unspecified; M46.28 Osteomyelitis of vertebra, sacral and sacrococcygeal region; E11.65 Type 2 diabetes mellitus with hyperglycemia; D64.9 Anemia, unspecified; E86.0 Dehydration; K56.41 Fecal impaction; B95.4 Other streptococcus as the cause of diseases classified elsewhere; B96.1 Klebsiella pneumoniae [K. pneumoniae] as the cause of diseases classified elsewhere; I10 Essential (primary) hypertension; G89.29 Other chronic pain; Z79.4 Long term (current) use of insulin; Z87.891 Personal history of nicotine dependence; Z11.52 Encounter for screening for COVID-19
CPT/HCPCS: 36415; 36430; 36592; 36600; 70450; 71045; 71275; 72193; 80048; 80053; 80202; 81001; 82550; 82805; 82947; 82962; 83605; 83735; 84145; 84484; 85007; 85025; 85379; 85610; 85730; 86850; 86900; 86901; 87040; 87077; 87086; 87154; 87186; 87205; 87635; 87797; 93005; 93010; 93306; 96361; 96365; 96367; 96368; 96375; 96376; 99233; 99285; 99291; 99292; C9803; P9016; J0131; J0692; J0696; J1100; J1170; J1650; J1815; J1940; J2060; J2185; J2250; J2405; J2704; J3010; J7613; Q9957; Q9967

== ENCOUNTER 2024-01-28 12:24 | Emergency (ER) | payer OTHER, SELFPAY ==
[2023-09-23 18:38] VITALS: BMI 28.8
[2024-01-28] VITALS (47 sets, daily range): BP systolic 104–161; BP diastolic 56–98; PULSE 90–112; RESP 18–22; TEMP 36.6–36.9; O2SAT 84–99; BMI 25.4
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
--- NOTE | 2024-01-28 12:49 | DI.RAD.S_ITS ---
PROCEDURE: XR CHEST 1V INDICATIONS: suspected sepsis TECHNIQUE: One view of the chest was acquired. COMPARISON: [facility], CR, XR CHEST 1V, 09/27/2023, 15:50. FINDINGS: Surgical changes and devices: Fractured right superior spinal stabilization ramírez. Lungs and pleura: Lungs are clear. No pleural effusions or pneumothorax. Mediastinum: Mediastinal contours appear normal. Heart size is normal. Bones and chest wall: No suspicious bony lesions. Overlying soft tissues appear unremarkable. IMPRESSION: 1. No acute process. 2. Fractured hardware as above. Dictated by: Marianna Valdovinos M.D. on 01/28/2024 at 13:48 Approved by: Marianna Valdovinos M.D. on 01/28/2024 at 13:49
[2024-01-28] MEDS: SODIUM CHLORIDE 0.9% 1,000 ML 1000 ML IV (13:27)
[2024-01-28 13:35] LABS: Add Manual Diff / Slide Review NO; Basophils Absolute Auto 100 /uL (0-100); Basophils Percent Auto 0.7 % (0-2); Eosinophils Absolute Auto 100 /uL (0-450); Hematocrit 27.4 % (41-53); Lymphocytes Absolute Auto 900 /uL (1100-4500); Lymphocytes Percent Auto 7.2 % (25-40); Mean Corpuscular HGB Conc 32.7 % (30-36); Mean Corpuscular Hemoglobin 22.4 PG (26-34); Mean Corpuscular Volume 68.6 fL (80-100); Monocytes Absolute Auto 1200 /uL (0-900); Monocytes Percent Auto 9.4 % (3-14); Neutrophils Absolute Auto 10200 /uL (1500-7000); Neutrophils Percent Auto 81.7 % (50-75); Platelet Count 798 X10^3/uL (150-400); White Blood Cell Count 12.4 X10^3/uL (4.5-11.0)
[2024-01-28 13:46] LABS: INR 1.3 (0.9-1.3); Prothrombin Time 15.5 SECONDS (9.4-12.5)
[2024-01-28 13:49] LABS: PTT Partial Thromboplastin Tim 33 SECONDS (25.1-36.5)
--- NOTE | 2024-01-28 13:50 | ED_ITS ---
HPI - Skin/Abscess/Foreign Bdy General Chief complaint: Skin/Abscess/Foreign Body Stated complaint: incision infection; 4 months post op Time Seen by Provider: 01/28/24 13:50 Source: patient and EMS Mode of arrival: EMS Limitations: no limitations Related Data Home Medications Medication Instructions Recorded Confirmed hydrochlorothiazide 50 mg tablet 50 mg PO DAILY 09/23/23 09/23/23 Previous Rx's Medication Instructions Recorded insulin NPH isoph U-100 human 100 40 unit (0.4 mL) SUBCUT BID #10 mL 10/30/22 unit/mL subcutaneous suspension (Novolin N NPH U-100 Insulin isophane) amlodipine 10 mg tablet 10 mg PO QDAY #90 tabs 06/14/23 flash glucose scanning reader #1 ea 10/22/23 (FreeStyle Joseph 2 [place]) flash glucose sensor (FreeStyle #2 ea 10/22/23 Joseph 2 Sensor kit) gabapentin 300 mg capsule 300 mg PO ONCE PM #90 caps 11/04/23 hydrochlorothiazide 50 mg tablet 50 mg PO DAILY #90 tabs 11/04/23 lisinopril 40 mg tablet 40 mg PO DAILY #90 tabs 11/04/23 catheter 18 Fr #5 ea 11/11/23 Allergies Allergy/AdvReac Type Severity Reaction Status Date / Time latex Allergy Intermediate Rash Verified 01/28/24 12:37 ertapenem AdvReac Severe Hallucinati Verified 01/28/24 13:31 ng Patient History Medical History Paraplegia Chronic pain Hypertension Diabetes mellitus Urinary tract infection Scrotal mass Social History household members: none Smoking Status: Former smoker alcohol intake: former substance use type: does not use Smoking Status: Former smoker Substance Use Type: does not use Exam Initial Vital Signs Initial Vital Signs: Vital Signs Temperature 97.8 F 01/28/24 12:38 Pulse Rate 112 H 01/28/24 12:38 Respiratory Rate 18 01/28/24 12:38 Blood Pressure 125/67 01/28/24 12:38 Pulse Oximetry 99 01/28/24 12:38 Oxygen Delivery Method Room Air 01/28/24 12:38 Course Orders Ordered: ED Orders 01/28/24 12:49 CT abdomen pelvis w con Stat XR chest 1V Stat Blood Culture Stat EKG-12 Lead Stat RT Consult Eval and Treat NOW 01/28/24 13:20 Complete Blood Count AUTO DIFF Stat Comprehensive Metabolic Panel Stat Lactate (Lactic Acid) Stat Lipase Stat PTT Partial Thromboplastin Ajay Stat Procalcitonin Stat Prothrombin Time INR Stat Ondansetron HCl (Ondansetron 4 Mg/2 Ml Inj) 4 mg IV NOW PRN PRN Reason: Nausea And Vomiting Ondansetron HCl (Ondansetron 4 Mg Odt) 4 mg SL NOW PRN PRN Reason: Nausea And Vomiting Discontinued Medications Sodium Chloride (Normal Saline 0.9%) 1,000 mls @ 1,000 mls/hr IV BOLUS ONE Stop: 01/28/24 13:47 Last Infusion: 01/28/24 13:40 Dose: 1,000 mls/hr Documented By: Infusion: 01/28/24 13:28 Dose: 0 mls/hr Documented By: Admin: 01/28/24 13:27 Dose: 1,000 mls/hr Documented By: BEL Lorazepam (Lorazepam 0.5 Mg Tablet) 1 mg PO NOW ONE Stop: 01/28/24 13:49 Vital Signs Vital signs: Vital Signs - 8 hr 01/28/24 12:38 Temperature 97.8 F Pulse Rate 112 H Respiratory Rate 18 Blood Pressure 125/67 Pulse Oximetry 99 Oxygen Delivery Method Room Air MDM - Skin/Abscess/Foreign Bdy Lab Data 01/28/24 13:20 01/28/24 13:20 Labs: Lab Results 01/28/24 Range/Units 13:20 WBC 12.4 H (4.5-11.0) X10^3/uL RBC 4.00 L (4.5-5.9) X10^6/uL Hgb 9.0 L (13.5-17.5) g/dL Hct 27.4 L (41-53) % MCV 68.6 L (80-100) fL MCH 22.4 L (26-34) PG MCHC 32.7 (30-36) % RDW 20.0 H (11.6-14.8) % Plt Count 798 H (150-400) X10^3/uL Neut % (Auto) 81.7 H (50-75) % Lymph % (Auto) 7.2 L (25-40) % Grady % (Auto) 9.4 (3-14) % Eos % (Auto) 1.0 L (2-4) % Baso % (Auto) 0.7 (0-2) % Neut # (Auto) 92259 H (3244-3865) /uL Lymph # (Auto) 900 L (7638-6188) /uL Grady # (Auto) 1200 H (0-900) /uL Eos # (Auto) 100 (0-450) /uL Baso # (Auto) 100 (0-100) /uL Discharge Plan Departure Prescriptions: No Action amlodipine 10 mg tablet 10 mg PO QDAY Qty: 90 0RF Rx Instructions: APPOINTMENT DUE FOR FURTHER REFILLS. 06/14/23 (DME) [facility] [place] [facility] See [facility] Instructions .ROUTE .MEDSUPPLY Qty: 1 1RF Rx Instructions: USE TO TEST BLOOD GLUCOSE LEVELS CONTINUOUSLY. REPLACE IN AFTER 3 YEARS OR DAMAGED (DME) FreeStyle Joseph 2 Sensor Kit See Rx Instructions .ROUTE .MEDSUPPLY Qty: 2 12RF Rx Instructions: USE TO CHECK BLOOD GLUCOSE LEVELS CONTINUOUSLY. REPLACE EVERY 14 DAYS. gabapentin 300 mg capsule 300 mg PO ONCE PM Qty: 90 0RF lisinopril 40 mg tablet 40 mg PO DAILY Qty: 90 0RF hydrochlorothiazide 50 mg tablet 50 mg PO DAILY Qty: 90 0RF (DME) catheter 18 Fr misc See Rx Instructions .Route Qty: 5 5RF Rx Instructions: As directed Novolin N NPH U-100 Insulin 100 unit/mL suspension 40 unit SUBCUT BID Qty: 10 0RF hydrochlorothiazide 50 mg tablet 50 mg PO DAILY Referrals: Lara Yu DO [Primary Care Provider] -
[2024-01-28 13:52] LABS: Alanine Aminotransferase 24 IU/L (<50); Albumin Globulin Ratio 0.7 (1.0-2.8); Alkaline Phosphatase 162 U/L (38-126); Aspartate Aminotransferase 24 IU/L (17-59); BUN Creatinine Ratio 58.2 (6-22); Bilirubin Total 0.6 mg/dL (0.2-1.3); Blood Urea Nitrogen 32 mg/dL (9-20); Calcium 10.1 mg/dL (8.4-10.2); Carbon Dioxide 28 mmol/L (22-32); Chloride 99 mmol/L (98-107); Estimated Glomerular Filt Rate > 60 mL/min (>60); Globulin 5.5 g/dL (1.7-4.1); Glucose 171 mg/dL (80-110); HEMOLYSIS < 15 (0-50); Lipase 29 U/L (23-300); Potassium 4.3 mmol/L (3.4-5.1); Sodium 133 mmol/L (137-145); Total Protein 9.5 g/dL (6.3-8.2)
[2024-01-28 13:53] LABS: Lactate (Lactic Acid) 0.9 mmol/L (0.7-2.1)
[2024-01-28] MEDS: LORazepam 0.5 MG TABLET 1 MG PO (13:55)
--- NOTE | 2024-01-28 14:06 | PC.NURSE ---
Pt very anxious at this time. Medicated per MAR and will wait a few minutes to assess patient's wounds. Charge and provider made aware.
[2024-01-28 14:09] LABS: Procalcitonin 0.11 ng/mL (<0.5)
--- NOTE | 2024-01-28 14:23 | DI.CT.S_ITS ---
PROCEDURE: CT ABDOMEN PELVIS W CON INDICATIONS: large sacral/ischial decubitus ulcer evaluation TECHNIQUE: After the administration of intravenous contrast, axial sections acquired from the lung bases to the pubic symphysis. Coronal and sagittal reformats were performed. For radiation dose reduction, the following was used: automated exposure control, adjustment of mA and/or kV according to patient size. COMPARISON: [facility], CT, CT ABDOMEN PELVIS WITH CONTRAST, 10/10/2023, 8:54. FINDINGS: Image quality: Degraded by motion artifact. Lower Chest: Cardiomegaly. Calcification of the coronary vasculature. ABDOMEN: Liver: No solid mass. Gallbladder: Multiple calculi within the gallbladder lumen. Biliary ducts: No biliary dilation. Pancreas: No ductal dilation. Spleen: Size is within normal limits. Adrenal Glands: No adrenal nodules. Kidneys and Ureters: Multiple bilateral renal cysts are present, as before. There is a nonobstructing 3 mm calcification within the inferior pole right kidney. There is mild right hydronephrosis. Mild left hydronephrosis is present. Stomach and Bowel: Normal colonic caliber, without significant wall thickening. No change in rectal prolapse. Normal appendix. Peritoneum: No abnormal intraperitoneal fluid. No free air. Ventral Wall: No significant ventral hernia. Abdominal Nodes: No retroperitoneal or mesenteric adenopathy by size criteria. Vessels: Aorta and inferior vena cava are normal in size. PELVIS: Pelvic Organs: Unremarkable. Bladder: A Renteria catheter is present. Urinary bladder is decompressed. Pelvic Nodes: Multiple mildly prominent left iliac chain lymph nodes. Miscellaneous: No inguinal hernias are seen. There has been progressive ulceration overlying the left ischial. Bones: There has been progressive severe erosive abnormality and remodeling involving the left ischium, left acetabulum, left femoral head, and left proximal femur. There is a pathological fracture of the left femoral neck, new since the prior examination. There is increased gas and fluid adjacent to the left proximal femur. Thoracolumbar stabilization hardware is present. IMPRESSION: 1. 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 2. There is a new pathological fracture of the left femoral neck. 3. There is increased gas within the left femoral head and soft tissues surrounding the left proximal femur, which may indicate infection with a gas producing organism. 4. No percutaneously drainable fluid collection. Orthopedic surgical consultation is recommended. 5. Cholelithiasis. 6. Nonobstructing right renal calculus. 7. Mild bilateral hydronephrosis. 8. Coronary artery disease. 9. Presumably reactive left iliac chain lymphadenopathy. Continued follow-up is recommended to exclude malignancy. Dictated by: Marianna Valdovinos M.D. on 01/28/2024 at 16:46 Approved by: Marianna Valdovinos M.D. on 01/28/2024 at 16:54
--- NOTE | 2024-01-28 14:34 | PC.NURSE ---
Pt refusing to have a new leg bag placed, his are special ordered. Pt's bag was disconnected and a syringe hooked up to catheter for clean sample. Syringe remains hooked up awaiting urine output. Pt anxious and requesting more anxiety medications. He is skeptical about performing care, questioning why samples are necessary. Pt's sister Jerilyn remains at bedside and is encouraging pt to allow staff to perform care.
[2024-01-28 14:41] LABS: Microcytosis 1+; Schistocytes 1+
[2024-01-28 14:42] LABS: Acanthocytes 1+; Anisocytosis 2+; Ovalocytes 1+; Target Cells 1+
[2024-01-28 14:43] LABS: Rouleaux 1+
--- NOTE | 2024-01-28 15:10 | PC.NURSE ---
MEDICAL AUTHORIZATION SPECIALIST Note: Helped RN to reposition patient, patient kept stating he was very anxious during entire time with patient. RN aware.
--- NOTE | 2024-01-28 15:19 | PC.NURSE ---
Assisted by LINDA Mcmillan. Pt has multiple open and closed wounds and pressure ulcers on his bottom in various stages of healing with redness, purple discoloration, and maceration. Scrotum is also discolored with some maceration. The most notable wound that this RN notes is a stage 4 pressure ulcer that is 2.5 long x3.5 wide with purulent discharge. We are unable to measure depth due to patient anxiety. Patient states he is very anxious multiple times and this RN stops assessing at this time. Unable to fully assess and measure all wounds due to patient anxiety. Provider Marii made aware.
[2024-01-28 15:44] LABS: Bacteria Urine Many (>30); Culture Indicated Urine Specimen Cultured; RBC Urine None Seen (0-5/HPF); Squamous Epithelial Cell Urine 0-1 /HPF (0-5/HPF); Urine Volume 10mL (spun); WBC Urine 1-5/HPF (0-5/HPF)
[2024-01-28] MEDS: LORazepam 2 MG/ML INJ IV (16:12)
--- NOTE | 2024-01-28 17:56 | PC.NURSE ---
Updated sister, Jerilyn, at patient's request. Jerilyn wanted this RN to know that Aline want to do surgery to shave the bone on his wound, but that the ball was dropped.
[2024-01-28] MEDS: cefTRIAXone 1,000 MG in SODIUM CHLORIDE 0.9% 100 ML 200 MG IV (18:26)
[2024-01-28] MEDS: HYDROMORPHONE 0.5 MG INJ IV ×2 (18:36→19:42)
--- NOTE | 2024-01-28 19:00 | ED.SKABFB ---
HPI - Skin/Abscess/Foreign Bdy <Phillip Mcfarland, DO - Last Filed: 01/29/24 18:37> General Chief complaint: Skin/Abscess/Foreign Body Stated complaint: incision infection; 4 months post op Time Seen by Provider: 01/28/24 13:50 Source: patient and EMS Mode of arrival: EMS Limitations: no limitations History of Present Illness HPI narrative: Patient is a 68-year-old male. Is a paraplegic. Has had an extensive medical history with decubitus ulcers requiring multiple surgical debridements and wound VAC and wound care and antibiotics and infectious disease consultation. He has a colostomy and police. This was done in order to try to provide hygiene to the area to try to help with healing of the ulcers. Per report spent an extended period of time at an outside facility for treatment. It was deemed that he was appropriate to be transferred to a rehab facility where he was for several weeks. He was discharged from this facility within the past week with formerly [facility]. He is not currently on any antibiotics. He had his 1st appointment with home health today when they came to evaluate him and looked at his wound and according to with the patient states he was told that this would was outside of the capability to treat and was told that they would not take him any further under their care and he was advised to come to the emergency department for evaluation. Patient arrives in the emergency department today. According to the patient he actually feels very similar today as to what he has over the past week. He is unsure as to whether or not the wound actually looks better or worse as he is unable to see it. He denies chest pain, headache, shortness of breath, abdominal pain. He has chronic pain in his hips. Related Data Home Medications Medication Instructions Recorded Confirmed hydrochlorothiazide 50 mg tablet 50 mg PO DAILY 09/23/23 01/29/24 hydroxyzine pamoate 100 mg capsule 300 mg PO BEDTIME 01/29/24 01/29/24 insulin NPH isoph U-100 human 100 See Rx Instructions .Route .COMPLEX 01/29/24 01/29/24 unit/mL subcutaneous suspension (Novolin N NPH U-100 Insulin isophane) Previous Rx's Medication Instructions Recorded amlodipine 10 mg tablet 10 mg PO QDAY #90 tabs 06/14/23 flash glucose scanning reader #1 ea 10/22/23 (Trulioo Joseph 2 Dunlap) flash glucose sensor (FreeStyle #2 ea 10/22/23 Joseph 2 Sensor kit) gabapentin 300 mg capsule 300 mg PO ONCE PM #90 caps 11/04/23 lisinopril 40 mg tablet 40 mg PO DAILY #90 tabs 11/04/23 catheter 18 Fr #5 ea 11/11/23 Allergies Allergy/AdvReac Type Severity Reaction Status Date / Time latex Allergy Intermediate Rash Verified 01/28/24 12:37 ertapenem AdvReac Severe Hallucinati Verified 01/28/24 13:31 ng Review of Systems <Phillip Mcfarland DO - Last Filed: 01/29/24 18:37> Review of Systems ROS Unobtainable: All systems reviewed & are unremarkable except as noted in HPI and below Patient History <Phillip Mcfarland DO - Last Filed: 01/29/24 18:37> Medical History Paraplegia Chronic pain Hypertension Diabetes mellitus Urinary tract infection Scrotal mass Social History household members: none Smoking Status: Former smoker alcohol intake: former substance use type: does not use Smoking Status: Former smoker Substance Use Type: does not use Exam <Phillip Mcfarland DO - Last Filed: 01/29/24 18:37> Initial Vital Signs Initial Vital Signs: Vital Signs Temperature 97.8 F 01/28/24 12:38 Pulse Rate 112 H 01/28/24 12:38 Respiratory Rate 18 01/28/24 12:38 Blood Pressure 125/67 01/28/24 12:38 Pulse Oximetry 99 01/28/24 12:38 Oxygen Delivery Method Room Air 01/28/24 12:38 Const General: No ill appearing Other: Chronically ill-appearing [facility] Head: normal to inspection and normocephalic Resp Effort & Inspection: normal respiratory effort Auscultation: clear to auscultation bilaterally Cardio Rate: tachycardic Rhythm: regular rhythm GI Other: Colostomy in place Skin Other: Patient has an extensive ulceration/wounds to his left buttock/left hip. There was minimal surrounding erythema. There is sloughing of the skin from the area. Over the femoral head there is very little tissue between the environment and what appears to be the bony structure. No vesicles noted. Neuro General: patient alert, patient awake and patient oriented x3 <Gwen Colvin MD - Last Filed: 01/29/24 18:50> Initial Vital Signs Initial Vital Signs: Vital Signs Temperature 97.8 F 01/28/24 12:38 Pulse Rate 112 H 01/28/24 12:38 Respiratory Rate 18 01/28/24 12:38 Blood Pressure 125/67 01/28/24 12:38 Pulse Oximetry 99 01/28/24 12:38 Oxygen Delivery Method Room Air 01/28/24 12:38 Course <Phillip Mcfarland DO - Last Filed: 01/29/24 18:37> Orders Ordered: Discontinued Medications Amlodipine Besylate (Amlodipine 5 Mg Tablet) 10 mg PO DAILY [facility] Last Admin: 01/29/24 09:05 Dose: 10 mg Documented By: BRISEYDA Diclofenac Sodium (Diclofenac 1% Gel 100 Gm) 1 applic TOP NOW ONE Stop: 01/28/24 21:26 Last Admin: 01/28/24 21:57 Dose: Not Given Documented By: MAYNOR Hydrochlorothiazide (Hydrochlorothiazide 25 Mg Tablet) 50 mg PO DAILY [facility] Last Admin: 01/29/24 09:06 Dose: 50 mg Documented By: BRISEYDA Hydromorphone HCl (Hydromorphone 0.5 Mg Inj) 0.5 mg IV NOW ONE Stop: 01/28/24 18:33 Last Admin: 01/28/24 18:36 Dose: 0.5 mg Documented By: BEL Hydromorphone HCl (Hydromorphone 0.5 Mg Inj) 0.5 mg IV NOW ONE Stop: 01/28/24 19:15 Last Admin: 01/28/24 19:42 Dose: 0.5 mg Documented By: BEL Hydromorphone HCl (Hydromorphone 0.5 Mg Inj) 0.5 mg IV NOW ONE Stop: 01/29/24 00:11 Last Admin: 01/29/24 00:28 Dose: 0.5 mg Documented By: SB Hydromorphone HCl (Hydromorphone 0.5 Mg Inj) 0.5 mg IV NOW ONE Stop: 01/29/24 04:37 Last Admin: 01/29/24 04:57 Dose: 0.5 mg Documented By: YURIDIA Hydromorphone HCl (Hydromorphone 0.5 Mg Inj) 0.5 mg IV Q2HR PRN PRN Reason: Pain, Mild (1-3) Last Admin: 01/29/24 12:57 Dose: 0.5 mg Documented By: Admin: 01/29/24 11:22 Dose: 0.5 mg Documented By: Admin: 01/29/24 08:20 Dose: 0.5 mg Documented By: BRISEYDA Hydromorphone HCl (Hydromorphone 0.5 Mg Inj) 0.5 mg IV NOW ONE Stop: 01/29/24 12:46 Last Admin: 01/29/24 13:41 Dose: Not Given Documented By: BRISEYDA Sodium Chloride (Normal Saline 0.9%) 1,000 mls @ 1,000 mls/hr IV BOLUS ONE Stop: 01/28/24 13:47 Last Infusion: 01/28/24 15:20 Dose: Infused Documented By: Infusion: 01/28/24 13:40 Dose: 1,000 mls/hr Documented By: Infusion: 01/28/24 13:28 Dose: 0 mls/hr Documented By: Admin: 01/28/24 13:27 Dose: 1,000 mls/hr Documented By: BEL Ceftriaxone Sodium 1,000 mg/ (Sodium Chloride) 100 mls @ 200 mls/hr IV NOW ONE Stop: 01/28/24 18:13 Last Infusion: 01/28/24 18:56 Dose: Infused Documented By: Admin: 01/28/24 18:26 Dose: 200 mls/hr Documented By: BEL Vancomycin HCl (Vancomycin) 1,000 mg in 200 mls @ 200 mls/hr IV NOW ONE Stop: 01/28/24 19:11 Last Infusion: 01/28/24 20:24 Dose: Infused Documented By: Admin: 01/28/24 19:05 Dose: 200 mls/hr Documented By: LANDRY Clindamycin Phosphate (Cleocin) 900 mg in 50 mls @ 50 mls/hr IV NOW ONE Stop: 01/28/24 19:14 Last Infusion: 01/28/24 21:26 Dose: Infused Documented By: Admin: 01/28/24 20:24 Dose: 50 mls/hr Documented By: BEL Ceftriaxone Sodium 1,000 mg/ (Sodium Chloride) 100 mls @ 200 mls/hr IV NOW ONE Stop: 01/29/24 18:01 Clindamycin Phosphate (Cleocin) 900 mg in 50 mls @ 50 mls/hr IV Q6H [facility] Last Infusion: 01/29/24 06:57 Dose: Infused Documented By: Admin: 01/29/24 06:05 Dose: 50 mls/hr Documented By: GC Vancomycin HCl (Vancomycin) 1,000 mg in 200 mls @ 200 mls/hr IV Q12H [facility] Last Infusion: 01/29/24 10:43 Dose: Infused Documented By: Admin: 01/29/24 08:04 Dose: 200 mls/hr Documented By: BRISEYDA Meropenem 2 gm/ Sodium (Chloride) 100 mls @ 200 mls/hr IV Q12H [facility] Stop: 01/29/24 09:59 Last Infusion: 01/29/24 11:23 Dose: Infused Documented By: Admin: 01/29/24 10:44 Dose: 200 mls/hr Documented By: BRISEYDA Meropenem 1 gm/ Sodium (Chloride) 100 mls @ 33.333 mls/hr IV Q8H [facility] Micafungin Sodium 100 mg/ (Sodium Chloride) 100 mls @ 100 mls/hr IV DAILY [facility] Last Infusion: 01/29/24 12:41 Dose: Infused Documented By: Admin: 01/29/24 11:23 Dose: 100 mls/hr Documented By: BRISEYDA Insulin Human NPH (Insulin Nph 100 Unit/Ml 10ml Vial) 25 unit SUBCUT DAILY [facility] Last Admin: 01/29/24 09:47 Dose: 25 unit Documented By: BRISEYDA Co-signed By: MAYNOR Lidocaine (Lidocaine 5% Patch) 1 each TOP NOW ONE Stop: 01/28/24 21:56 Last Admin: 01/28/24 22:08 Dose: 1 each Documented By: BEL Lisinopril (Lisinopril 20 Mg Tablet) 40 mg PO DAILY [facility] Last Admin: 01/29/24 09:05 Dose: 40 mg Documented By: BRISEYDA Lorazepam (Lorazepam 0.5 Mg Tablet) 1 mg PO NOW ONE Stop: 01/28/24 13:49 Last Admin: 01/28/24 13:55 Dose: 1 mg Documented By: BEL Lorazepam (Lorazepam 2 Mg/Ml Inj) 2 mg IV NOW ONE Stop: 01/28/24 15:58 Last Admin: 01/28/24 16:12 Dose: 2 mg Documented By: BEL Lorazepam (Lorazepam 0.5 Mg Tablet) 1 mg PO NOW ONE Stop: 01/29/24 02:12 Last Admin: 01/29/24 02:40 Dose: 1 mg Documented By: GC Ondansetron HCl (Ondansetron 4 Mg/2 Ml Inj) 4 mg IV NOW PRN PRN Reason: Nausea And Vomiting Ondansetron HCl (Ondansetron 4 Mg Odt) 4 mg SL NOW PRN PRN Reason: Nausea And Vomiting Vancomycin HCl (Vancomycin Per Pharmacy) 1 request MISC NOW ONE Stop: 01/29/24 05:09 Last Admin: 01/29/24 05:44 Dose: Not Given Documented By: YURIDIA Vital Signs Vital signs: Vital Signs - 8 hr 01/29/24 11:00 01/29/24 11:15 01/29/24 11:18 Pulse Rate 91 H 83 84 Blood Pressure Pulse Oximetry 94 Oxygen Delivery Method Room Air 01/29/24 11:18 01/29/24 11:30 01/29/24 11:45 Pulse Rate 85 79 Blood Pressure 120/58 L Pulse Oximetry Oxygen Delivery Method 01/29/24 12:00 01/29/24 12:15 01/29/24 12:30 Pulse Rate 81 92 H 91 H Blood Pressure Pulse Oximetry Oxygen Delivery Method 01/29/24 12:33 01/29/24 12:33 Pulse Rate 91 H Blood Pressure 158/69 H Pulse Oximetry 97 Oxygen Delivery Method <Gwen Colvin MD - Last Filed: 01/29/24 18:50> Orders Ordered: Discontinued Medications Amlodipine Besylate (Amlodipine 5 Mg Tablet) 10 mg PO DAILY [facility] Last Admin: 01/29/24 09:05 Dose: 10 mg Documented By: BRISEYDA Diclofenac Sodium (Diclofenac 1% Gel 100 Gm) 1 applic TOP NOW ONE Stop: 01/28/24 21:26 Last Admin: 01/28/24 21:57 Dose: Not Given Documented By: MAYNOR Hydrochlorothiazide (Hydrochlorothiazide 25 Mg Tablet) 50 mg PO DAILY [facility] Last Admin: 01/29/24 09:06 Dose: 50 mg Documented By: BRISEYDA Hydromorphone HCl (Hydromorphone 0.5 Mg Inj) 0.5 mg IV NOW ONE Stop: 01/28/24 18:33 Last Admin: 01/28/24 18:36 Dose: 0.5 mg Documented By: BEL Hydromorphone HCl (Hydromorphone 0.5 Mg Inj) 0.5 mg IV NOW ONE Stop: 01/28/24 19:15 Last Admin: 01/28/24 19:42 Dose: 0.5 mg Documented By: BEL Hydromorphone HCl (Hydromorphone 0.5 Mg Inj) 0.5 mg IV NOW ONE Stop: 01/29/24 00:11 Last Admin: 01/29/24 00:28 Dose: 0.5 mg Documented By: BEL Hydromorphone HCl (Hydromorphone 0.5 Mg Inj) 0.5 mg IV NOW ONE Stop: 01/29/24 04:37 Last Admin: 01/29/24 04:57 Dose: 0.5 mg Documented By: YURIDIA Hydromorphone HCl (Hydromorphone 0.5 Mg Inj) 0.5 mg IV Q2HR PRN PRN Reason: Pain, Mild (1-3) Last Admin: 01/29/24 12:57 Dose: 0.5 mg Documented By: Admin: 01/29/24 11:22 Dose: 0.5 mg Documented By: Admin: 01/29/24 08:20 Dose: 0.5 mg Documented By: BRISEYDA Hydromorphone HCl (Hydromorphone 0.5 Mg Inj) 0.5 mg IV NOW ONE Stop: 01/29/24 12:46 Last Admin: 01/29/24 13:41 Dose: Not Given Documented By: BRISEYDA Sodium Chloride (Normal Saline 0.9%) 1,000 mls @ 1,000 mls/hr IV BOLUS ONE Stop: 01/28/24 13:47 Last Infusion: 01/28/24 15:20 Dose: Infused Documented By: Infusion: 01/28/24 13:40 Dose: 1,000 mls/hr Documented By: Infusion: 01/28/24 13:28 Dose: 0 mls/hr Documented By: Admin: 01/28/24 13:27 Dose: 1,000 mls/hr Documented By: BEL Ceftriaxone Sodium 1,000 mg/ (Sodium Chloride) 100 mls @ 200 mls/hr IV NOW ONE Stop: 01/28/24 18:13 Last Infusion: 01/28/24 18:56 Dose: Infused Documented By: Admin: 01/28/24 18:26 Dose: 200 mls/hr Documented By: BEL Vancomycin HCl (Vancomycin) 1,000 mg in 200 mls @ 200 mls/hr IV NOW ONE Stop: 01/28/24 19:11 Last Infusion: 01/28/24 20:24 Dose: Infused Documented By: Admin: 01/28/24 19:05 Dose: 200 mls/hr Documented By: LANDRY Clindamycin Phosphate (Cleocin) 900 mg in 50 mls @ 50 mls/hr IV NOW ONE Stop: 01/28/24 19:14 Last Infusion: 01/28/24 21:26 Dose: Infused Documented By: Admin: 01/28/24 20:24 Dose: 50 mls/hr Documented By: BEL Ceftriaxone Sodium 1,000 mg/ (Sodium Chloride) 100 mls @ 200 mls/hr IV NOW ONE Stop: 01/29/24 18:01 Clindamycin Phosphate (Cleocin) 900 mg in 50 mls @ 50 mls/hr IV Q6H [facility] Last Infusion: 01/29/24 06:57 Dose: Infused Documented By: Admin: 01/29/24 06:05 Dose: 50 mls/hr Documented By: GC Vancomycin HCl (Vancomycin) 1,000 mg in 200 mls @ 200 mls/hr IV Q12H [facility] Last Infusion: 01/29/24 10:43 Dose: Infused Documented By: Admin: 01/29/24 08:04 Dose: 200 mls/hr Documented By: BRISEYDA Meropenem 2 gm/ Sodium (Chloride) 100 mls @ 200 mls/hr IV Q12H YG Stop: 01/29/24 09:59 Last Infusion: 01/29/24 11:23 Dose: Infused Documented By: Admin: 01/29/24 10:44 Dose: 200 mls/hr Documented By: BRISEYDA Meropenem 1 gm/ Sodium (Chloride) 100 mls @ 33.333 mls/hr IV Q8H [facility] Micafungin Sodium 100 mg/ (Sodium Chloride) 100 mls @ 100 mls/hr IV DAILY YG Last Infusion: 01/29/24 12:41 Dose: Infused Documented By: Admin: 01/29/24 11:23 Dose: 100 mls/hr Documented By: BRISEYDA Insulin Human NPH (Insulin Nph 100 Unit/Ml 10ml Vial) 25 unit SUBCUT DAILY [facility] Last Admin: 01/29/24 09:47 Dose: 25 unit Documented By: BRISEYDA Co-signed By: MAYNOR Lidocaine (Lidocaine 5% Patch) 1 each TOP NOW ONE Stop: 01/28/24 21:56 Last Admin: 01/28/24 22:08 Dose: 1 each Documented By: BEL Lisinopril (Lisinopril 20 Mg Tablet) 40 mg PO DAILY [facility] Last Admin: 01/29/24 09:05 Dose: 40 mg Documented By: BRISEYDA Lorazepam (Lorazepam 0.5 Mg Tablet) 1 mg PO NOW ONE Stop: 01/28/24 13:49 Last Admin: 01/28/24 13:55 Dose: 1 mg Documented By: BEL Lorazepam (Lorazepam 2 Mg/Ml Inj) 2 mg IV NOW ONE Stop: 01/28/24 15:58 Last Admin: 01/28/24 16:12 Dose: 2 mg Documented By: BEL Lorazepam (Lorazepam 0.5 Mg Tablet) 1 mg PO NOW ONE Stop: 01/29/24 02:12 Last Admin: 01/29/24 02:40 Dose: 1 mg Documented By: YURIDIA Ondansetron HCl (Ondansetron 4 Mg/2 Ml Inj) 4 mg IV NOW PRN PRN Reason: Nausea And Vomiting Ondansetron HCl (Ondansetron 4 Mg Odt) 4 mg SL NOW PRN PRN Reason: Nausea And Vomiting Vancomycin HCl (Vancomycin Per Pharmacy) 1 request MISC NOW ONE Stop: 01/29/24 05:09 Last Admin: 01/29/24 05:44 Dose: Not Given Documented By: YURIDIA Vital Signs Vital signs: Vital Signs - 8 hr 01/29/24 11:00 01/29/24 11:15 01/29/24 11:18 Pulse Rate 91 H 83 84 Blood Pressure Pulse Oximetry 94 Oxygen Delivery Method Room Air 01/29/24 11:18 01/29/24 11:30 01/29/24 11:45 Pulse Rate 85 79 Blood Pressure 120/58 L Pulse Oximetry Oxygen Delivery Method 01/29/24 12:00 01/29/24 12:15 01/29/24 12:30 Pulse Rate 81 92 H 91 H Blood Pressure Pulse Oximetry Oxygen Delivery Method 01/29/24 12:33 01/29/24 12:33 Pulse Rate 91 H Blood Pressure 158/69 H Pulse Oximetry 97 Oxygen Delivery Method MDM - Skin/Abscess/Foreign Bdy <Phillip Mcfarland DO - Last Filed: 01/29/24 18:37> Medical Records Attestation: I reviewed the patient's medical records. Lab Data Attestation: I reviewed the patient's lab results. 01/29/24 07:36 01/29/24 07:36 Labs: Lab Results 01/28/24 01/28/24 01/29/24 Range/Units 13:20 14:47 07:36 WBC 12.4 H 10.9 (4.5-11.0) X10^3/uL RBC 4.00 L 3.68 L (4.5-5.9) X10^6/uL Hgb 9.0 L 8.0 L (13.5-17.5) g/dL Hct 27.4 L 25.1 L (41-53) % MCV 68.6 L 68.1 L (80-100) fL MCH 22.4 L 21.8 L (26-34) PG MCHC 32.7 32.1 (30-36) % RDW 20.0 H 19.7 H (11.6-14.8) % Plt Count 798 H 682 H (150-400) X10^3/uL Neut % (Auto) 81.7 H 73.1 (50-75) % Lymph % (Auto) 7.2 L 10.4 L (25-40) % Day % (Auto) 9.4 13.1 (3-14) % Eos % (Auto) 1.0 L 2.5 (2-4) % Baso % (Auto) 0.7 0.9 (0-2) % Neut # (Auto) 55829 H 7900 H (0970-8110) /uL Lymph # (Auto) 900 L 1100 (9594-8503) /uL Day # (Auto) 1200 H 1400 H (0-900) /uL Eos # (Auto) 100 300 (0-450) /uL Baso # (Auto) 100 100 (0-100) /uL RBC Morphology See below Not Reportable Hypochromasia 1+ H Anisocytosis 2+ H 2+ H Microcytosis 1+ H 1+ H Target Cells 1+ H Ovalocytes 1+ H Acanthocytes (Spur) 1+ Rouleaux 1+ H Schistocytes 1+ H PT 15.5 H (9.4-12.5) SECONDS INR 1.3 (0.9-1.3) APTT 33 (25.1-36.5) SECONDS Sodium 133 L 133 L (137-145) mmol/L Potassium 4.3 4.5 (3.4-5.1) mmol/L Chloride 99 103 (98-107) mmol/L Carbon Dioxide 28 23 (22-32) mmol/L BUN 32 H 28 H (9-20) mg/dL Creatinine 0.55 L 0.50 L (0.66-1.25) mg/dL Estimated GFR > 60 > 60 (>60) mL/min BUN/Creatinine Ratio 58.2 H 56.0 H (6-22) Glucose 171 H 223 H (80-110) mg/dL Lactate 0.9 (0.7-2.1) mmol/L Calcium 10.1 9.4 (8.4-10.2) mg/dL Total Bilirubin 0.6 (0.2-1.3) mg/dL AST 24 (17-59) IU/L ALT 24 (<50) IU/L Alkaline Phosphatase 162 H (38-126) U/L Total Protein 9.5 H (6.3-8.2) g/dL Albumin 4.0 (3.5-5.0) g/dL Globulin 5.5 H (1.7-4.1) g/dL Albumin/Globulin Ratio 0.7 L (1.0-2.8) Lipase 29 (23-300) U/L Procalcitonin 0.11 (<0.5) ng/mL Urine RBC None seen (0-5/HPF) Urine WBC 1-5/hpf (0-5/HPF) Ur Squamous Epith Cells 0-1 /hpf (0-5/HPF) Urine Bacteria Many (>30) H (None) Ur Culture Indicated? Specimen cultured Vol Urine Centrifuged 10ml (spun) Point of Care Testing Glucose POC 209 Urine Dip Bedside Urine Glucose Negative Bedside Urine Bilirubin - Negative Bedside Urine Ketone - Negative Urine Specific Sibley 1.020 Bedside Urine Occult Blood - Negative Bedside Urine pH 6.0 Bedside Urine Protein +/- 15 Bedside Urine Urobilinogen - Negative Bedside Urine Nitrite - Negative Bedside Urine Leukocytes + 70 Esterase Imaging Data Chest x-ray: Radiologist's Impression: PROCEDURE: XR CHEST 1V INDICATIONS: suspected sepsis TECHNIQUE: One view of the chest was acquired. COMPARISON: [facility], CR, XR CHEST 1V, 09/27/2023, 15:50. FINDINGS: Surgical changes and devices: Fractured right superior spinal stabilization ramírez. Lungs and pleura: Lungs are clear. No pleural effusions or pneumothorax. Mediastinum: Mediastinal contours appear normal. Heart size is normal. Bones and chest wall: No suspicious bony lesions. Overlying soft tissues appear unremarkable. IMPRESSION: 1. No acute process. 2. Fractured hardware as above. CT scan - abdomen/pelvis: Radiologist's Impression: Progressive left decubitus ulcer associated with severe osteomyelitis affecting the left pelvic structure as above, superimposed on chronic remodeling There is a new pathological fracture of the left femoral neck. There is increased gas within the left femoral head and soft tissues surrounding the left proximal femur, which may indicate infection with a gas producing organism. No percutaneously drainable fluid collection. Orthopedic surgical consultation is recommended Cholelithiasis Nonobstructing right renal calculus Mild right bilateral hydronephrosis Coronary artery disease Presumably reactive left iliac chain lymphadenopathy. Continued follow-up is recommended to exclude malignancy ECG Data Attestation: I personally reviewed and interpreted this ECG as follows: Interpretation: Sinus tachycardia Ventricular normal axis Normal QRS Normal QTC No ST T wave changes MDM Narrative Medical decision making narrative: Extensive medical history. He has an extensive ulceration/wound to his left buttock/pelvic region. Unsure whether or not the appearance of the wound today is improved from what it has been in the past or worsened although it does not look very well. Patient states that all the pain he is having is baseline for him. He denies any fevers. Does have a leukocytosis but a normal lactate. Tachycardic upon arrival but this improved. Cultures were obtained. CT scan shows multiple pathologies to include a pathologic fracture of the left femoral neck. Unsure whether not this is new because the comparison CT that was used was from October of 2023. There is gas within the femoral head in the soft tissues. There was some concern about a gas producing organism however clinically he does not appear this way in his gas very well could be because of the lack of tissue between the environment and the location of this on the CT scan. He was given antibiotics for this. There was no drainable fluid collection. Patient states that his home health has essentially refused to provide further care because they feel that this is outside of their capability to take care of at home. Patient does not have any other resources at home. Patient is going to need help with care of this wound potentially further surgical care. We are unable to provide that type of care here at this facility as we do not have plastic surgery, wound care, infectious disease. Attempted to contact the facility where he was most recently however there is no bed availability. No bed availability at other local facilities as well. We will continue to observe patient and provide antibiotics here in the ER while we attempt disposition. <Gwen Colvin MD - Last Filed: 01/29/24 18:50> Lab Data Labs: Lab Results 01/28/24 01/28/24 01/29/24 Range/Units 13:20 14:47 07:36 WBC 12.4 H 10.9 (4.5-11.0) X10^3/uL RBC 4.00 L 3.68 L (4.5-5.9) X10^6/uL Hgb 9.0 L 8.0 L (13.5-17.5) g/dL Hct 27.4 L 25.1 L (41-53) % MCV 68.6 L 68.1 L (80-100) fL MCH 22.4 L 21.8 L (26-34) PG MCHC 32.7 32.1 (30-36) % RDW 20.0 H 19.7 H (11.6-14.8) % Plt Count 798 H 682 H (150-400) X10^3/uL Neut % (Auto) 81.7 H 73.1 (50-75) % Lymph % (Auto) 7.2 L 10.4 L (25-40) % Day % (Auto) 9.4 13.1 (3-14) % Eos % (Auto) 1.0 L 2.5 (2-4) % Baso % (Auto) 0.7 0.9 (0-2) % Neut # (Auto) 90804 H 7900 H (8002-8686) /uL Lymph # (Auto) 900 L 1100 (8885-6262) /uL Day # (Auto) 1200 H 1400 H (0-900) /uL Eos # (Auto) 100 300 (0-450) /uL Baso # (Auto) 100 100 (0-100) /uL RBC Morphology See below Not Reportable Hypochromasia 1+ H Anisocytosis 2+ H 2+ H Microcytosis 1+ H 1+ H Target Cells 1+ H Ovalocytes 1+ H Acanthocytes (Spur) 1+ Rouleaux 1+ H Schistocytes 1+ H PT 15.5 H (9.4-12.5) SECONDS INR 1.3 (0.9-1.3) APTT 33 (25.1-36.5) SECONDS Sodium 133 L 133 L (137-145) mmol/L Potassium 4.3 4.5 (3.4-5.1) mmol/L Chloride 99 103 (98-107) mmol/L Carbon Dioxide 28 23 (22-32) mmol/L BUN 32 H 28 H (9-20) mg/dL Creatinine 0.55 L 0.50 L (0.66-1.25) mg/dL Estimated GFR > 60 > 60 (>60) mL/min BUN/Creatinine Ratio 58.2 H 56.0 H (6-22) Glucose 171 H 223 H (80-110) mg/dL Lactate 0.9 (0.7-2.1) mmol/L Calcium 10.1 9.4 (8.4-10.2) mg/dL Total Bilirubin 0.6 (0.2-1.3) mg/dL AST 24 (17-59) IU/L ALT 24 (<50) IU/L Alkaline Phosphatase 162 H (38-126) U/L Total Protein 9.5 H (6.3-8.2) g/dL Albumin 4.0 (3.5-5.0) g/dL Globulin 5.5 H (1.7-4.1) g/dL Albumin/Globulin Ratio 0.7 L (1.0-2.8) Lipase 29 (23-300) U/L Procalcitonin 0.11 (<0.5) ng/mL Urine RBC None seen (0-5/HPF) Urine WBC 1-5/hpf (0-5/HPF) Ur Squamous Epith Cells 0-1 /hpf (0-5/HPF) Urine Bacteria Many (>30) H (None) Ur Culture Indicated? Specimen cultured Vol Urine Centrifuged 10ml (spun) Point of Care Testing Glucose POC 209 Urine Dip Bedside Urine Glucose Negative Bedside Urine Bilirubin - Negative Bedside Urine Ketone - Negative Urine Specific [place] 1.020 Bedside Urine Occult Blood - Negative Bedside Urine pH 6.0 Bedside Urine Protein +/- 15 Bedside Urine Urobilinogen - Negative Bedside Urine Nitrite - Negative Bedside Urine Leukocytes + 70 Esterase MDM Narrative Medical decision making narrative: Extensive medical history. He has an extensive ulceration/wound to his left buttock/pelvic region. Unsure whether or not the appearance of the wound today is improved from what it has been in the past or worsened although it does not look very well. Patient states that all the pain he is having is baseline for him. He denies any fevers. Does have a leukocytosis but a normal lactate. Tachycardic upon arrival but this improved. Cultures were obtained. CT scan shows multiple pathologies to include a pathologic fracture of the left femoral neck. Unsure whether not this is new because the comparison CT that was used was from October of 2023. There is gas within the femoral head in the soft tissues. There was some concern about a gas producing organism however clinically he does not appear this way in his gas very well could be because of the lack of tissue between the environment and the location of this on the CT scan. He was given antibiotics for this. There was no drainable fluid collection. Patient states that his home health has essentially refused to provide further care because they feel that this is outside of their capability to take care of at home. Patient does not have any other resources at home. Patient is going to need help with care of this wound potentially further surgical care. We are unable to provide that type of care here at this facility as we do not have plastic surgery, wound care, infectious disease. Attempted to contact the facility where he was most recently however there is no bed availability. No bed availability at other local facilities as well. We will continue to observe patient and provide antibiotics here in the ER while we attempt disposition. 01/29/14 progress note 68-year-old gentleman with large sacral decubitus ulcer, admission to [facility], [facility], stay at [facility] and returned to [facility] within 4 days with significant progression. He has not having significant pain, fevers and does not appear to be septic and is hemodynamically stable Problems: 1. large decubitus ulcer. CT scan shows progression with osteomyelitis of the ischium acetabulum femoral head proximal femur all in the left side with a pathologic femur fracture. Was started on ceftriaxone, clindamycin and vancomycin. Consultation with Dr Lopez, at [facility], infectious disease specialist. While at [facility] his cultures had shown an ESBL E coli from the wound as well as urine. Enterococcus faecalis and yeast. Recommendations are to switch him to meropenem and caspofungin. Consultation with pharmacist and micofungin will be substituted 2. Diabetes, he is restarted on his daily NPH insulin 3. Hypertension we will continue lisinopril, hydrochlorothiazide and amlodipine 4. PTSD -not formally diagnosed however is patient has significant psychiatric injury after discharge from [facility]. May benefit from psychiatric consultation 5. Code status and future planning. Patient has a appropriate questions about how this can truly heal and where this will end. He had questions about physician assisted suicide. Discussion regarding appropriate help with this and realistic discussion along with possible palliative care consultation may well be appropriate. 6. Placement: Have spoken with [facility] which was where his initial transfer was after admit here in September. Briefly reviewed with the hospitalist team who felt that they could help with debridement and consultation. We will also need Infectious Disease consultation and admission to the hospitalist service. Floor care will be appropriate. At this point there are not beds available however reports are that is something should be available by this evening or tomorrow. javy Alejandra accepts admission call to [facility] [phone] to update Critical Care Time <Gwen Colvin MD - Last Filed: 01/29/24 18:50> Critical Care Time Critical Care Time: Yes Total Critical Care Time: 78 Attestation: Critical care time is separate from other billable procedures. There is a high probability of a significant, sudden or life-threatening deterioration that requires my full and direct attention, intervention and personal management. This critical care time includes consultation with family and other consulting doctors, review of records, and interpretation of data from labs, EKGs and imaging as well as managements of wound management, extended complex medical issues while in the emergency department and extensive consultation with outside facilities for placement Discharge Plan Departure Patient Disposition: [facility] Clinical Impression: Chronic paraplegia Decubitus ulcer of buttock, unstageable Qualifiers: Laterality: unspecified laterality Qualified Code(s): L89.300 - Pressure ulcer of unspecified buttock, unstageable Acute osteomyelitis involving pelvic region and thigh Qualifiers: Laterality: left Qualified Code(s): M86.152 - Other acute osteomyelitis, left femur Pathologic fracture of femoral neck Qualifiers: Encounter type: initial encounter Laterality: left Qualified Code(s): M84.452A - Pathological fracture, left femur, initial encounter for fracture Prescriptions: No Action amlodipine 10 mg tablet 10 mg PO QDAY Qty: 90 0RF Rx Instructions: APPOINTMENT DUE FOR FURTHER REFILLS. 06/14/23 (DME) FreeStyle Joseph 2 Dunlap Misc See Rx Instructions .ROUTE .MEDSUPPLY Qty: 1 1RF Rx Instructions: USE TO TEST BLOOD GLUCOSE LEVELS CONTINUOUSLY. REPLACE IN AFTER 3 YEARS OR DAMAGED (DME) FreeStyle Joseph 2 Sensor Kit See Rx Instructions .ROUTE .MEDSUPPLY Qty: 2 12RF Rx Instructions: USE TO CHECK BLOOD GLUCOSE LEVELS CONTINUOUSLY. REPLACE EVERY 14 DAYS. gabapentin 300 mg capsule 300 mg PO ONCE PM Qty: 90 0RF lisinopril 40 mg tablet 40 mg PO DAILY Qty: 90 0RF (DME) catheter 18 Fr misc See Rx Instructions .Route Qty: 5 5RF Rx Instructions: As directed Novolin N NPH U-100 Insulin 100 unit/mL suspension See Rx Instructions .ROUTE .COMPLEX Rx Instructions: 25 units in morning and 15 units at night hydroxyzine pamoate 100 mg Capsule 300 mg PO BEDTIME hydrochlorothiazide 50 mg tablet 50 mg PO DAILY Referrals: Lara Yu DO [Primary Care Provider] -
[2024-01-28] MEDS: VANCOMYCIN 1,000 MG/200 ML PIGGYBACK 200 MG IV (19:05)
[2024-01-28] MEDS: CLINDAMYCIN 900 MG/50 ML PIGGYBACK 50 MG IV (20:24)
[2024-01-28] MEDS: LIDOCAINE 5% PATCH 1 EACH TOP (22:08)
--- NOTE | 2024-01-28 23:37 | PC.NURSE ---
INVOICING MACHINE OPERATOR note: Attempted to put patient on telemetry and the sp02 monitor. Patient was arguing with me said they said I didn't need to wear it. Told him that his nurse wants him to wear it, and I gave him the 30 minute break like he asked. Attempted to put a sp02 finger sticky probe on. Patient yelled Hey! Hey! Hey! What are you doing? I'm very claustrophobic. Got patient a fan like he requested. Explained to him to try to get some rest. Nurse Agnieszka sanders.
[2024-01-29] VITALS (33 sets, daily range): BP systolic 100–161; BP diastolic 48–70; PULSE 79–96; RESP 14–24; TEMP 36.6; O2SAT 92–98
[2024-01-29] MEDS: HYDROMORPHONE 0.5 MG INJ IV ×5 (00:28→12:57)
--- NOTE | 2024-01-29 00:42 | PC.NURSE ---
Pt encouraged to reposition frequently. States he periodically rocks side to side to help relieve some of the pain and discomfort. Many pillows provided and offered to reposition patient. Assisted to right side with pillows. Patient given more milk at his request. Wounds remain covered at this time to reduce discomfort.
--- NOTE | 2024-01-29 01:29 | PC.NURSE ---
Medications updated. Patient has CGM and declines use of our glucometers. States, don't poke my fingers. No way. Pt personal glucometer reads 217. Provider made aware of patient updated med list and situation regarding glucometer. OK to use his CGM for reads at this time per provider Bartolo.
[2024-01-29] MEDS: LORazepam 0.5 MG TABLET 1 MG PO (02:40)
[2024-01-29] MEDS: CLINDAMYCIN 900 MG/50 ML PIGGYBACK 50 MG IV (06:05)
--- NOTE | 2024-01-29 06:28 | PC.NURSE ---
I called [facility], [facility], [facility], sarika kaminski. All said that they are currently full and have a 2+ day wait. Called back to [facility] to follow up since pt was previously there and Isabella at their transfer center said that she might have some availability in the AM and to call back to follow up and see about a possibility of transfer.
[2024-01-29 07:46] LABS: Add Manual Diff / Slide Review NO; Basophils Absolute Auto 100 /uL (0-100); Basophils Percent Auto 0.9 % (0-2); Eosinophils Absolute Auto 300 /uL (0-450); Eosinophils Percent Auto 2.5 % (2-4); Hematocrit 25.1 % (41-53); Lymphocytes Absolute Auto 1100 /uL (1100-4500); Lymphocytes Percent Auto 10.4 % (25-40); Mean Corpuscular HGB Conc 32.1 % (30-36); Mean Corpuscular Hemoglobin 21.8 PG (26-34); Mean Corpuscular Volume 68.1 fL (80-100); Monocytes Absolute Auto 1400 /uL (0-900); Monocytes Percent Auto 13.1 % (3-14); Neutrophils Absolute Auto 7900 /uL (1500-7000); Neutrophils Percent Auto 73.1 % (50-75); Platelet Count 682 X10^3/uL (150-400); Red Blood Cell Count 3.68 X10^6/uL (4.5-5.9); Red Cell Distribution Width 19.7 % (11.6-14.8); White Blood Cell Count 10.9 X10^3/uL (4.5-11.0)
[2024-01-29 07:55] LABS: Anisocytosis 2+; Hypochromasia 1+; Microcytosis 1+
[2024-01-29 08:02] LABS: Blood Urea Nitrogen 28 mg/dL (9-20); Calcium 9.4 mg/dL (8.4-10.2); Carbon Dioxide 23 mmol/L (22-32); Chloride 103 mmol/L (98-107); Estimated Glomerular Filt Rate > 60 mL/min (>60); Glucose 223 mg/dL (80-110); HEMOLYSIS < 15 (0-50); Potassium 4.5 mmol/L (3.4-5.1); Sodium 133 mmol/L (137-145)
[2024-01-29] MEDS: VANCOMYCIN 1,000 MG/200 ML PIGGYBACK 200 MG IV (08:04)
--- NOTE | 2024-01-29 08:44 | PC.WOUNDPHOT ---
Addendum entered by Makenzie Haley R.N. 01/29/24 08:46: left hip and buttock Original Note:
[2024-01-29] MEDS: lisinopriL 20 MG TABLET 40 MG PO (09:05)
[2024-01-29] MEDS: AMLODIPINE 5 MG TABLET 10 MG PO (09:05)
[2024-01-29] MEDS: hydroCHLOROthiazide 25 MG TABLET 50 MG PO (09:06)
--- NOTE | 2024-01-29 09:14 | PC.NURSE ---
New santos bag placed on pt. He wanted to keep his leg bag. I placed that in a belonging bag
[2024-01-29] MEDS: INSULIN NPH 100 UNIT/ML 10ML VIAL 25 UNIT SUBCUT (09:47)
[2024-01-29] MEDS: MEROPENEM 2 GM in SODIUM CHLORIDE 0.9% 100 ML IV (10:44)
[2024-01-29] MEDS: MICAFUNGIN 100 MG in SODIUM CHLORIDE 0.9% 100 ML IV (11:23)
--- NOTE | 2024-01-29 11:34 | PC.NURSE ---
Notified by [facility] that pt's roommate from previous facility has Hedy Auris and should place pt on Enteric Contact precautions. Completed. Dr. Colvin already aware and has discussed w/ Infection control,making changes to abx as appropriate.
== END 2024-01-29 13:05 | disposition short-term general hospital (02) ==
PROVIDERS: Emergency Medicine; Emergency Provider Emergency Medicine; PCP Family Medicine
DX: M84.452A Pathological fracture, left femur, initial encounter for fracture (principal); M86.152 Other acute osteomyelitis, left femur; L89.300 Pressure ulcer of unspecified buttock, unstageable; R00.0 Tachycardia, unspecified; G82.20 Paraplegia, unspecified
CPT/HCPCS: 36415; 71045; 74177; 80048; 80053; 81003; 81015; 82962; 83605; 83690; 84145; 85025; 85610; 85730; 87040; 87077; 87086; 87186; 93005; 96361; 96365; 96366; 96367; 96372; 96375; 96376; 99285; 99291; 99292; J0696; J1170; J2060; J2185; J2248